=== PATIENT | female | born 1960 | race Caucasian/White ===

== ENCOUNTER 2019-10-10 13:13 | Observation (INO) | payer OTHER ==
[2019-10-10 15:05] LABS: #Eosinphils 0.2 thou/uL (0.0-0.7); #Lymphocytes 0.6 thou/uL (1.20-3.40); #Monocytes 0.7 thou/uL (0.11-0.59); #Neutrophils 5.6 thou/uL (1.40-6.50); %Basophils 0.3 % (0.0-1.0); %Eosinophils 2.2 % (0.0-10.0); %Lymphocytes 8.6 % (21.0-51.0); %Monocytes 9.4 % (0.0-10.0); %Neutrophils 79.6 % (42.0-75.0); Hemoglobin 15.3 g/dL (12.0-16.0); Mean Corpuscular HGB CONC 31.7 g/dL (32.0-36.0); Mean Corpuscular Hemoglobin 31.1 pg (27.0-31.0); Mean Corpuscular Volume 98.1 fL (78.0-98.0); Mean Platelet Volume 8.2 fL (7.4-10.4); Platelet Count 154 thou/uL (130-400); RBC Distribution Width 14.6 % (11.5-14.5); Red Blood Cell (RBC) Count 4.93 mill/uL (4.20-5.40); White Blood Cell (WBC) Count 7.1 thou/uL (4.8-10.8)
[2019-10-10 15:26] LABS: Anion Gap 10 mmol/L (10-20); BUN (Urea Nitrogen) 10 mg/dL (9.8-20.1); Calc. Creatinine Clearance 0 mL/min (70-130); Calcium 9.7 mg/dL (7.8-10.44); Carbon Dioxide 36 mmol/L (22-29); Chloride 98 mmol/L (98-107); Estimated GFR-MDRD 81; Glucose 96 mg/dL (70-105); Potassium 4.2 mmol/L (3.5-5.1); Sodium 140 mmol/L (136-145)
[2019-10-10] MEDS ORDERED: Senokot S 8.6-50 MG TAB PO PRN (18:26)
[2019-10-10] MEDS ORDERED: Ondansetron ODT 4 MG TAB PO PRN (18:26)
[2019-10-10] MEDS ORDERED: Acetaminophen 325 MG TAB PO PRN (18:26)
[2019-10-10] MEDS ORDERED: Bisacodyl 5 MG TAB PO PRN (18:26)
[2019-10-10] MEDS ORDERED: Nystatin Powder 15 GM BOT TOP PRN (18:28)
[2019-10-10] MEDS ORDERED: hydrALAZINE 20 MG/ML VIAL SLOW IVP PRN (19:02)
[2019-10-10] MEDS ORDERED: traMADol HCl 50 MG TAB PO PRN (19:11)
--- NOTE | 2019-10-10 19:43 | HP ---
CHIEF COMPLAINT: Deconditioning, inability to take care of herself. HISTORY OF PRESENT ILLNESS: A 59-year-old female, with recent admission at [facility] for sepsis secondary to pneumonia, admitted on September 27 and discharged a week later, presented back to their facility and stayed there for 2 days and discharged back home. The patient was not able to take care of herself at home. She usually walks with a walker at home. But this time, she is not able to do so. She lives with her son. She came here for rehab options, [facility] was attempted. Some insurance issues with [facility] that we need to keep her under observation until they get a preauthorization. This has been looked into it by the ER case picker. Due to the nature of being weekend, she will be admitted for observation and then possibly to the long term facility. Initial evaluation was quite unremarkable including her labs. The patient is brought in for observation. REVIEW OF SYSTEMS: She did not have any fever, night sweats, or chills. No productive cough. She is more complaining about her pannus being quite painful. Denies any dysuria or hematuria. No nausea, vomiting, abdominal pain, constipation, or diarrhea. PAST MEDICAL HISTORY: Hypertension. MEDICATIONS: 1. Cefdinir 300 mg twice a day. 2. Coreg 25 mg twice a day. 3. Norvasc 2.5 mg daily. 4. Aspirin 81 mg daily. 5. I believe, irbesartan 150 mg daily. 6. Lovastatin, unknown dose. 7. Potassium chloride 20 mEq daily. 8. Sertraline 150 mg at bedtime. SOCIAL HISTORY: She lives with her son. No smoking or alcohol use. FAMILY HISTORY: Noncontributory. PHYSICAL EXAMINATION: VITAL SIGNS: Her temperature is 97.9, pulse 74, blood pressure 128/53, saturating 98% on room air. GENERAL: The patient is alert and oriented x4. She is not in any acute distress, but she is morbidly obese. CARDIOVASCULAR: Regular rate and rhythm without murmurs. LUNGS: Clear with anterior auscultation. ABDOMEN: Quite protuberant with significant pannus, but it is soft. Her pannus on the right side looked okay, but on the left side she does have significant erythema around the pannus area. EXTREMITIES: Lower extremities, chronic changes with stasis dermatitis. But no weeping or skin blisters noted. LABORATORY DATA: Her BMP panel seems to be okay in the normal range. CBC without any elevated leukocytosis. Her platelet is 154,000, hemoglobin 15.3. IMPRESSION AND PLAN: 1. A 59-year-old female with recent admission at [facility] for sepsis secondary to pneumonia, and did not go for a rehab, went home. Due to debilitation and inability to walk at baseline, she returned back seeking assistance for rehab options. 2. Cellulitis around the pannus area. 3. Morbid obesity. 4. Hypertension. 5. Deconditioning due to her morbid obesity. The patient is admitted for observation. Continue with cefdinir 300 mg twice a day for her cellulitis around the pannus area. Does not look ominous to start her on IV antibiotics. Continue with Coreg, Norvasc, irbesartan for her hypertension. PT and OT consult as well as case picker consult for placement assistance. Lovenox b.i.d. for DVT prophylaxis, given her morbid obesity, and full code. Job ID: [id number] [facility]
[2019-10-10 21:05] VITALS: BMI 71.1
[2019-10-10] MEDS: Famotidine 20 MG TAB PO SCH (21:26)
[2019-10-10] MEDS: Cefdinir 300 MG CAP PO SCH (21:28)
[2019-10-10] MEDS: Enoxaparin Sodium 40 MG/0.4 ML SYRINGE SC SCH (21:28)
[2019-10-10] MEDS ORDERED: Carvedilol 25 MG TAB PO SCH (23:45)
[2019-10-11 06:36] LABS: #Eosinphils 0.2 thou/uL (0.0-0.7); #Lymphocytes 0.8 thou/uL (1.20-3.40); #Monocytes 0.7 thou/uL (0.11-0.59); #Neutrophils 4.1 thou/uL (1.40-6.50); %Lymphocytes 13.3 % (21.0-51.0); %Monocytes 11.9 % (0.0-10.0); %Neutrophils 71.9 % (42.0-75.0); Mean Corpuscular Hemoglobin 30.7 pg (27.0-31.0); Mean Corpuscular Volume 98.9 fL (78.0-98.0); Mean Platelet Volume 7.9 fL (7.4-10.4); Platelet Count 149 thou/uL (130-400); RBC Distribution Width 14.6 % (11.5-14.5); Red Blood Cell (RBC) Count 4.55 mill/uL (4.20-5.40); White Blood Cell (WBC) Count 5.7 thou/uL (4.8-10.8)
[2019-10-11 06:54] LABS: Anion Gap 12 mmol/L (10-20); BUN (Urea Nitrogen) 10 mg/dL (9.8-20.1); Calc. Creatinine Clearance 274 mL/min (70-130); Calcium 8.8 mg/dL (7.8-10.44); Carbon Dioxide 33 mmol/L (22-29); Chloride 98 mmol/L (98-107); Estimated GFR-MDRD Greater than 90; Glucose 70 mg/dL (70-105); Potassium 3.9 mmol/L (3.5-5.1); Sodium 139 mmol/L (136-145)
[2019-10-11] MEDS: Cefdinir 300 MG CAP PO SCH ×2 (08:37→22:10)
[2019-10-11] MEDS: Carvedilol 25 MG TAB PO SCH ×2 (08:40→17:41)
[2019-10-11] MEDS: Enoxaparin Sodium 40 MG/0.4 ML SYRINGE SC SCH ×3 (08:40→22:23)
[2019-10-11] MEDS: Famotidine 20 MG TAB PO SCH ×2 (08:40→22:11)
[2019-10-11] MEDS ORDERED: Amlodipine 5 MG TAB PO SCH ×2 (09:00)
--- NOTE | 2019-10-11 11:29 | PDOC.HOSPP ---
- Subjective Encounter Date: 10/11/19 Encounter Time: 10:20 Subjective: pt resing and no new co/o. left pannus area pain controlled. rehab plan discussed. - Objective Vital Signs & Weight: Vital Signs (12 hours) Temp Pulse Resp BP BP Pulse Ox 10/11/19 11:00 98.0 F 67 20 191/84 H 96 10/11/19 08:39 67 170/90 H 10/11/19 07:53 98.3 F 67 20 170/90 H 93 L 10/11/19 04:00 98.9 F 64 18 145/75 H 96 10/11/19 00:00 98.7 F 65 18 156/76 H 91 L Weight Weight 389 lb I&O: 10/10/19 10/11/19 10/12/19 06:59 06:59 06:59 Intake Total 500 Balance 500 Result Diagrams: 10/11/19 06:11 10/11/19 06:11 Hospitalist ROS - Medication Medications: Active Medications Generic Name Dose Route Start Last Admin Trade Name Bettie PRN Reason Stop Dose Admin Amlodipine Besylate 5 mg 10/11/19 09:00 10/11/19 08:39 Norvasc PO 5 mg DAILY NAE Administration Carvedilol 25 mg 10/11/19 08:00 10/11/19 08:40 Coreg PO 25 mg BID-WM NAE Administration Cefdinir 300 mg 10/10/19 21:00 10/11/19 08:37 Omnicef PO 300 mg BID NAE Administration Enoxaparin Sodium 40 mg 10/10/19 21:00 10/11/19 08:40 Lovenox SC 40 mg 0900,2100 NAE Administration Famotidine 20 mg 10/10/19 21:00 10/11/19 08:40 Pepcid PO 20 mg BID NAE Administration Sertraline HCl 150 mg 10/11/19 09:00 10/11/19 08:38 Zoloft PO 150 mg DAILY NAE Administration - Exam General Appearance: NAD, awake alert General - other findings: morbid obese ENT: normocephalic atraumatic Neck: supple Heart: RRR, normal peripheral pulses Respiratory: CTAB, normal chest expansion Gastrointestinal: soft, normal bowel sounds Gastrointestinal - other findings: significant pannus Neurological: cranial nerve grossly intact, normal sensation to touch Psychiatric: normal affect, normal behavior, A&O x 3 Hosp A/P - Plan cellulitis in left pannus area - cw cefdinir and nystatin HTN --not ocnt'd - inc'd the dose of norvasc and scheduled hydralazine decondition Morbid obesity --PT and CM for rehab consulted. Braulio Full code
[2019-10-11] MEDS: hydrALAZINE 25 MG TAB PO SCH ×2 (15:36→22:11)
--- NOTE | 2019-10-11 16:27 | PDOC.EVN ---
Event Note - Event Note Event Note: pt noted to have vaginal bleed, menopause over 10yrs. hgb stable around at 14. after reveiwing transvaginal US, will request water sponger consult, if needed.
[2019-10-11] MEDS ORDERED: Non-Formulary Item 1 EACH (Lovastatin [Lovastatin] 10 MG) PO SCH (21:00)
[2019-10-11] MEDS: Montelukast Sodium 10 mg Tablet PO SCH (22:10)
[2019-10-11] MEDS: Simvastatin 5 MG TAB PO SCH (22:10)
[2019-10-11] MEDS: Amlodipine 5 MG TAB PO SCH (22:10)
[2019-10-12] MEDS: Famotidine 20 MG TAB PO SCH ×2 (09:07→21:02)
[2019-10-12] MEDS: Carvedilol 25 MG TAB PO SCH ×2 (09:08→16:56)
[2019-10-12] MEDS: Cefdinir 300 MG CAP PO SCH ×2 (09:08→21:02)
[2019-10-12] MEDS: hydrALAZINE 25 MG TAB PO SCH ×3 (09:08→21:02)
[2019-10-12] MEDS: Amlodipine 5 MG TAB PO SCH ×2 (09:09→21:03)
[2019-10-12] MEDS: Enoxaparin Sodium 40 MG/0.4 ML SYRINGE SC SCH ×2 (09:11→21:02)
--- NOTE | 2019-10-12 12:28 | PDOC.HOSPP ---
- Subjective Encounter Date: 10/12/19 Encounter Time: 10:10 Subjective: Patient is doing well she still has some vaginal bleed. Ultrasound is pending. - Objective Vital Signs & Weight: Vital Signs (12 hours) Temp Pulse Resp BP BP Pulse Ox 10/12/19 09:09 67 10/12/19 09:08 67 145/74 H 10/12/19 07:51 98.2 F 56 L 20 145/74 H 96 10/12/19 04:46 98 F 55 L 19 148/83 H 91 L 10/12/19 00:31 98.1 F 57 L 19 143/82 H 92 L Weight Admit Weight 389 lb Weight 389 lb I&O: 10/11/19 10/12/19 10/13/19 06:59 06:59 06:59 Intake Total 500 400 Balance 500 400 Result Diagrams: 10/11/19 06:11 10/11/19 06:11 Hospitalist ROS - Medication Medications: Active Medications Generic Name Dose Route Start Last Admin Trade Name Freq PRN Reason Stop Dose Admin Amlodipine Besylate 5 mg 10/11/19 21:00 10/12/19 09:09 Norvasc PO 5 mg BID NAE Administration Carvedilol 25 mg 10/11/19 08:00 10/12/19 09:08 Coreg PO 25 mg BID-WM NAE Administration Cefdinir 300 mg 10/10/19 21:00 10/12/19 09:08 Omnicef PO 300 mg BID NAE Administration Enoxaparin Sodium 40 mg 10/10/19 21:00 10/12/19 09:11 Lovenox SC 40 mg 0900,2100 NAE Administration Famotidine 20 mg 10/10/19 21:00 10/12/19 09:07 Pepcid PO 20 mg BID NAE Administration Hydralazine HCl 25 mg 10/11/19 15:00 10/12/19 09:08 Apresoline PO 25 mg TID NAE Administration Montelukast Sodium 10 mg 10/11/19 21:00 10/11/19 22:10 Singulair PO 10 mg HS NAE Administration Sertraline HCl 150 mg 10/11/19 09:00 10/12/19 09:08 Zoloft PO 150 mg DAILY NAE Administration Simvastatin 5 mg 10/11/19 21:00 10/11/19 22:10 Zocor PO 5 mg HS NAE Administration - Exam General Appearance: NAD, awake alert General - other findings: Obese Eye: PERRL ENT: normocephalic atraumatic Neck: supple Heart: RRR Respiratory: CTAB, normal chest expansion Gastrointestinal: soft, normal bowel sounds Neurological: cranial nerve grossly intact, no new deficit Psychiatric: normal affect, normal behavior, A&O x 3 Hosp A/P - Plan cellulitis in left pannus area - cw cefdinir and nystatin HTN --not ocnt'd - inc'd the dose of norvasc and scheduled hydralazine decondition Morbid obesity --PT and CM for rehab consulted. Lovenox Full code vaginal bleed, -menopause over 10yrs. -hgb stable around at 14. -transvaginal US, w -Request topographical engineer consult. -May need to follow up in the clinic, will establish the contact, while waiting for rehab.
--- NOTE | 2019-10-12 12:41 | ULT ---
ULTRASOUND PELVIC ULTRASOUND TRANSVAGINAL DOPPLER DUPLEX: DATE: 10/12/2019 HISTORY: 59-year-old female with vaginal bleeding TECHNIQUE: Transabdominal transducer and endovaginal transducer used to visualize intrapelvic contents with zamora scale, color-flow, and spectral analysis. FINDINGS: Because of body habitus and empty urinary bladder, intrapelvic contents are completely obscured on th e transabdominal images. On the transvaginal images, portions of the cervix are visualized. Endocervical canal is unremarkable . The rest of the uterus and ovaries, are not visualized. IMPRESSION: Nondiagnostic ultrasound study because of body habitus
--- NOTE | 2019-10-12 14:38 | CON ---
DATE OF CONSULTATION: 10/12/2019 REQUESTING PHYSICIAN: Yuniel Mills MD REASON FOR CONSULTATION: Vaginal bleeding. HISTORY OF PRESENT ILLNESS: Ms. Calvo is a 59-year-old white G1, P1, reportedly postmenopausal x10 years, who has had vaginal spotting over the last 2 days. She is currently in the hospital with a history of pneumonia and is here seeking placement for rehab care. The patient is a poor historian. The history is obtained directly from the patient. Of note is the fact that she states she had a normal Pap smear and exam 2 years ago in [place]. PAST MEDICAL HISTORY: Hypertension and obesity. PAST SURGICAL HISTORY: Hernia repair and panniculectomy. MEDICATIONS: Current medications are multiple and include, 1. Norvasc. 2. Coreg. 3. Omnicef. 4. Lovenox. 5. Pepcid. 6. Singulair. 7. Zocor. 8. Zofran. ALLERGIES: PENICILLINS, CLINDAMYCIN, DOXYCYCLINE, AND OXYCODONE. OTHERS ARE ALSO LISTED IN THE CHART. SOCIAL HISTORY: Denies tobacco or alcohol use. FAMILY HISTORY: She denies breast or pelvic malignancy in the family. PHYSICAL EXAMINATION: VITAL SIGNS: Vital signs this morning show a blood pressure of 154/74 with a pulse of 56, respirations of 20, and 96% O2 saturation on nasal cannula. GENERAL: The patient is pleasant and in no acute distress. ABDOMEN: Her abdomen is morbidly obese. PELVIC: Pelvic examination at the bedside with a bimanual shows only a small amount of blood on the glove. I feel no masses in her vagina, but I do not completely palpate her cervix as it appears to be located high in the vault. DIAGNOSTIC DATA: Pelvic ultrasound, both transabdominal and transvaginal ultrasounds are obtained. Both appear to be nondiagnostic. The transvaginal ultrasound apparently was not done with a full bladder. ASSESSMENT: Vaginal bleeding. PLAN: The patient's imaging is extremely limited at this point. I would recommend that the transvaginal ultrasound be repeated with a full bladder so that we can learn something about the contents of her pelvis. As the patient is not ambulatory at this time, I am unable to complete an adequate exam at the bedside. In this patient's best interest, I would think that when she is ambulatory, she needs a complete pelvic examination and this can be done at [facility] here locally. The number there is [phone] and an appointment can be made for her. Job ID: [id number]
[2019-10-12] MEDS ORDERED: Nystatin Powder 15 GM BOT TOP PRN (16:11)
[2019-10-12] MEDS: Simvastatin 5 MG TAB PO SCH (21:03)
[2019-10-12] MEDS: Montelukast Sodium 10 mg Tablet PO SCH (21:03)
[2019-10-12] MEDS: Nystatin Powder 15 GM BOT TOP SCH (21:04)
[2019-10-13] MEDS: hydrALAZINE 25 MG TAB PO SCH ×3 (08:32→22:49)
[2019-10-13] MEDS: Famotidine 20 MG TAB PO SCH ×2 (08:32→21:14)
[2019-10-13] MEDS: Carvedilol 25 MG TAB PO SCH ×2 (08:33→15:22)
[2019-10-13] MEDS: Amlodipine 5 MG TAB PO SCH ×2 (08:33→21:55)
[2019-10-13] MEDS: Enoxaparin Sodium 40 MG/0.4 ML SYRINGE SC SCH ×2 (08:33→21:14)
[2019-10-13] MEDS: Cefdinir 300 MG CAP PO SCH ×2 (09:54→21:13)
[2019-10-13] MEDS: Nystatin Powder 15 GM BOT TOP SCH ×2 (09:57→21:15)
--- NOTE | 2019-10-13 12:07 | ULT ---
TRANSABDOMINAL TRANSVAGINAL PELVIC ULTRASOUND DATE:: 10/13/2019 11:02 AM CLINICAL HISTORY: Vaginal bleeding. COMPARISON: Prior pelvic ultrasound dated October 12, 2019 TECHNIQUE: Grayscale, color Doppler and spectral Doppler images were obtained of the pelvis see a tra nsabdominal and transvaginal approach FINDINGS: UTERUS: Size: There is better detail of the uterus on the current examination due to poor distention the blad tani. The uterus measures 8.4 x 5.8 x 5.6 cm. Mass: None Cervix: Within normal limits. There are small nabothian cysts seen within the cervix Endometrial Thickness: Not seen OVARIES: The ovaries were not seen. CUL-DE-SAC: No free fluid IMPRESSION: Limited examination due to patient's body habitus. The endometrial stripe cannot be resolved. There a re small nabothian cysts within cervix. No free fluid is identified. The ovaries were not well seen. Would recommend consideration for MRI of the pelvis with and without contrast for additional ev aluation.
--- NOTE | 2019-10-13 12:52 | PDOC.HOSPP ---
- Subjective Encounter Date: 10/13/19 Encounter Time: 10:30 Subjective: PT is doing well she had no further vaginal bleed. We did the full bladder transvaginal ultrasound this morning. There is no mass found in the uterus ovaries were not seen no free fluid in the cul-de-sac the endometrial stripe cannot be resolved [I am unclear about what the report means resolved] - Objective Vital Signs & Weight: Vital Signs (12 hours) Temp Pulse Resp BP BP Pulse Ox 10/13/19 11:20 98.2 F 55 L 16 146/83 H 97 10/13/19 08:33 60 158/87 H 10/13/19 08:32 60 158/87 H 10/13/19 07:34 98.0 F 60 16 158/87 H 94 L 10/13/19 04:44 98.4 F 54 L 20 161/83 H 92 L Weight Admit Weight 389 lb Weight 389 lb I&O: 10/12/19 10/13/19 10/14/19 06:59 06:59 06:59 Intake Total 500 400 Balance 500 400 Result Diagrams: 10/11/19 06:11 10/11/19 06:11 Hospitalist ROS - Medication Medications: Active Medications Generic Name Dose Route Start Last Admin Trade Name Freq PRN Reason Stop Dose Admin Amlodipine Besylate 5 mg 10/11/19 21:00 10/13/19 08:33 Norvasc PO 5 mg BID NAE Administration Carvedilol 25 mg 10/11/19 08:00 10/13/19 08:33 Coreg PO 25 mg BID-WM NAE Administration Cefdinir 300 mg 10/10/19 21:00 10/13/19 09:54 Omnicef PO Not Given BID NAE Enoxaparin Sodium 40 mg 10/10/19 21:00 10/13/19 08:33 Lovenox SC 40 mg 0900,2100 NAE Administration Famotidine 20 mg 10/10/19 21:00 10/13/19 08:32 Pepcid PO 20 mg BID NAE Administration Hydralazine HCl 25 mg 10/11/19 15:00 10/13/19 08:32 Apresoline PO 25 mg TID NAE Administration Montelukast Sodium 10 mg 10/11/19 21:00 10/12/19 21:03 Singulair PO 10 mg HS NAE Administration Nystatin 0 gm 10/12/19 21:00 10/13/19 09:57 Mycostatin Powder TOP 1 applic BID NAE Administration Sertraline HCl 150 mg 10/11/19 09:00 10/13/19 08:32 Zoloft PO 150 mg DAILY NAE Administration Simvastatin 5 mg 10/11/19 21:00 10/12/19 21:03 Zocor PO 5 mg HS NAE Administration - Exam General Appearance: NAD, awake alert Eye: PERRL ENT: normocephalic atraumatic Neck: supple Heart: RRR, normal peripheral pulses Respiratory: CTAB, normal chest expansion Gastrointestinal: soft, normal bowel sounds Gastrointestinal - other findings: Massive pannus and fungal infection due to wetness beneath the soft tissues Neurological: no new deficit Hosp A/P - Plan cellulitis in left pannus area - cw cefdinir and nystatin HTN --not ocnt'd - inc'd the dose of norvasc and scheduled hydralazine decondition Morbid obesity --PT and CM for rehab consulted. Lovenox Full code vaginal bleed, -menopause over 10yrs. -hgb stable around at 14. -transvaginal US, w -Request physical therapy director consult. -May need to follow up in the clinic, will establish the contact, while waiting for rehab. We did the full bladder transvaginal ultrasound this morning. There is no mass found in the uterus ovaries were not seen no free fluid in the cul-de-sac the endometrial stripe cannot be resolved [I am unclear about what the report means resolved] I talked to the water main installer helper Dr. Hieu Langley. when patient is ambulatory, she needs a complete pelvic exam which can be done at the [facility] women[facility] clinic. number to call for an appointment [phone]. Now we are waiting for the rehab placement.
[2019-10-13] MEDS: Montelukast Sodium 10 mg Tablet PO SCH (21:12)
[2019-10-13] MEDS: Simvastatin 5 MG TAB PO SCH (21:16)
[2019-10-14] MEDS: Famotidine 20 MG TAB PO SCH ×2 (09:29→21:07)
[2019-10-14] MEDS: Cefdinir 300 MG CAP PO SCH ×2 (09:30→21:06)
[2019-10-14] MEDS: Amlodipine 5 MG TAB PO SCH ×2 (09:30→21:03)
[2019-10-14] MEDS: Enoxaparin Sodium 40 MG/0.4 ML SYRINGE SC SCH ×2 (09:30→21:06)
[2019-10-14] MEDS: Carvedilol 25 MG TAB PO SCH ×2 (09:30→17:17)
[2019-10-14] MEDS: hydrALAZINE 25 MG TAB PO SCH ×3 (09:30→21:05)
[2019-10-14] MEDS: Nystatin Powder 15 GM BOT TOP SCH ×2 (09:31→21:08)
--- NOTE | 2019-10-14 12:57 | PDOC.HOSPP ---
- Subjective Encounter Date: 10/14/19 Encounter Time: 10:40 Subjective: Patient wants to know whether her toenails can be trimmed. She appears well and [facility] I talked to the case management coordinator. - Objective Vital Signs & Weight: Vital Signs (12 hours) Temp Pulse Resp BP Pulse Ox 10/14/19 09:30 64 10/14/19 07:42 98.1 F 64 16 159/83 H 94 L Weight Admit Weight 389 lb Weight 389 lb I&O: 10/13/19 10/14/19 10/15/19 06:59 06:59 06:59 Intake Total 400 Balance 400 Result Diagrams: 10/11/19 06:11 10/11/19 06:11 Hospitalist ROS - Medication Medications: Active Medications Generic Name Dose Route Start Last Admin Trade Name Freq PRN Reason Stop Dose Admin Amlodipine Besylate 5 mg 10/11/19 21:00 10/14/19 09:30 Norvasc PO 5 mg BID NAE Administration Carvedilol 25 mg 10/11/19 08:00 10/14/19 09:30 Coreg PO 25 mg BID-WM NAE Administration Cefdinir 300 mg 10/10/19 21:00 10/14/19 09:30 Omnicef PO Not Given BID NAE Enoxaparin Sodium 40 mg 10/10/19 21:00 10/14/19 09:30 Lovenox SC 40 mg 0900,2100 NAE Administration Famotidine 20 mg 10/10/19 21:00 10/14/19 09:29 Pepcid PO 20 mg BID NAE Administration Hydralazine HCl 25 mg 10/11/19 15:00 10/14/19 09:30 Apresoline PO 25 mg TID NAE Administration Montelukast Sodium 10 mg 10/11/19 21:00 10/13/19 21:12 Singulair PO 10 mg HS NAE Administration Nystatin 0 gm 10/12/19 21:00 10/14/19 09:31 Mycostatin Powder TOP 1 applic BID NAE Administration Sertraline HCl 150 mg 10/11/19 09:00 10/14/19 09:30 Zoloft PO 150 mg DAILY NAE Administration Simvastatin 5 mg 10/11/19 21:00 10/13/19 21:16 Zocor PO 5 mg HS NAE Administration - Exam General Appearance: NAD, awake alert General - other findings: Obese, mild short of breath at rest but lung exam no adventitious lung soun Eye: PERRL ENT: normocephalic atraumatic Neck: supple Heart: RRR Respiratory: CTAB, normal chest expansion Gastrointestinal: soft, normal bowel sounds Gastrointestinal - other findings: huge pannus Neurological: no focal deficits Psychiatric: normal affect, normal behavior, A&O x 3 Hosp A/P - Plan cellulitis in left pannus area - cw cefdinir and nystatin HTN --not ocnt'd - inc'd the dose of norvasc and scheduled hydralazine decondition Morbid obesity --PT and CM for rehab consulted. Lovenox Full code vaginal bleed, -menopause over 10yrs. -hgb stable around at 14. -transvaginal US, w -Request apple checker consult. -May need to follow up in the clinic, will establish the contact, while waiting for rehab. We did the full bladder transvaginal ultrasound this morning. There is no mass found in the uterus ovaries were not seen no free fluid in the cul-de-sac the endometrial stripe cannot be resolved [I am unclear about what the report means resolved] I talked to the senior asp net developer Dr. Hieu Langley. when patient is ambulatory, she needs a complete pelvic exam which can be done at the [facility]. number to call for an appointment [phone]. Now we are waiting for the rehab placement. Toe nail growth --- outpt podiatry follow up. pending rehab.
[2019-10-14] MEDS: Montelukast Sodium 10 mg Tablet PO SCH (21:02)
[2019-10-14] MEDS: Simvastatin 5 MG TAB PO SCH (21:03)
[2019-10-15 07:35] VITALS: TEMP 98
[2019-10-15] MEDS: Cefdinir 300 MG CAP PO SCH (08:07)
[2019-10-15] MEDS: Famotidine 20 MG TAB PO SCH (08:07)
[2019-10-15] MEDS: Carvedilol 25 MG TAB PO SCH ×2 (08:08→16:34)
[2019-10-15] MEDS: hydrALAZINE 25 MG TAB PO SCH ×2 (08:08→15:29)
[2019-10-15] MEDS: Amlodipine 5 MG TAB PO SCH (08:08)
[2019-10-15] MEDS: Nystatin Powder 15 GM BOT TOP SCH (08:09)
[2019-10-15] MEDS: Enoxaparin Sodium 40 MG/0.4 ML SYRINGE SC SCH (08:09)
[2019-10-15 15:30] VITALS: BP 145/72
--- NOTE | 2019-10-16 08:58 | DIS ---
DATE OF ADMISSION: 10/10/2019 DATE OF DISCHARGE: 10/15/2019 DISCHARGE MEDICATIONS: 1. Nystatin twice a day as needed. 2. Singulair 10 mg at bedtime. 3. Clotrimazole. 4. Lovastatin 10 mg at bedtime. 5. Aspirin 81 mg daily. 6. Vitamin D3, 2000 units daily. 7. Ferrous sulfate 325 daily. 8. Coreg 25 mg twice a day. 9. Norvasc 5 mg daily. 10. Sertraline 150 mg daily. 11. Triamterene/hydrochlorothiazide 37.5/25 mg daily. DISCHARGE DIAGNOSES: 1. Vaginal bleed that stopped. 2. Debilitation due to body habitus. 3. Morbid obesity. [employer] consult with Dr. Henri Langley. The patient appears well. She has no complaints. She feels much better with pannus cellulitis that seems to be improved. She did not like cefdinir antibiotics. I have counseled her that she needs to follow up with [facility] when she is able. She needs to call for an appointment. She agreed. PHYSICAL EXAMINATION: VITAL SIGNS: On the day of discharge; temperature 98, pulse 66, blood pressure 156/79, saturating 94% with 2 L oxygen by nasal cannula. CARDIOVASCULAR: Regular rate and rhythm. LUNGS: Clear with anterior auscultation. ABDOMEN: Quite benign. HOSPITAL COURSE: This is a 59-year-old female with a BMI of 71 kg with 389 pounds, morbid obesity, presented with debilitation and not able to take care of herself at home. She also had cellulitis in her left pannus area. We treated with nystatin powder and cefdinir. She finished her course of antibiotics and she does not require any further plus she also felt quite nauseated with cefdinir. Her blood pressure also optimized with increasing her Norvasc to twice a day. The patient had vaginal bleed couple of times, and transvaginal ultrasound done twice, which did not reveal any abnormality. [employer] consulted. They recommended that she follows with the [facility]. The patient is clinically stable to transfer to [facility]. DISCHARGE INSTRUCTIONS: Activity as tolerated. Regular diet. Follow up with the PCP in 1 week after the rehab. Follow up with the [facility] when you can. Call the clinic for an appointment, . TIME SPENT: Discharge time took over 35 minutes. Job ID: [id number] [facility]
== END 2019-10-15 17:40 ==
LOC: ERS 13:13 → T4-A 17:59
PROVIDERS: ADMIT Internal Medicine; ATTEND Internal Medicine
DX: N93.9 Abnormal uterine and vaginal bleeding, unspecified (principal); R53.81 Other malaise; I10 Essential (primary) hypertension; L03.311 Cellulitis of abdominal wall; E66.01 Morbid (severe) obesity due to excess calories; Z68.45 Body mass index [BMI] 70 or greater, adult; Z79.82 Long term (current) use of aspirin; Z79.899 Other long term (current) drug therapy; Z88.0 Allergy status to penicillin; Z88.1 Allergy status to other antibiotic agents; Z88.2 Allergy status to sulfonamides; Z88.5 Allergy status to narcotic agent; Z88.8 Allergy status to other drugs, medicaments and biological substances
CPT/HCPCS: 36600; 76856; 80048; 85025; 96372; 99285; G0378; J1650

== ENCOUNTER 2019-12-06 15:09 | Emergency (ER) | payer OTHER ==
[2019-12-06] MEDS ORDERED: Ondansetron PF 4 MG/2 ML Vial ONE ×2 (15:41→20:02)
[2019-12-06 15:46] LABS: #Eosinphils 0.1 thou/uL (0.0-0.7); #Lymphocytes 1.3 thou/uL (1.20-3.40); #Monocytes 0.8 thou/uL (0.11-0.59); #Neutrophils 5.1 thou/uL (1.40-6.50); %Basophils 0.1 % (0.0-1.0); %Eosinophils 1.3 % (0.0-10.0); %Lymphocytes 17.1 % (21.0-51.0); %Monocytes 11.5 % (0.0-10.0); %Neutrophils 70.1 % (42.0-75.0); Hemoglobin 18.7 g/dL (12.0-16.0); Mean Corpuscular HGB CONC 31.3 g/dL (32.0-36.0); Mean Corpuscular Hemoglobin 29.3 pg (27.0-31.0); Mean Corpuscular Volume 93.8 fL (78.0-98.0); Mean Platelet Volume 9.2 fL (7.4-10.4); Platelet Count 132 thou/uL (130-400); RBC Distribution Width 13.1 % (11.5-14.5); Red Blood Cell (RBC) Count 6.38 mill/uL (4.20-5.40); White Blood Cell (WBC) Count 7.3 thou/uL (4.8-10.8)
[2019-12-06 16:07] LABS: ALT (SGPT) 22 U/L (8-55); AST (SGOT) 27 U/L (5-34); Albumin 4.2 g/dL (3.5-5.0); Alkaline Phosphatase 48 U/L (40-110); Anion Gap 19 mmol/L (10-20); BUN (Urea Nitrogen) 17 mg/dL (9.8-20.1); Bilirubin, Total 2.1 mg/dL (0.2-1.2); Calc. Creatinine Clearance 0 mL/min (70-130); Calcium 10.3 mg/dL (7.8-10.44); Carbon Dioxide 25 mmol/L (22-29); Chloride 96 mmol/L (98-107); Estimated GFR-MDRD 58; Globulin 3.7 g/dL (2.4-3.5); Glucose 85 mg/dL (70-105); Lipase 10 U/L (8-78); Potassium 3.4 mmol/L (3.5-5.1); Protein, Total 7.9 g/dL (6.0-8.3); Sodium 137 mmol/L (136-145)
--- NOTE | 2019-12-06 16:59 | CT ---
CT ABDOMEN AND PELVIS WITH IV CONTRAST 12/06/2019 CLINICAL INFORMATION: Abdominal pain and vomiting. COMPARISON: None. Technique: Multiple contiguous axial CT images are obtained through the abdomen and pelvis with IV contrast. Cor onal reformatted images are provided. FINDINGS: Lower Chest: Partially 7 mm pulmonary nodule left lateral costophrenic angle with calcified granuloma also seen at the left lung base. Vessels: Abdominal aorta is normal in caliber without evidence of an aortic dissection. Incidental no te is made of a circumaortic left renal vein. Abdomen: Portal vein:Patent Gallbladder: Filled with multiple gas densities related to multiple gallbladder calculi. Liver: Low-density lesion in the central liver measuring 5 cm. The patient's body wall is adjacent to the gantry of the CT scanner resulting in artifact through the upper abdomen which limits adequate evaluation. This could potential represent a large cyst, this cannot be further evaluated. Follow-up right upper quadrant ultrasound is recommended for further evaluation of this finding. Spleen: Enlarged in AP dimensions measuring 15 cm. Pancreas: within normal limits. Adrenals: Symmetric bilateral adrenal thickening which can be seen with adrenal hyperplasia. Kidneys: Artifact extending through the kidneys bilaterally much greater on the left. No obvious yemi l abnormality is appreciated. Bowel: Colonic diverticulosis is present. A 2.1 cm fat density area seen in the wall of the most prox imal transverse colon suggestive of a lipoma. Loops of small bowel are normal in caliber. Small hiatal hernia is present. Appendix: The appendix is visualized and normal in caliber. Peritoneum: No ascites or free air; no fluid collection. Mesentery and Retroperitoneum: No enlarged mesenteric or retroperitoneal lymph nodes. Abdominal Wall: within normal limits. Pelvis: Reproductive Organs: No pelvic masses. Bladder: within normal limits. Bones: No suspicious lytic or sclerotic osseous lesions. IMPRESSION: 1. Pulmonary nodule left lung base. CT thorax in 6 months is recommended for follow-up evaluation. 2. Hypodense lesion peripheral and central aspect of the liver measuring 5 cm. This lesion is difficu lt to actually characterize due to artifact through this region. A right upper quadrant ultrasound is recommended in attempt to further characterize this lesion. 3. Probable lipoma involving the wall of the proximal transverse colon. 4. Cholelithiasis. 5. No acute findings
[2019-12-06 19:15] LABS: Bilirubin Negative (Negative); Blood, Urine Negative (Negative); Clarity Clear (Clear); Glucose, Urine (Dipstick) Normal (Negative); Ketone, Urine Negative (Negative); Leukocyte Negative Leu/uL (Negative); Nitrite Negative (Negative); Protein, Urine (Dipstick) Negative (Neg-Trace); Urobilinogen Normal mg/dL (Less than 2)
[2019-12-06 19:16] LABS: Specific Gravity, Urine 1.051 (1.002-1.036)
== END 2019-12-06 21:18 | disposition home or self-care (01) ==
LOC: ERS 15:09
DX: R11.2 Nausea with vomiting, unspecified (principal); R19.7 Diarrhea, unspecified; K76.9 Liver disease, unspecified; R91.1 Solitary pulmonary nodule; E78.5 Hyperlipidemia, unspecified; E78.00 Pure hypercholesterolemia, unspecified; I10 Essential (primary) hypertension; K21.9 Gastro-esophageal reflux disease without esophagitis; F32.9 Major depressive disorder, single episode, unspecified; Z79.899 Other long term (current) drug therapy
CPT/HCPCS: 74177; 80053; 81003; 83690; 85025; 87077; 87086; 87186; 96361; 96374; 96376; J2405

== ENCOUNTER 2019-12-13 11:43 | Emergency (ER) | payer OTHER ==
[2019-12-13] MEDS ORDERED: Promethazine HCl 25 MG/ML VIAL ONE (12:14)
[2019-12-13 13:24] LABS: #Eosinphils 0.1 thou/uL (0.0-0.7); #Neutrophils 5.4 thou/uL (1.40-6.50); %Basophils 0.6 % (0.0-1.0); %Eosinophils 0.9 % (0.0-10.0); %Lymphocytes 13.6 % (21.0-51.0); %Monocytes 12.9 % (0.0-10.0); %Neutrophils 72.1 % (42.0-75.0); Hemoglobin 18.2 g/dL (12.0-16.0); Mean Corpuscular HGB CONC 32.7 g/dL (32.0-36.0); Mean Corpuscular Hemoglobin 30.4 pg (27.0-31.0); Mean Corpuscular Volume 92.9 fL (78.0-98.0); Mean Platelet Volume 9.9 fL (7.4-10.4); Platelet Count 137 thou/uL (130-400); RBC Distribution Width 12.9 % (11.5-14.5); Red Blood Cell (RBC) Count 5.99 mill/uL (4.20-5.40); White Blood Cell (WBC) Count 7.5 thou/uL (4.8-10.8)
[2019-12-13 13:46] LABS: ALT (SGPT) 19 U/L (8-55); AST (SGOT) 22 U/L (5-34); Albumin 3.8 g/dL (3.5-5.0); Alkaline Phosphatase 42 U/L (40-110); Anion Gap 22 mmol/L (10-20); BUN (Urea Nitrogen) 17 mg/dL (9.8-20.1); Bilirubin, Total 1.5 mg/dL (0.2-1.2); Calc. Creatinine Clearance 0 mL/min (70-130); Carbon Dioxide 18 mmol/L (22-29); Chloride 97 mmol/L (98-107); Estimated GFR-MDRD 61; Globulin 3.4 g/dL (2.4-3.5); Glucose 77 mg/dL (70-105); Potassium 3.7 mmol/L (3.5-5.1); Protein, Total 7.2 g/dL (6.0-8.3); Sodium 133 mmol/L (136-145)
[2019-12-13 16:26] LABS: Bacteria/HPF 4+ HPF (None Seen); Bilirubin Negative (Negative); Blood, Urine Trace (Negative); Clarity Turbid (Clear); Glucose, Urine (Dipstick) Normal (Negative); Ketone, Urine Trace mg/dL (Negative); Leukocyte 500 Leu/uL (Negative); Nitrite 2+ (Negative); Protein, Urine (Dipstick) 20 mg/dL (Neg-Trace); Urobilinogen Normal mg/dL (Less than 2); WBC/HPF Greater than 50 HPF (0-3); pH, Urine 5.5 (5.0-9.0)
== END 2019-12-13 21:38 | disposition home or self-care (01) ==
LOC: ERS 11:43
DX: N39.0 Urinary tract infection, site not specified (principal); R11.2 Nausea with vomiting, unspecified; E78.00 Pure hypercholesterolemia, unspecified; I10 Essential (primary) hypertension; K21.9 Gastro-esophageal reflux disease without esophagitis; F32.9 Major depressive disorder, single episode, unspecified; Z79.82 Long term (current) use of aspirin; Z79.899 Other long term (current) drug therapy
CPT/HCPCS: 36415; 80053; 81003; 81015; 85025; 87077; 87086; 87186; 96361; 96374; J2550

== ENCOUNTER 2020-01-11 14:32 | Inpatient (IN) | payer OTHER ==
--- NOTE | 2020-01-11 15:20 | CT ---
CT BRAIN WITHOUT CONTRAST: HISTORY: Dizziness, nystagmus and vomiting FINDINGS: No evidence of acute infarct, hemorrhage, midline shift or abnormal extra-axial fluid collections is seen. The ventricular size is appropriate and the basilar cisterns are patent. The bony calvarium is intact. The visualized paranasal sinuses and left mastoid air cells are well aerated. There is opa cification of the right mastoid air cells. There is artifact in the posterior fossa which reduces the sensitivity of the exam. IMPRESSION: No CT evidence of acute intracranial process. Further evaluation with MRI is recommended. Discussed over the telephone with ER physician Dr. Simmons at 3:16 PM
[2020-01-11 16:48] LABS: PTT 25.3 sec (22.9-36.1); Prothrombin Time 13.4 sec (12.0-14.7)
[2020-01-11 17:13] LABS: Mean Corpuscular HGB CONC 32.8 g/dL (32.0-36.0); Mean Corpuscular Volume 88.3 fL (78.0-98.0); Mean Platelet Volume 12.3 fL (7.4-10.4); Platelet Count 74 thou/uL (130-400); RBC Distribution Width 12.4 % (11.5-14.5); Red Blood Cell (RBC) Count 5.87 mill/uL (4.20-5.40); White Blood Cell (WBC) Count 10.2 thou/uL (4.8-10.8)
[2020-01-11 17:27] LABS: Bacteria/HPF 4+ HPF (None Seen); Bilirubin 2+ (Negative); Blood, Urine 2+ (Negative); Clarity Extra Turbid (Clear); Glucose, Urine (Dipstick) Normal (Negative); Ketone, Urine Trace mg/dL (Negative); Leukocyte 500 Leu/uL (Negative); Nitrite Negative (Negative); Protein, Urine (Dipstick) 50 mg/dL (Neg-Trace); Specific Gravity, Urine 1.025 (1.002-1.036); Squamous Epithelial 0-3 HPF (0-3); Transitional Epithelial 0-3 HPF (None Seen); Urobilinogen 6 mg/dL (Less than 2); WBC/HPF Greater than 50 HPF (0-3); pH, Urine 5.5 (5.0-9.0)
[2020-01-11 17:33] LABS: Band 2 % (5-11); Large Platelets SLIGHT; Lymphocytes 15 % (21-51); MDiff Complete? YES; Monocytes 6 % (0-10); Neutrophil 75 % (42-75); Platelet Morphology Comment Appears Decreased; RBC Morphology Normal; Reactive Lymphocytes 2 % (0-10)
[2020-01-11 17:34] LABS: AST (SGOT) 36 U/L (5-34); Anion Gap 27 mmol/L (10-20); Bilirubin, Total 1.6 mg/dL (0.2-1.2); Calcium 9.9 mg/dL (7.8-10.44); Carbon Dioxide 14 mmol/L (22-29); Chloride 95 mmol/L (98-107); Potassium 4.7 mmol/L (3.5-5.1); Sodium 131 mmol/L (136-145)
[2020-01-11 17:42] LABS: Albumin 3.9 g/dL (3.5-5.0); Globulin -0.9 g/dL (2.4-3.5)
[2020-01-11 17:45] LABS: Glucose 108 mg/dL (70-105)
[2020-01-11 17:48] LABS: Alkaline Phosphatase 53 U/L (40-110); Calc. Creatinine Clearance 0 mL/min (70-130); Estimated GFR-MDRD 39
[2020-01-11 17:49] LABS: BUN (Urea Nitrogen) 58 mg/dL (9.8-20.1)
[2020-01-11 17:51] LABS: ALT (SGPT) 30 U/L (8-55); Lipase 42 U/L (8-78)
[2020-01-11 18:19] LABS: CKMB 1.2 ng/mL (0-6.6)
[2020-01-11] MEDS ORDERED: Aspirin 300 MG Suppository ONE (19:08)
[2020-01-11] MEDS ORDERED: Aspirin 325 MG TAB ONE (19:08)
[2020-01-11] MEDS ORDERED: Vancomycin 1 GM/200 ML BAG ONE (19:24)
[2020-01-11 20:02] LABS: Lactic Acid 2.4 mmol/L (0.5-2.2)
--- NOTE | 2020-01-11 20:09 | PDOC.HHP ---
Hospitalist HPI - History of Present Illness Nausea and vomiting History of Present Illness: This is a 59-year-old female patient With a history of hypertension, GERD and varicose veins who was referred here by her GI doctor on account of sudden onset dizziness and vomiting. She is a resident of [facility]. At the time of my evaluation she was intermittently confused not knowing where she was history taking for her was somewhat difficult. Most of the history was taken from the charts and report from admitting physician. However informed she was alert and oriented x4 on arrival On arrival blood pressure was 101/76, pulse 84, respiratory rate 15, oxygen saturation 97 on 2 L. However blood pressure further decline to 87/68 with pulse going up to 102 while in the ED. Initial evaluation noted that she had nystagmus which was concerning for stroke. She had a CT scan of her head which was negative for any acute intracranial event. She refused to have a CTA and was initially unwilling to have an MRI. Her labs showed a lactic acid of 2.4, troponin of 0.051, EKG showed atrial fi brillation with right axis deviation with no significant ST or T wave changes concerning for ischemia. Sodium 131, creatinine 1.38 from a baseline of 0.94 on 12/13/2019, anion gap was elevated at 22. Urinalysis showed turbid urine with leukocytes of 500, protein 50, WBCs greater than 50 and bacteria 4+. She had a elevated hemoglobin at 17.0 however WBC was 10.2. Her bands were 2. Due to concerns of ongoing sepsis she was started on IV fluids 30 mils per KG3 L in all. She started on vancomycin and Levaquin. She also received 3 2 5 mg aspirin. Her blood pressures remained soft and peripheral IV line tissued she was given a central line. Hospitalist ROS - Review of Systems ROS unobtainable: due to mental status - Exam General Appearance: ill appearing General - other findings: Awake, Intermittently confused Eye - other findings: Right gaze complete. No nystagmus noted. Heart: no murmur, no gallops, no rubs, irregular Respiratory: no wheezes, no rales, no ronchi, no tachypnea Gastrointestinal: soft, non-tender, non-distended, normal bowel sounds Extremities: no cyanosis, no clubbing, no edema Neurological - other findings: Pressure edges positive. Otherwise no focal deficits Hospitalist Results - Labs Result Diagrams: 01/11/20 16:56 01/11/20 17:23 Lab results: WBC 10.2 thou/uL (4.8-10.8) 01/11/20 16:56 Hgb 17.0 g/dL (12.0-16.0) H 01/11/20 16:56 Hct 51.8 % (36.0-47.0) H 01/11/20 16:56 MCV 88.3 fL (78.0-98.0) 01/11/20 16:56 Plt Count 74 thou/uL (130-400) L 01/11/20 16:56 Band Neuts % (Manual) 2 % (5-11) L 01/11/20 16:56 Sodium 131 mmol/L (136-145) L 01/11/20 17:23 Potassium 4.7 mmol/L (3.5-5.1) 01/11/20 17:23 Chloride 95 mmol/L (98-107) L 01/11/20 17:23 Carbon Dioxide 14 mmol/L (22-29) L 01/11/20 17:23 BUN 58 mg/dL (9.8-20.1) H 01/11/20 17:23 Creatinine 1.38 mg/dL (0.6-1.1) H 01/11/20 17:23 Glucose 108 mg/dL (70-105) H 01/11/20 17:23 Lactic Acid 2.4 mmol/L (0.5-2.2) H 01/11/20 19:34 Calcium 9.9 mg/dL (7.8-10.44) 01/11/20 17:23 Total Bilirubin 1.6 mg/dL (0.2-1.2) H 01/11/20 17:23 AST 36 U/L (5-34) H 01/11/20 17:23 ALT 30 U/L (8-55) 01/11/20 17:23 Alkaline Phosphatase 53 U/L (40-110) 01/11/20 17:23 CK-MB (CK-2) 1.2 ng/mL (0-6.6) 01/11/20 16:35 Troponin I 0.051 ng/mL (< 0.028) H 01/11/20 16:35 Serum Total Protein 3.0 g/dL (6.0-8.3) L 01/11/20 17:23 Albumin 3.9 g/dL (3.5-5.0) 01/11/20 17:23 Lipase 42 U/L (8-78) 01/11/20 17:23 Urine Ketones Trace mg/dL (Negative) A 01/11/20 16:49 Urine Blood 2+ (Negative) A 01/11/20 16:49 Urine Nitrite Negative (Negative) 01/11/20 16:49 Ur Leukocyte Esterase 500 Spencer/uL (Negative) A 01/11/20 16:49 Urine RBC 4-6 HPF (0-3) A 01/11/20 16:49 Urine WBC Greater than 50 HPF (0-3) A 01/11/20 16:49 Ur Squamous Epith Cells 0-3 HPF (0-3) 01/11/20 16:49 Urine Bacteria 4+ HPF (None Seen) A 01/11/20 16:49 Hospitalist H&P A/P - Plan Plan: 59-year-old female resident of assisted for history of atrial fibrillation, hypertension and GERD being admitted on account of sepsis secondary to UTI with concerns for stroke and ACS. Severe sepsis Source UTI, hypotension, tachycardia, elevated lactic acid, elevated with mild altered mental state Received 30 mils per KG IV fluids We will continue on 100 mils per hour normal saline We will continue antibiotics on vancomycin and Levaquin as she is allergic to many other alternatives. May have to change Levaquin if mental state becomes worse. QT interval was 444 at presentation Blood cultures pending We will trend lactate Urinary tract infection Continue treat with vancomycin and Levaquin Follow-up on urine cultures Possible stroke CT scan was negative She refused a CTA MRI pending Patient however has A. fib Continue aspirin Hold anticoagulation until MRI review Lipid profile and A1c in a.m. Neuro consult in a.m. NSTEMItype II Elevated troponin likely demand This may be response to sepsis She denies any chest pain unlikely ACS We will however trend troponinconsider starting anticoagulation if further elevate. Continue aspirin for now Hyponatremia Mild Monitor BMP KIRILL Likely prerenal Hydrate BMP a.m. Atrial [id number] of 4 Likely driven by sepsis It is unclear whether this is new however not seen in any of her records Coagulationcontinue statin await MRI Check TSH Cardiology consult in a.m. DVT prophylaxisLovenox CODE STATUS full code
[2020-01-11] MEDS ORDERED: Norepinephrine 8 MG/0.9% NS 250 ML ONE (20:12)
[2020-01-11] MEDS ORDERED: Ondansetron PF 4 MG/2 ML Vial IVP PRN (20:33)
[2020-01-11] MEDS ORDERED: Ondansetron ODT 4 MG TAB PO PRN (20:33)
[2020-01-11] MEDS ORDERED: Labetalol HCl 100 MG/20 ML VIAL SLOW IVP PRN (20:36)
[2020-01-11] MEDS ORDERED: hydrALAZINE 20 MG/ML VIAL SLOW IVP PRN (20:36)
[2020-01-11] MEDS ORDERED: [UNRECOGNIZED DRUG - REMARK] FS SCH (20:36)
[2020-01-11] MEDS ORDERED: niCARdipine 25 MG in Sodium Chloride 0.9% 250 ML 250 ML IVPB PRN (20:36)
[2020-01-11 21:10] LABS: Cardiac Risk 9.9 (Less than 4.5)
[2020-01-11] MEDS ORDERED: Atorvastatin Calcium 40 MG TAB PO SCH (22:00)
[2020-01-11] MEDS ORDERED: Enoxaparin Sodium 120 MG/0.8 ML SYRINGE SC SCH (22:30)
[2020-01-11] MEDS ORDERED: Vancomycin 1 GM in Premix Bag 1 BAG IVPB SCH (22:30)
[2020-01-11 22:58] LABS: Troponin I 0.075 ng/mL (< 0.028)
[2020-01-11] MEDS: Sodium Chloride 0.9% 1,000 ML IV SCH (23:14)
[2020-01-11] MEDS ORDERED: Enoxaparin Sodium 100 MG/ML SYRINGE SC SCH (23:45)
[2020-01-11] MEDS ORDERED: Enoxaparin Sodium 30 MG/0.3 ML SYRINGE SC SCH (23:45)
[2020-01-11] MEDS ORDERED: Norepinephrine 8 MG/0.9% NS 250 ML IVPB SCH (23:45)
[2020-01-12 01:38] LABS: Troponin I 0.073 ng/mL (< 0.028)
[2020-01-12] MEDS: Sodium Chloride 0.9% 1,000 ML IV SCH ×2 (03:55→18:21)
[2020-01-12 05:07] LABS: Hemoglobin A1c 5.6 % (4.0-6.0)
[2020-01-12 05:27] LABS: Anion Gap 19 mmol/L (10-20); BUN (Urea Nitrogen) 57 mg/dL (9.8-20.1); Calc. Creatinine Clearance 114 mL/min (70-130); Calcium 8.7 mg/dL (7.8-10.44); Carbon Dioxide 19 mmol/L (22-29); Cardiac Risk 8.7 (Less than 4.5); Chloride 98 mmol/L (98-107); Cholesterol 192 mg/dl (< 200 Desired); Estimated GFR-MDRD 50; Glucose 125 mg/dL (70-105); HDL Cholesterol 22 mg/dL (>60 Neg Risk); LDL Cholesterol, Calculated 126 mg/dL; Potassium 3.3 mmol/L (3.5-5.1); Sodium 133 mmol/L (136-145); Triglycerides 218 mg/dL (Less than 150)
[2020-01-12] MEDS ORDERED: Sodium Chloride 0.9% 500 ML IVPB SCH (05:30)
[2020-01-12 05:52] LABS: Thyroid Stimulating Hormone 1.9859 uIU/mL (0.35-4.94)
[2020-01-12 05:58] LABS: Band 15 % (5-11); Hemoglobin 15.7 g/dL (12.0-16.0); Lymphocytes 9 % (21-51); MDiff Complete? YES; Mean Corpuscular HGB CONC 34.5 g/dL (32.0-36.0); Mean Corpuscular Hemoglobin 30.4 pg (27.0-31.0); Mean Corpuscular Volume 88.1 fL (78.0-98.0); Mean Platelet Volume 9.7 fL (7.4-10.4); Monocytes 11 % (0-10); Neutrophil 65 % (42-75); Platelet Count 74 thou/uL (130-400); Platelet Morphology Comment Appears Decreased; RBC Distribution Width 12.3 % (11.5-14.5); Red Blood Cell (RBC) Count 5.17 mill/uL (4.20-5.40); White Blood Cell (WBC) Count 14.3 thou/uL (4.8-10.8)
[2020-01-12] MEDS ORDERED: Vancomycin 1 GM in Premix Bag 1 BAG IVPB SCH (07:00)
--- NOTE | 2020-01-12 07:25 | CT ---
PRELIMINARY REPORT/[facility]/EMERGENCY AFTER HOURS PROCEDURE: EXAM: CT Head Without Intravenous Contrast. CLINICAL HISTORY: Follow up CVA., post t-PA TECHNIQUE: Axial computed tomography images of the head/brain without intravenous contrast. COMPARISON: CT\SR - CT BRAIN WO CON - 01/11/2020 03:12 PM CDT FINDINGS: BRAIN: No acute intraparenchymal hemorrhage. No mass lesion. No CT evidence for acute territorial infarct. N o midline shift or extra-axial collection. VENTRICLES: No hydrocephalus. ORBITS: The orbits are unremarkable. SINUSES AND MASTOIDS: The paranasal sinuses and mastoid air cells are clear. SOFT TISSUES: No significant facial or scalp soft tissue swelling evident. No radiopaque foreign body is seen. BONES: No acute skull fracture. IMPRESSION: No acute intracranial hemorrhage. ELECTRONICALLY SIGNED BY: Willem Brown M.D. Jan 12, 2020 3:26:32 AM CDT This report is intended for review by the ordering physician only, in accordance of law. If you recei ve this report in error, please call [facility] at [phone]. FINAL REPORT EMERGENCY AFTER HOURS CT OF THE BRAIN WITHOUT CONTRAST: COMPARISON: 01/11/2020. HISTORY: Follow-up stroke status post TPA. FINDINGS/IMPRESSION: I agree with the findings and impression given in the preliminary report per [facility] physici an. No evidence of acute intracranial abnormality. POS: RAUL
[2020-01-12] MEDS ORDERED: Clotrimazole 1 % Cream 30 GM TUBE TOP PRN (07:44)
[2020-01-12] MEDS ORDERED: Bisacodyl 10 MG SUPP PR PRN (07:46)
[2020-01-12] MEDS ORDERED: Zolpidem Tartrate 5 MG TAB PO PRN (07:46)
[2020-01-12] MEDS ORDERED: Senokot S 8.6-50 MG TAB PO PRN (07:46)
[2020-01-12] MEDS ORDERED: Cepastat Lozenges 1 LOZ PO PRN (07:46)
[2020-01-12] MEDS ORDERED: Benzonatate 100 MG CAP PO PRN (07:46)
[2020-01-12] MEDS ORDERED: Sodium Chloride 0.65% Nasal 44 ML BOT EA NARE PRN (07:46)
[2020-01-12] MEDS ORDERED: Loperamide HCl 2 MG CAP PO PRN (07:46)
[2020-01-12] MEDS ORDERED: Diabetic Tussin 200 MG/10 ML UDCUP PO PRN (07:46)
[2020-01-12] MEDS ORDERED: Calcium Carbonate 500 MG ChewTAB PO PRN (07:46)
[2020-01-12] MEDS ORDERED: Loratadine 10 MG TAB PO PRN (07:46)
[2020-01-12] MEDS ORDERED: FLU VACC QS2020-21(6MOS UP)/PF 60 MCG/0.5 ML SYRINGE IM ONE (09:00)
[2020-01-12] MEDS ORDERED: Aspirin 81 mg Enteric Coated Tablet PO SCH (09:00)
[2020-01-12] MEDS ORDERED: Enoxaparin Sodium 100 MG/ML SYRINGE SC SCH ×2 (09:00)
[2020-01-12] MEDS ORDERED: Enoxaparin Sodium 40 MG/0.4 ML SYRINGE SC SCH (09:00)
[2020-01-12] MEDS ORDERED: Enoxaparin Sodium 30 MG/0.3 ML SYRINGE SC SCH (09:00)
[2020-01-12] MEDS ORDERED: Albumin 25% 25 GM/100 ML BOT IVPB ONE (10:19)
[2020-01-12] MEDS: Cholecalciferol 1,000 UNITS (25 MCG) TAB PO SCH (10:22)
[2020-01-12] MEDS: Lactinex Tablet PO SCH (10:22)
[2020-01-12] MEDS: Ferrous Sulfate 325 MG TAB PO SCH (10:22)
[2020-01-12] MEDS: Nystatin Powder 15 GM BOT TOP SCH ×2 (10:23→21:20)
[2020-01-12] MEDS ORDERED: Sodium Chloride 0.9% 1,000 ML IV SCH (10:30)
--- NOTE | 2020-01-12 10:49 | CON ---
DATE OF CONSULTATION: REASON FOR CONSULTATION: New onset atrial fibrillation. PRIMARY THREADING MACHINE OPERATOR: None. HISTORY OF PRESENT ILLNESS: Ms. Calvo is a 59-year-old woman with no previous history of underlying coronary artery disease, who recently presented with dizziness, vomiting, and lightheadedness. She did have underlying confusion. No chest pain, pressure, shortness of breath, or associated symptoms. She also was found to be in atrial fibrillation, new onset. There was concern for cerebellar infarct. CT scan of the brain was negative. MRI initially was refused by the patient, but now will be scheduled for today. The patient denies fevers, chills, or other associated symptoms. She also was fairly profoundly hypotensive and Levophed was started. PAST MEDICAL HISTORY: Hypertension, acid reflux, and venous insufficiency. ALLERGIES: CEPHALEXIN, CLINDAMYCIN, DOXYCYCLINE, OXYCODONE, PANTOPRAZOLE, PENICILLIN, PREDNISONE, AND SULFA. HOME MEDICATIONS: Include, 1. Iron sulfate. 2. Aspirin. 3. Sertraline. 4. P.r.n. acetaminophen. 5. Floranex. 6. Carvedilol. 7. Famotidine. 8. Ondansetron. 9. Norvasc. 10. Omeprazole. REVIEW OF SYSTEMS: A 10-point review of systems is reviewed as above, otherwise negative. PHYSICAL EXAMINATION: VITAL SIGNS: Blood pressure 99/71 on Levophed, pulse 86, respirations 20. General: The patient is a pleasant female, in no acute distress, appears stated age. Head, Eyes, Ears, Nose and Throat: Sclerae without icterus. Mouth: Moist mucous membranes, normal palate. Neck: No jugular venous distention. Carotid upstroke is brisk. No bruits bilaterally. Lungs: Clear to auscultation. Heart: Irregularly . Abdomen: Soft, nontender, nondistended. Extremities: No edema. Neurologic: Slightly slurred speech. PERTINENT LABORATORY DATA: Hemoglobin 15.7, white blood cell count 14.3. Creatinine 1.13, sodium 133. Peak troponin 0.075. TSH 1.98. UA, extra turbid with 2+ blood, greater than 50 white blood cell count, positive leukocyte esterase, and positive for bacteria. IMPRESSION: 1. Hypotension, unknown etiology. 2. Dizziness and lightheadedness. 3. New onset atrial fibrillation. RECOMMENDATIONS: Certainly, I would still consider cerebellar infarct based on her slightly slurred speech on presentation. She also has new onset atrial fibrillation. MRI is pending. Other differential includes urosepsis with hypotension. She is currently requiring Levophed and is on antibiotic therapy. I would recommend echo to assess LVEF. Otherwise, I have no recommendations. Job ID: [id number]
--- NOTE | 2020-01-12 11:00 | PDOC.HOSPP ---
- Subjective Encounter Date: 01/12/20 Encounter Time: : Subjective: Seen and examined bedside today in ICU, patient is on Levophed, patient is getting EEG this morning, - Objective Vital Signs & Weight: Vital Signs (12 hours) Temp Pulse Ox 01/12/20 08:00 97.5 F L 01/12/20 06:19 100 01/12/20 04:00 98.2 F 01/12/20 01:56 100 01/12/20 00:00 97.6 F Weight Weight 290 lb 6.4 oz Most Recent Monitor Data Heart Rate from ECG 87 NIBP 95/69 NIBP BP-Mean 77 Respiration from ECG 16 SpO2 100 I&O: 01/11/20 01/12/20 01/13/20 06:59 06:59 06:59 Intake Total 665.1 500 Output Total 0 100 Balance 665.1 400 Result Diagrams: 01/12/20 04:00 01/12/20 04:00 Additional Labs: Accuchecks 01/11/20 15:14 POC Glucose 125 H Radiology Reviewed by me: Yes EKG Reviewed by me: Yes (Dede mensah) Hospitalist ROS - Review of Systems Constitutional: reports: weakness, malaise. denies: fever, chills, sweats, other Respiratory: denies: cough, dry, shortness of breath, hemoptysis, SOB with excertion, pleuritic pain, sputum, wheezing, other Cardiovascular: denies: chest pain, palpitations, orthopnea, paroxysmal noc. dyspnea, edema, light headedness, other Gastrointestinal: denies: nausea, vomiting, abdominal pain, diarrhea, constipation, melena, hematochezia, other Genitourinary: denies: dysuria, frequency, incontinence, hematuria, retention, other Musculoskeletal: denies: neck pain, shoulder pain, arm pain, back pain, hand pain, leg pain, foot pain, other Neurological: reports: weakness, change in speech. denies: numbness, incoordination, confusion, seizures, other - Medication Medications: Active Medications Generic Name Dose Route Start Last Admin Trade Name Freq PRN Reason Stop Dose Admin Acidophilus 1 tab 01/12/20 09:00 01/12/20 10:22 Lactinex Tablet PO 1 tab DAILY NAE Administration Cholecalciferol 2,000 units 01/12/20 09:00 01/12/20 10:22 Cholecalciferol 1,000 Units (25 Mcg) Tab PO 2,000 units DAILY NAE Administration Enoxaparin Sodium 100 mg 01/12/20 09:00 01/12/20 10:20 Enoxaparin Sodium 100 Mg/Ml Syringe SC 100 mg 09,2099 NAE Administration Enoxaparin Sodium 30 mg 01/12/20 09:00 01/12/20 10:20 Enoxaparin Sodium 30 Mg/0.3 Ml Syringe SC 30 mg 899,2099 NAE Administration Ferrous Sulfate 325 mg 01/12/20 09:00 01/12/20 10:22 Ferrous Sulfate 325 Mg Tab PO 325 mg DAILY NAE Administration Sodium Chloride 1,000 mls @ 100 mls/hr 01/11/20 21:00 01/12/20 03:55 Normal Saline 0.9% IV 1,000 mls .Q10H NAE Administration Sodium Chloride 1,000 mls @ 999 mls/hr 01/12/20 10:30 01/12/20 10:36 Normal Saline 0.9% IV 01/12/20 11:30 1,000 mls .Q1H1M NAE Administration Nystatin 0 gm 01/12/20 09:00 01/12/20 10:23 Nystatin Powder 15 Gm Bot TOP 1 applic BID NAE Administration Sertraline HCl 150 mg 01/12/20 09:00 01/12/20 10:22 Sertraline Hcl 100 Mg Tab PO 150 mg DAILY NAE Administration - Exam General Appearance: NAD, awake alert Eye: PERRL, anicteric sclera ENT: normocephalic atraumatic, no oropharyngeal lesions Neck: symmetric, no JVD Heart: no murmur, no gallops, no rubs, irregular Respiratory: no wheezes, no rales, no ronchi Gastrointestinal: soft, non-tender, non-distended, normal bowel sounds Gastrointestinal - other findings: Morbid obesity limiting exam Extremities: no clubbing, no edema Skin: normal turgor, no lesions Neurological: no new deficit Musculoskeletal: normal tone, normal strength Psychiatric: normal affect, normal behavior Hosp A/P (1) Septic shock Code(s): A41.9 - SEPSIS, UNSPECIFIED ORGANISM; R65.21 - SEVERE SEPSIS WITH SEPTIC SHOCK Status: Acute (2) Type 2 myocardial infarction Code(s): I21.A1 - MYOCARDIAL INFARCTION TYPE 2 Status: Acute (3) Encephalopathy acute Code(s): G93.40 - ENCEPHALOPATHY, UNSPECIFIED Status: Acute (4) Acute kidney injury Code(s): N17.9 - ACUTE KIDNEY FAILURE, UNSPECIFIED Status: Acute (5) Lactic acidosis Code(s): E87.2 - ACIDOSIS Status: Acute (6) UTI (urinary tract infection) Status: Acute Qualifiers: Urinary tract infection type: acute cystitis Hematuria presence: without hematuria Qualified Code(s): N30.00 - Acute cystitis without hematuria (7) Hyponatremia Code(s): E87.1 - HYPO-OSMOLALITY AND HYPONATREMIA Status: Acute (8) Hypokalemia Code(s): E87.6 - HYPOKALEMIA Status: Acute (9) Thrombocytopenia Code(s): D69.6 - THROMBOCYTOPENIA, UNSPECIFIED Status: Acute (10) New onset atrial fibrillation Code(s): I48.91 - UNSPECIFIED ATRIAL FIBRILLATION Status: Acute (11) Morbid obesity with BMI of 50.0-59.9, adult Code(s): E66.01 - MORBID (SEVERE) OBESITY DUE TO EXCESS CALORIES; Z68.43 - BODY MASS INDEX [BMI] 50.0-59.9, ADULT Status: Chronic (12) Physical deconditioning Code(s): R53.81 - OTHER MALAISE Status: Chronic (13) Anxiety and depression Code(s): F41.9 - ANXIETY DISORDER, UNSPECIFIED; F32.9 - MAJOR DEPRESSIVE DISORDER, SINGLE EPISODE, UNSPECIFIED Status: Chronic (14) Dyslipidemia Code(s): E78.5 - HYPERLIPIDEMIA, UNSPECIFIED Status: Chronic (15) GERD (gastroesophageal reflux disease) Code(s): K21.9 - GASTRO-ESOPHAGEAL REFLUX DISEASE WITHOUT ESOPHAGITIS Status: Chronic Qualifiers: Esophagitis presence: without esophagitis Qualified Code(s): K21.9 - Gastro-esophageal reflux disease without esophagitis - Plan old records reviewed/req, continue antibiotics, DVT proph w/SCDs Plan Continue Levophed and IV fluid to keep blood pressure up Continue levofloxacin and vancomycin and follow-up on culture result and change antibiotic accordingly EEG and MRI brain later on today Cardiology consulted and recommendation appreciated Echocardiography We will repeat labs tomorrow Monitor in CCU, We will hold on Lovenox because of low platelet count, once platelet count improve then will resume anticoagulation
[2020-01-12 11:08] LABS: SARS-CoV-2 MS2 Positive; SARS-CoV-2 N Gene Negative; SARS-CoV-2 S Gene Negative; SARS-CoV-2 by NAA Not Detected (NotDetected); SARS-CoV-2 orf1ab Negative
--- NOTE | 2020-01-12 12:59 | CON ---
NEUROLOGY CONSULTATION DATE OF CONSULTATION: 01/12/2020 REASON FOR CONSULTATION: Altered mental status, rule out CVA. HISTORY OF PRESENT ILLNESS: Ms. Calvo is a 59-year-old female with history significant for hypertension, gastroesophageal reflux disease, atrial fibrillation, who was referred to the hospital by the GI doctor because of sudden-onset dizziness, vomiting, and confusion. She is a resident of [facility], presented to the emergency room on 01/11/2020 with nausea, vomiting, and intermittent episodes of confusion. Her blood pressure on arrival was 101/76, pulse 84, respiratory rate 15. The patient is still confused, and the history is obtained from review of the medical records. In the emergency room, head CT was done, which was negative for acute intracranial pathology. The patient refused CTA and was unwilling to get an MRI. Labs were reviewed, which were significant for hyponatremia, sodium 131 and renal insufficiency with a creatinine of 1.38. EKG showed atrial fibrillation with no significant ST- or T-wave changes concerning for ischemia. The urinalysis was also abnormal and concern about UTI. There was a concern about ongoing sepsis, so she was given fluids, vancomycin, Levaquin, and also aspirin, and admitted to the CCU for further evaluation. REVIEW OF SYSTEMS: Unobtainable due to the patient's mental status. PAST MEDICAL HISTORY: Hypertension, GERD. PAST SURGICAL HISTORY: Not significant. FAMILY HISTORY: Not significant. SOCIAL HISTORY: The patient is a resident of [facility]. ALLERGIES: CEPHALEXIN, CLINDAMYCIN, DOXYCYCLINE, OXYCODONE, PANTOPRAZOLE. PHYSICAL EXAMINATION: General Appearance: NAD, awake alert Eye: PERRL, anicteric sclera ENT: normocephalic atraumatic, no oropharyngeal lesions Neck: symmetric, no JVD Heart: no murmur, no gallops, no rubs, irregular Respiratory: no wheezes, no rales, no ronchi Gastrointestinal: soft, non-tender, non-distended, normal bowel sounds Gastrointestinal - other findings: Morbid obesity limiting exam Extremities: no clubbing, no edema Skin: normal turgor, no lesions Neurological: Mental status; the patient is alert and oriented to person only. She does not follow commands. She does not maintain eye contact. She keeps repeating her name. Cranial nerves; pupils 4 mm, round and reactive to light. Face symmetric. Tongue midline. Moves neck in both directions. Hearing seems to be intact. Motor; muscle tone and bulk are normal. Moving all 4 extremities equally and symmetrically. Sensory; withdraws to nailbed pressure bilaterally. Cerebellar; did not cooperate with the testing. Gait deferred due to the patient's safety reason. Vital Signs & Weight: Vital Signs (12 hours) Temp Pulse Ox 01/12/20 08:00 97.5 F L 01/12/20 06:19 100 01/12/20 04:00 98.2 F 01/12/20 01:56 100 01/12/20 00:00 97.6 F Weight Weight 290 lb 6.4 oz Most Recent Monitor Data Heart Rate from ECG 87 NIBP 95/69 NIBP BP-Mean 77 Respiration from ECG 16 SpO2 100 I&O: 01/11/20 01/12/20 01/13/20 06:59 06:59 06:59 Intake Total 665.1 500 Output Total 0 100 Balance 665.1 400 Additional Labs: Accuchecks 01/11/20 15:14 POC Glucose 125 H Radiology Reviewed by me: Yes EKG Reviewed by me: Yes (Dede mensah) Active Medications Generic Name Dose Route Start Last Admin Trade Name Freq PRN Reason Stop Dose Admin Acidophilus 1 tab 01/12/20 09:00 01/12/20 10:22 Lactinex Tablet PO 1 tab DAILY NAE Administration Cholecalciferol 2,000 units 01/12/20 09:00 01/12/20 10:22 Cholecalciferol 1,000 Units (25 Mcg) Tab PO 2,000 units DAILY NAE Administration Enoxaparin Sodium 100 mg 01/12/20 09:00 01/12/20 10:20 Enoxaparin Sodium 100 Mg/Ml Syringe SC 100 mg NAE Administration Enoxaparin Sodium 30 mg 01/12/20 09:00 01/12/20 10:20 Enoxaparin Sodium 30 Mg/0.3 Ml Syringe SC 30 mg NAE Administration Ferrous Sulfate 325 mg 01/12/20 09:00 01/12/20 10:22 Ferrous Sulfate 325 Mg Tab PO 325 mg DAILY NAE Administration Sodium Chloride 1,000 mls @ 100 mls/hr 01/11/20 21:00 01/12/20 03:55 Normal Saline 0.9% IV 1,000 mls .Q10H NAE Administration Sodium Chloride 1,000 mls @ 999 mls/hr 01/12/20 10:30 01/12/20 10:36 Normal Saline 0.9% IV 01/12/20 11:30 1,000 mls .Q1H1M NAE Administration Nystatin 0 gm 01/12/20 09:00 01/12/20 10:23 Nystatin Powder 15 Gm Bot TOP 1 applic BID NAE Administration Sertraline HCl 150 mg 01/12/20 09:00 01/12/20 10:22 Sertraline Hcl 100 Mg Tab PO 150 mg DAILY NAE Administration DIAGNOSTIC STUDIES: Data reviewed. I reviewed the labs, which were significant for elevated hemoglobin and low platelets 74, and also for hyponatremia, chronic kidney disease, and hyperglycemia. CT scan reviewed, which was negative for acute intracranial pathology. Lab results: WBC 10.2 thou/uL (4.8-10.8) 01/11/20 16:56 Hgb 17.0 g/dL (12.0-16.0) H 01/11/20 16:56 Hct 51.8 % (36.0-47.0) H 01/11/20 16:56 MCV 88.3 fL (78.0-98.0) 01/11/20 16:56 Plt Count 74 thou/uL (130-400) L 01/11/20 16:56 Band Neuts % (Manual) 2 % (5-11) L 01/11/20 16:56 Sodium 131 mmol/L (136-145) L 01/11/20 17:23 Potassium 4.7 mmol/L (3.5-5.1) 01/11/20 17:23 Chloride 95 mmol/L (98-107) L 01/11/20 17:23 Carbon Dioxide 14 mmol/L (22-29) L 01/11/20 17:23 BUN 58 mg/dL (9.8-20.1) H 01/11/20 17:23 Creatinine 1.38 mg/dL (0.6-1.1) H 01/11/20 17:23 Glucose 108 mg/dL (70-105) H 01/11/20 17:23 Lactic Acid 2.4 mmol/L (0.5-2.2) H 01/11/20 19:34 Calcium 9.9 mg/dL (7.8-10.44) 01/11/20 17:23 Total Bilirubin 1.6 mg/dL (0.2-1.2) H 01/11/20 17:23 AST 36 U/L (5-34) H 01/11/20 17:23 ALT 30 U/L (8-55) 01/11/20 17:23 Alkaline Phosphatase 53 U/L (40-110) 01/11/20 17:23 CK-MB (CK-2) 1.2 ng/mL (0-6.6) 01/11/20 16:35 Troponin I 0.051 ng/mL (< 0.028) H 01/11/20 16:35 Serum Total Protein 3.0 g/dL (6.0-8.3) L 01/11/20 17:23 Albumin 3.9 g/dL (3.5-5.0) 01/11/20 17:23 Lipase 42 U/L (8-78) 01/11/20 17:23 Urine Ketones Trace mg/dL (Negative) A 01/11/20 16:49 Urine Blood 2+ (Negative) A 01/11/20 16:49 Urine Nitrite Negative (Negative) 01/11/20 16:49 Ur Leukocyte Esterase 500 Spencer/uL (Negative) A 01/11/20 16:49 Urine RBC 4-6 HPF (0-3) A 01/11/20 16:49 Urine WBC Greater than 50 HPF (0-3) A 01/11/20 16:49 Ur Squamous Epith Cells 0-3 HPF (0-3) 01/11/20 16:49 Urine Bacteria 4+ HPF (None Seen) A 01/11/20 16:49 ASSESSMENT AND PLAN: (1) Septic shock Code(s): A41.9 - SEPSIS, UNSPECIFIED ORGANISM; R65.21 - SEVERE SEPSIS WITH SEPTIC SHOCK Status: Acute (2) Type 2 myocardial infarction Code(s): I21.A1 - MYOCARDIAL INFARCTION TYPE 2 Status: Acute (3) Encephalopathy acute Code(s): G93.40 - ENCEPHALOPATHY, UNSPECIFIED Status: Acute (4) Acute kidney injury Code(s): N17.9 - ACUTE KIDNEY FAILURE, UNSPECIFIED Status: Acute (5) Lactic acidosis Code(s): E87.2 - ACIDOSIS Status: Acute (6) UTI (urinary tract infection) Status: Acute Qualifiers: Urinary tract infection type: acute cystitis Hematuria presence: without hematuria Qualified Code(s): N30.00 - Acute cystitis without hematuria (7) Hyponatremia Code(s): E87.1 - HYPO-OSMOLALITY AND HYPONATREMIA Status: Acute (8) Hypokalemia Code(s): E87.6 - HYPOKALEMIA Status: Acute (9) Thrombocytopenia Code(s): D69.6 - THROMBOCYTOPENIA, UNSPECIFIED Status: Acute (10) New onset atrial fibrillation Code(s): I48.91 - UNSPECIFIED ATRIAL FIBRILLATION Status: Acute (11) Morbid obesity with BMI of 50.0-59.9, adult Code(s): E66.01 - MORBID (SEVERE) OBESITY DUE TO EXCESS CALORIES; Z68.43 - BODY MASS INDEX [BMI] 50.0-59.9, ADULT Status: Chronic (12) Physical deconditioning Code(s): R53.81 - OTHER MALAISE Status: Chronic (13) Anxiety and depression Code(s): F41.9 - ANXIETY DISORDER, UNSPECIFIED; F32.9 - MAJOR DEPRESSIVE DISORDER, SINGLE EPISODE, UNSPECIFIED Status: Chronic (14) Dyslipidemia Code(s): E78.5 - HYPERLIPIDEMIA, UNSPECIFIED Status: Chronic (15) GERD (gastroesophageal reflux disease) Code(s): K21.9 - GASTRO-ESOPHAGEAL REFLUX DISEASE WITHOUT ESOPHAGITIS Status: Chronic Qualifiers: Esophagitis presence: without esophagitis Qualified Code(s): K21.9 - Gastro-esophageal reflux disease without esophagitis Ms. Calvo is a 59-year-old female with history significant for atrial fibrillation, hypertension, gastroesophageal reflux disease, admitted because of sepsis secondary to urinary tract infection and there is also a concern about stroke and acute coronary syndrome. Altered mental status seems to be multifactorial secondary to infectious and metabolic etiology; however, intracranial process could not be completely ruled out but no new neurological deficits. Head CT reviewed, which was negative for acute intracranial pathology. Consider carotid Dopplers and 2D echocardiogram. Continue telemetry. Consider Cardiology input considering atrial fibrillation. Continue aspirin and high-intensity statin for secondary stroke prevention. MRI of the brain to assess for acute intracranial pathology. Check hemoglobin A1c, lipid panel, and TSH. Neuro checks every 4 hours. EEG to evaluate for episodes of intermittent confusion is negative for seizure activity. Continue home medications. NPO until cleared by Speech, PT/OT. DVT prophylaxis. Continue medical management per primary team. We will continue to follow. Thank you for the consult. Job ID: [id number] HOLDEN
--- NOTE | 2020-01-12 15:03 | PDOC.EEG ---
Neurology EEG Report - Report Report: This EEG was performed using 24 channel [employer] video digital EEG machine with 24 disc electrodes. This was an extended 2 hours 4 minutes of inpatient video EEG recording. Digital analysis of the EEG was done for Arnie and seizure detection which revealed no abnormalities. Background: The posterior pattern rhythm is not observed. . Photic stimulation: No significant response seen with photic stimulation. Hyperventilation: Not performed. Sleep: Drowsiness and sleep are observed during the recording EEG diagnosis: Intermittent irregular theta activity seen throughout the recording. Absence of posterior background rhythm. Clinical interpretation: This EEG is consistent with moderate generalized nonspecific cerebral dysfunction.
[2020-01-12] MEDS: Atorvastatin Calcium 40 MG TAB PO SCH (19:44)
[2020-01-12] MEDS: Vancomycin 1.5 GRAM/300 ML BAG 1.5 GM in Premix Bag 1 BAG IVPB SCH (21:20)
--- NOTE | 2020-01-13 00:59 | CON ---
DATE OF CONSULTATION: 01/12/2020 HISTORY OF PRESENT ILLNESS: Ms. Calvo is a 59-year-old female. Apparently, she is a resident of full-time care environment. She presented with an altered mental status. She still apparently is not back to normal. No other history is obtainable. She was recently hospitalized at the beginning of the month at [facility]. PAST MEDICAL HISTORY: Remarkable for, 1. Obesity, deconditioning, and bedridden state. 2. Hypertension. 3. Depression. 4. History of cholelithiasis. 5. History of admission at the beginning of the month with nausea and vomiting. She underwent endoscopy on that admission and was found to have gastritis and started on a proton pump inhibitor. FAMILY HISTORY: Negative for lung disease in early age, reviewing all records. SOCIAL HISTORY: She is a nonsmoker and nondrinker. ALLERGIES: REPORTS ALLERGIES TO CEPHALOSPORINS, CLINDAMYCIN, DOXYCYCLINE, AND OXYCODONE. CLAIMS TO BE ALLERGIC TO PROTONIX, PENICILLIN, PREDNISONE, AND SULFA. REVIEW OF SYSTEMS: Otherwise, noncontributory and not really obtainable. PHYSICAL EXAMINATION: VITAL SIGNS: Blood pressure 113/75, heart rate 92, respiratory rates in the teens, and oximetry is 100% on 2 L. HEENT: Pupils are reactive. Sclerae are anicteric. NECK: Supple. LUNGS: Remarkable for coarse equal breath sounds. HEART: Regular rhythm. No S3. ABDOMEN: Soft and nontender. EXTREMITIES: Without clubbing, cyanosis, or edema. She moves all extremities equally. LABORATORY DATA: Hemoglobin is 17.0 yesterday. At the end of November, hemoglobin is 18.7, arguing that she is intermittently severely volume contracted. Sodium 133, potassium 3.3, chloride 98, bicarb 19, BUN 57, creatinine 1.13. IMPRESSION: 1. Encephalopathy. 2. Chronic bedridden state. 3. Prerenal azotemia. 4. Hypotension. One blood culture is negative. One blood culture is positive. Urine culture is positive for E coli. 12/12 urine culture is positive for E coli as well. She will be treated for urinary tract infection. Blood cultures do not suggest that she is bacteremic. I suspect Staph is a contaminant. She will be hydrated, weaned off pressors, and transferred out of the Critical Care Unit once she is off pressors. I suspect the biggest part of her relatively low blood pressure is severe intravascular volume depletion since she is chronically bedridden and it is unlikely to have adequate p.o. liquid intake. This is a 70 min consult with greater than 50% of time spent on the unit with coordination of care. Job ID: [id number] [email or web address]
[2020-01-13] MEDS: Sodium Chloride 0.9% 1,000 ML IV SCH ×3 (02:30→21:57)
--- NOTE | 2020-01-13 09:48 | CT ---
CT HEAD WITHOUT IV CONTRAST COMPARISON: 01/12/2020 HISTORY: Follow-up CVA. Post TPA administration. TECHNIQUE: Axial CT imaging at 5 mm intervals from vertex through skull base without contrast FINDINGS: Low-density area seen within the lingula which is thought to most likely be artifactual and is only s een on a single slice selection. There is artifact extending through the skull base on this exam. There is no evidence of an acute cortical infarction, hemorrhage, mass effect, or midline shift. Mild cerebral volume loss is again present. Ventricular system is normal in size, shape, and position Again noted is opacification of the right mastoid air cells. Left mastoid air cells are clear. Visualized paranasal sinuses are clear. Osseous structures appear intact.No significant interval change from prior exam. IMPRESSION: 1. No acute intracranial abnormality demonstrated. 2. Persistent opacification right mastoid air cells.
[2020-01-13] MEDS: Lactinex Tablet PO SCH (10:26)
[2020-01-13] MEDS: Ferrous Sulfate 325 MG TAB PO SCH (10:26)
[2020-01-13] MEDS: Aspirin 81 mg Enteric Coated Tablet PO SCH (10:26)
[2020-01-13] MEDS: Cholecalciferol 1,000 UNITS (25 MCG) TAB PO SCH (10:27)
[2020-01-13] MEDS: Acetaminophen 500 MG TAB PO PRN (10:37)
[2020-01-13] MEDS: Nystatin Powder 15 GM BOT TOP SCH ×2 (12:49→22:00)
--- NOTE | 2020-01-13 15:27 | PDOC.HOSPP ---
- Subjective Encounter Date: 01/13/20 non-verbal (Patient is altered.) - Objective Vital Signs & Weight: Vital Signs (12 hours) Temp Pulse Resp BP Pulse Ox 01/13/20 13:10 98 F 91 18 102/71 97 01/13/20 08:00 100 01/13/20 07:00 97.6 F 01/13/20 06:30 99 01/13/20 05:00 98.4 F Weight Admit Weight 290 lb Weight 290 lb 6.4 oz Most Recent Monitor Data Heart Rate from ECG 99 NIBP 99/71 NIBP BP-Mean 80 Respiration from ECG 21 SpO2 97 I&O: 01/12/20 01/13/20 01/14/20 06:59 06:59 06:59 Intake Total 665.1 3879.2 671 Output Total 0 516 600 Balance 665.1 3363.2 71 Result Diagrams: 01/12/20 04:00 01/12/20 04:00 Hospitalist ROS - Medication Medications: Active Medications Generic Name Dose Route Start Last Admin Trade Name Freq PRN Reason Stop Dose Admin Acetaminophen 500 mg 01/12/20 07:44 01/13/20 10:37 Acetaminophen 500 Mg Tab PO 500 mg Q6HR PRN Administration Pain Acidophilus 1 tab 01/12/20 09:00 01/13/20 10:26 Lactinex Tablet PO 1 tab DAILY NAE Administration Aspirin 81 mg 01/13/20 09:00 01/13/20 10:26 Aspirin 81 Mg Enteric Coated Tablet PO 81 mg DAILY NAE Administration Atorvastatin Calcium 40 mg 01/12/20 21:00 01/12/20 19:44 Atorvastatin Calcium 40 Mg Tab PO 40 mg HS NAE Administration Cholecalciferol 2,000 units 01/12/20 09:00 01/13/20 10:27 Cholecalciferol 1,000 Units (25 Mcg) Tab PO 2,000 units DAILY NAE Administration Ferrous Sulfate 325 mg 01/12/20 09:00 01/13/20 10:26 Ferrous Sulfate 325 Mg Tab PO 325 mg DAILY NAE Administration Sodium Chloride 1,000 mls @ 100 mls/hr 01/11/20 21:00 01/13/20 10:27 Normal Saline 0.9% IV 1,000 mls .Q10H NAE Administration Vancomycin HCl 1.5 gm/ Device 300 mls @ 200 mls/hr 01/12/20 21:00 01/12/20 21:20 IVPB 300 mls 2100 NAE Administration Nystatin 0 gm 01/12/20 09:00 01/13/20 12:49 Nystatin Powder 15 Gm Bot TOP Not Given BID NAE Sertraline HCl 150 mg 01/12/20 09:00 01/13/20 10:26 Sertraline Hcl 100 Mg Tab PO 150 mg DAILY NAE Administration - Exam ENT: normocephalic atraumatic Neck: supple, no JVD Respiratory: normal chest expansion, no tachypnea Gastrointestinal: soft, non-tender, non-distended Extremities: no cyanosis, no clubbing Hosp A/P - Plan Hosp A/P (1) Septic shock Code(s): A41.9 - SEPSIS, UNSPECIFIED ORGANISM; R65.21 - SEVERE SEPSIS WITH SEPTIC SHOCK Status: Acute (2) Type 2 myocardial infarction Code(s): I21.A1 - MYOCARDIAL INFARCTION TYPE 2 Status: Acute (3) Encephalopathy acute Code(s): G93.40 - ENCEPHALOPATHY, UNSPECIFIED Status: Acute (4) Acute kidney injury Code(s): N17.9 - ACUTE KIDNEY FAILURE, UNSPECIFIED Status: Acute (5) Lactic acidosis Code(s): E87.2 - ACIDOSIS Status: Acute (6) UTI (urinary tract infection) Status: Acute Qualifiers: Urinary tract infection type: acute cystitis Hematuria presence: without hematuria Qualified Code(s): N30.00 - Acute cystitis without hematuria (7) Hyponatremia Code(s): E87.1 - HYPO-OSMOLALITY AND HYPONATREMIA Status: Acute (8) Hypokalemia Code(s): E87.6 - HYPOKALEMIA Status: Acute (9) Thrombocytopenia Code(s): D69.6 - THROMBOCYTOPENIA, UNSPECIFIED Status: Acute (10) New onset atrial fibrillation Code(s): I48.91 - UNSPECIFIED ATRIAL FIBRILLATION Status: Acute (11) Morbid obesity with BMI of 50.0-59.9, adult Code(s): E66.01 - MORBID (SEVERE) OBESITY DUE TO EXCESS CALORIES; Z68.43 - BODY MASS INDEX [BMI] 50.0-59.9, ADULT Status: Chronic (12) Physical deconditioning Code(s): R53.81 - OTHER MALAISE Status: Chronic (13) Anxiety and depression Code(s): F41.9 - ANXIETY DISORDER, UNSPECIFIED; F32.9 - MAJOR DEPRESSIVE DISORDER, SINGLE EPISODE, UNSPECIFIED Status: Chronic (14) Dyslipidemia Code(s): E78.5 - HYPERLIPIDEMIA, UNSPECIFIED Status: Chronic (15) GERD (gastroesophageal reflux disease) Code(s): K21.9 - GASTRO-ESOPHAGEAL REFLUX DISEASE WITHOUT ESOPHAGITIS Status: Chronic Qualifiers: Esophagitis presence: without esophagitis Qualified Code(s): K21.9 - Gastro-esophageal reflux disease without esophagitis - Plan The patient's hypertension improved since yesterday. She is off vasopressors. No source of infection has been identified. She was placed on empiric antibiotics. Pulmonology seems to think that the patient's low blood pressure is likely related to poor oral intake which is certainly plausible given her altered mental status. EEG showed diffuse slowing with no specific findings related to seizures. The patient is clinically stable and can be transferred to medical floor today.
--- NOTE | 2020-01-13 19:03 | PRG ---
DATE OF SERVICE: 01/13/2020 SUBJECTIVE: Ms. Calvo continues to have some mild confusion, although seems to be a little better today. No current complaints. OBJECTIVE: VITAL SIGNS: Blood pressure , pulse 91, temperature 98. LUNGS: Mild rhonchi and rales. HEART: ABDOMEN: Soft, nontender, nondistended. EXTREMITIES: 2+ pitting edema. PERTINENT LABORATORY DATA: Hemoglobin 15.5, hematocrit 45.5. Creatinine 1.13. IMPRESSION: 1. New-onset atrial fibrillation. 2. Sepsis. 3. Obesity. 4. Likely sleep apnea. RECOMMENDATIONS: The patient's heart rate appears to be controlled. She is off pressor agents. Continue antibiotic therapy in addition to anticoagulation. We would likely switch to oral anticoagulant once she is close to discharge. I would also recommend echo Doppler. Job ID: [id number]
[2020-01-13 20:13] LABS: Vancomycin, Trough 24.6 ug/mL
[2020-01-13] MEDS: Vancomycin 1.5 GRAM/300 ML BAG 1.5 GM in Premix Bag 1 BAG IVPB SCH (21:41)
[2020-01-13] MEDS: Vancomycin HCl 1.25 GM in Sodium Chloride 0.9% 250 ML 250 ML IVPB SCH (21:58)
[2020-01-13] MEDS: Atorvastatin Calcium 40 MG TAB PO SCH (21:58)
[2020-01-14] MEDS: Ferrous Sulfate 325 MG TAB PO SCH (08:49)
[2020-01-14] MEDS: Aspirin 81 mg Enteric Coated Tablet PO SCH (08:49)
[2020-01-14] MEDS: Cholecalciferol 1,000 UNITS (25 MCG) TAB PO SCH (08:49)
[2020-01-14] MEDS: Lactinex Tablet PO SCH (08:49)
[2020-01-14] MEDS: Nystatin Powder 15 GM BOT TOP SCH ×2 (08:50→21:32)
[2020-01-14] MEDS: Sodium Chloride 0.9% 1,000 ML IV SCH ×2 (08:54→17:37)
--- NOTE | 2020-01-14 12:49 | PDOC.HOSPP ---
- Subjective Encounter Date: 01/14/20 Subjective: The patient'S septic shock resolved. She denies any new complaints today. - Objective Vital Signs & Weight: Vital Signs (12 hours) Temp Pulse Resp BP Pulse Ox 01/14/20 11:15 98.4 F 98 16 102/71 97 01/14/20 08:49 98 01/14/20 07:22 98.8 F 89 16 92/63 98 01/14/20 03:57 98.5 F 91 20 88 L Weight Admit Weight 290 lb Weight 305 lb 6 oz Most Recent Monitor Data Heart Rate from ECG 99 NIBP 99/71 NIBP BP-Mean 80 Respiration from ECG 21 SpO2 97 I&O: 01/13/20 01/14/20 01/15/20 06:59 06:59 06:59 Intake Total 3879.2 2811 Output Total 516 1000 Balance 3363.2 1811 Result Diagrams: 01/12/20 04:00 01/12/20 04:00 Hospitalist ROS - Medication Medications: Active Medications Generic Name Dose Route Start Last Admin Trade Name Freq PRN Reason Stop Dose Admin Acetaminophen 500 mg 01/12/20 07:44 01/13/20 10:37 Acetaminophen 500 Mg Tab PO 500 mg Q6HR PRN Administration Pain Acidophilus 1 tab 01/12/20 09:00 01/14/20 08:49 Lactinex Tablet PO 1 tab DAILY NAE Administration Aspirin 81 mg 01/13/20 09:00 01/14/20 08:49 Aspirin 81 Mg Enteric Coated Tablet PO 81 mg DAILY NAE Administration Atorvastatin Calcium 40 mg 01/12/20 21:00 01/13/20 21:58 Atorvastatin Calcium 40 Mg Tab PO 40 mg HS NAE Administration Cholecalciferol 2,000 units 01/12/20 09:00 01/14/20 08:49 Cholecalciferol 1,000 Units (25 Mcg) Tab PO 2,000 units DAILY NAE Administration Ferrous Sulfate 325 mg 01/12/20 09:00 01/14/20 08:49 Ferrous Sulfate 325 Mg Tab PO 325 mg DAILY NAE Administration Sodium Chloride 1,000 mls @ 100 mls/hr 01/11/20 21:00 01/14/20 08:54 Normal Saline 0.9% IV 1,000 mls .Q10H NAE Administration Levofloxacin 750 mg/ Device 150 mls @ 100 mls/hr 01/13/20 18:00 01/13/20 17:24 IVPB 150 mls Q2D NAE Administration Vancomycin HCl 1.25 gm/ Sodium 250 mls @ 166.667 mls/hr 01/13/20 22:00 01/13/20 21:58 Chloride IVPB 250 mls Q24HR NAE Administration Nystatin 0 gm 01/12/20 09:00 01/14/20 08:50 Nystatin Powder 15 Gm Bot TOP 1 applic BID NAE Administration Sertraline HCl 150 mg 01/12/20 09:00 01/14/20 08:48 Sertraline Hcl 100 Mg Tab PO 150 mg DAILY NAE Administration - Exam General Appearance: awake alert ENT: normocephalic atraumatic Neck: supple, no JVD Respiratory: normal chest expansion, no tachypnea Extremities: no cyanosis, no clubbing Neurological: cranial nerve grossly intact, no weakness Hosp A/P - Plan Hosp A/P (1) Septic shock Code(s): A41.9 - SEPSIS, UNSPECIFIED ORGANISM; R65.21 - SEVERE SEPSIS WITH SEPTIC SHOCK Status: Acute (2) Type 2 myocardial infarction Code(s): I21.A1 - MYOCARDIAL INFARCTION TYPE 2 Status: Acute (3) Encephalopathy acute Code(s): G93.40 - ENCEPHALOPATHY, UNSPECIFIED Status: Acute (4) Acute kidney injury Code(s): N17.9 - ACUTE KIDNEY FAILURE, UNSPECIFIED Status: Acute (5) Lactic acidosis Code(s): E87.2 - ACIDOSIS Status: Acute (6) UTI (urinary tract infection) Status: Acute Qualifiers: Urinary tract infection type: acute cystitis Hematuria presence: without hematuria Qualified Code(s): N30.00 - Acute cystitis without hematuria (7) Hyponatremia Code(s): E87.1 - HYPO-OSMOLALITY AND HYPONATREMIA Status: Acute (8) Hypokalemia Code(s): E87.6 - HYPOKALEMIA Status: Acute (9) Thrombocytopenia Code(s): D69.6 - THROMBOCYTOPENIA, UNSPECIFIED Status: Acute (10) New onset atrial fibrillation Code(s): I48.91 - UNSPECIFIED ATRIAL FIBRILLATION Status: Acute (11) Morbid obesity with BMI of 50.0-59.9, adult Code(s): E66.01 - MORBID (SEVERE) OBESITY DUE TO EXCESS CALORIES; Z68.43 - BODY MASS INDEX [BMI] 50.0-59.9, ADULT Status: Chronic (12) Physical deconditioning Code(s): R53.81 - OTHER MALAISE Status: Chronic (13) Anxiety and depression Code(s): F41.9 - ANXIETY DISORDER, UNSPECIFIED; F32.9 - MAJOR DEPRESSIVE DISORDER, SINGLE EPISODE, UNSPECIFIED Status: Chronic (14) Dyslipidemia Code(s): E78.5 - HYPERLIPIDEMIA, UNSPECIFIED Status: Chronic (15) GERD (gastroesophageal reflux disease) Code(s): K21.9 - GASTRO-ESOPHAGEAL REFLUX DISEASE WITHOUT ESOPHAGITIS Status: Chronic Qualifiers: Esophagitis presence: without esophagitis Qualified Code(s): K21.9 - Gastro -esophageal reflux disease without esophagitis - Plan Septic shock resolved. Patient is off vasopressors. No source of infection has been identified. Remains on empiric antibiotics. Echocardiogram pending. The patient's rate is controlled. Start oral Eliquis for anticoagulation. EEG showed diffuse slowing with no specific findings related to seizures.
--- NOTE | 2020-01-14 15:57 | PRG ---
DATE OF SERVICE: 01/14/2020 SUBJECTIVE: Ms. Calvo is stable. No current complaints. Heart rate is stable. OBJECTIVE: VITAL SIGNS: Blood pressure 102/71, pulse 98, temperature 98.4. LUNGS: Clear to auscultation. HEART: Irregularly irregular. ABDOMEN: Soft, nontender, nondistended. EXTREMITIES: No edema. PERTINENT LABORATORY DATA: Hemoglobin 15.7. Creatinine 1.13. Echo Doppler shows normal LVEF with mildly enlarged right ventricle, [id number] aortic stenosis. IMPRESSION: 1. Atrial fibrillation. 2. Sepsis. 3. Hxqs-qj-jmqvgira aortic stenosis. 4. Right ventricular enlargement. RECOMMENDATIONS: Ms. Calvo likely has underlying undiagnosed sleep apnea. I would recommend an outpatient study. LVEF appears normal. She does have sbdg-sk-rhhgyfbs aortic stenosis and we will follow clinically. Continue current treatment. Recommend switching to novel oral anticoagulant agent (Xarelto) once she is close to discharge. Otherwise, continue Lovenox. We would continue atorvastatin in addition to aspirin. Avoid current rate control given marginal blood pressure. Job ID: [id number]
[2020-01-14] MEDS: Atorvastatin Calcium 40 MG TAB PO SCH (21:32)
[2020-01-14] MEDS: Apixaban 5 MG TAB PO SCH (21:32)
[2020-01-14] MEDS: Vancomycin HCl 1.25 GM in Sodium Chloride 0.9% 250 ML 250 ML IVPB SCH (21:35)
[2020-01-15] MEDS: Sodium Chloride 0.9% 1,000 ML IV SCH ×2 (05:10→17:14)
[2020-01-15] MEDS: Lactinex Tablet PO SCH (09:17)
[2020-01-15] MEDS: Aspirin 81 mg Enteric Coated Tablet PO SCH (09:17)
[2020-01-15] MEDS: Cholecalciferol 1,000 UNITS (25 MCG) TAB PO SCH (09:18)
[2020-01-15] MEDS: Ferrous Sulfate 325 MG TAB PO SCH (09:19)
[2020-01-15] MEDS: Apixaban 5 MG TAB PO SCH ×2 (09:20→20:45)
[2020-01-15] MEDS: Nystatin Powder 15 GM BOT TOP SCH ×2 (09:20→20:45)
--- NOTE | 2020-01-15 14:18 | PDOC.HOSPP ---
- Subjective Encounter Date: 01/15/20 Encounter Time: 10:40 Subjective: Patient appears quite ill. But she is hemodynamically stable. Lungs coarse crackles. She is alert oriented x2. Poor p.o. intake. Brother at bedside. Discussed with brother as well as RN. - Objective Vital Signs & Weight: Vital Signs (12 hours) Temp Pulse Resp BP Pulse Ox 01/15/20 08:00 97 01/15/20 07:39 99.0 F 87 18 110/78 97 Weight Admit Weight 290 lb Weight 305 lb 6 oz Most Recent Monitor Data Heart Rate from ECG 99 NIBP 99/71 NIBP BP-Mean 80 Respiration from ECG 21 SpO2 97 I&O: 01/14/20 01/15/20 01/16/20 06:59 06:59 06:59 Intake Total 2811 2740 Output Total 1000 640 Balance 1811 2100 Result Diagrams: 01/12/20 04:00 01/12/20 04:00 Hospitalist ROS - Medication Medications: Active Medications Generic Name Dose Route Start Last Admin Trade Name Freq PRN Reason Stop Dose Admin Acetaminophen 500 mg 01/12/20 07:44 01/13/20 10:37 Acetaminophen 500 Mg Tab PO 500 mg Q6HR PRN Administration Pain Acidophilus 1 tab 01/12/20 09:00 01/15/20 09:17 Lactinex Tablet PO 1 tab DAILY NAE Administration Apixaban 5 mg 01/14/20 21:00 01/15/20 09:20 Apixaban 5 Mg Tab PO 5 mg BID NAE Administration Aspirin 81 mg 01/13/20 09:00 01/15/20 09:17 Aspirin 81 Mg Enteric Coated Tablet PO 81 mg DAILY NAE Administration Atorvastatin Calcium 40 mg 01/12/20 21:00 01/14/20 21:32 Atorvastatin Calcium 40 Mg Tab PO 40 mg HS NAE Administration Cholecalciferol 2,000 units 01/12/20 09:00 01/15/20 09:18 Cholecalciferol 1,000 Units (25 Mcg) Tab PO 2,000 units DAILY NAE Administration Ferrous Sulfate 325 mg 01/12/20 09:00 01/15/20 09:19 Ferrous Sulfate 325 Mg Tab PO 325 mg DAILY NAE Administration Sodium Chloride 1,000 mls @ 100 mls/hr 01/11/20 21:00 01/15/20 05:10 Normal Saline 0.9% IV Not Given .Q10H NAE Levofloxacin 750 mg/ Device 150 mls @ 100 mls/hr 01/13/20 18:00 01/13/20 17:2 4 IVPB 150 mls Q2D NAE Administration Vancomycin HCl 1.25 gm/ Sodium 250 mls @ 166.667 mls/hr 01/13/20 22:00 01/14/20 21:35 Chloride IVPB 250 mls Q24HR NAE Administration Nystatin 0 gm 01/12/20 09:00 01/15/20 09:20 Nystatin Powder 15 Gm Bot TOP 1 applic BID NAE Administration Ondansetron HCl 4 mg 01/11/20 20:33 01/15/20 09:31 Ondansetron Pf 4 Mg/2 Ml Vial IVP 4 mg Q6H PRN Administration Nausea/Vomiting Sertraline HCl 150 mg 01/12/20 09:00 01/15/20 09:18 Sertraline Hcl 100 Mg Tab PO 150 mg DAILY NAE Administration - Exam General Appearance: NAD, awake alert, ill appearing Eye: PERRL ENT: normocephalic atraumatic Neck: supple Heart: RRR Respiratory: normal chest expansion, rales, rhonchi, tachypneic Gastrointestinal: soft, normal bowel sounds Neurological: no focal deficits Psychiatric: A&O x 3 Hosp A/P - Plan (1) Septic shock Code(s): A41.9 - SEPSIS, UNSPECIFIED ORGANISM; R65.21 - SEVERE SEPSIS WITH SEPTIC SHOCK Status: Acute (2) Type 2 myocardial infarction Code(s): I21.A1 - MYOCARDIAL INFARCTION TYPE 2 Status: Acute (3) Encephalopathy acute Code(s): G93.40 - ENCEPHALOPATHY, UNSPECIFIED Status: Acute (4) Acute kidney injury Code(s): N17.9 - ACUTE KIDNEY FAILURE, UNSPECIFIED Status: Acute (5) Lactic acidosis Code(s): E87.2 - ACIDOSIS Status: Acute (6) UTI (urinary tract infection) Status: Acute Qualifiers: Urinary tract infection type: acute cystitis Hematuria presence: without hematuria Qualified Code(s): N30.00 - Acute cystitis without hematuria (7) Hyponatremia Code(s): E87.1 - HYPO-OSMOLALITY AND HYPONATREMIA Status: Acute (8) Hypokalemia Code(s): E87.6 - HYPOKALEMIA Status: Acute (9) Thrombocytopenia Code(s): D69.6 - THROMBOCYTOPENIA, UNSPECIFIED Status: Acute (10) New onset atrial fibrillation Code(s): I48.91 - UNSPECIFIED ATRIAL FIBRILLATION Status: Acute (11) Morbid obesity with BMI of 50.0-59.9, adult Code(s): E66.01 - MORBID (SEVERE) OBESITY DUE TO EXCESS CALORIES; Z68.43 - BODY MASS INDEX [BMI] 50.0-59.9, ADULT Status: Chronic (12) Physical deconditioning Code(s): R53.81 - OTHER MALAISE Status: Chronic (13) Anxiety and depression Code(s): F41.9 - ANXIETY DISORDER, UNSPECIFIED; F32.9 - MAJOR DEPRESSIVE DISORDER, SINGLE EPISODE, UNSPECIFIED Status: Chronic (14) Dyslipidemia Code(s): E78.5 - HYPERLIPIDEMIA, UNSPECIFIED Status: Chronic (15) GERD (gastroesophageal reflux disease) Code(s): K21.9 - GASTRO-ESOPHAGEAL REFLUX DISEASE WITHOUT ESOPHAGITIS Status: Chronic Qualifiers: Esophagitis presence: without esophagitis Qualified Code(s): K21.9 - Gastro-esophageal reflux disease without esophagitis - Plan Septic shock resolved. Patient is off vasopressors. No source of infection has been identified. Remains on empiric antibiotics. A. fib--probably related to acute stress of septic shock Echocardiogram--- shows normal EF. No valvular vegetations or other abnormalities noted. -Given her history of coronary artery disease obesity as well as diabetic and limited ambulation she is at high risk for DVT and it is appropriate to start her on anticoagulant even though she is only 59-year-old. -Eliquis 5 mg twice a day.The patient's rate is controlled. EEG showed diffuse slowing with no specific findings related to seizures. Will consult physical therapy as she needs to be mobilized. Poor p.o. intake -Ensure with each meals.
[2020-01-15] MEDS: Atorvastatin Calcium 40 MG TAB PO SCH (20:45)
[2020-01-15] MEDS: Vancomycin HCl 1.25 GM in Sodium Chloride 0.9% 250 ML 250 ML IVPB SCH (22:00)
[2020-01-15 22:43] LABS: Vancomycin, Trough 20.9 ug/mL
[2020-01-15] MEDS ORDERED: Vancomycin 1 GM in Premix Bag 1 BAG IVPB SCH (23:00)
[2020-01-16] MEDS: Sodium Chloride 0.9% 1,000 ML IV SCH (01:15)
[2020-01-16 04:46] LABS: #Eosinphils 0.1 thou/uL (0.0-0.7); #Lymphocytes 1.2 thou/uL (1.20-3.40); #Monocytes 0.6 thou/uL (0.11-0.59); #Neutrophils 5.5 thou/uL (1.40-6.50); %Basophils 0.1 % (0.0-1.0); %Neutrophils 74.9 % (42.0-75.0); Hemoglobin 10.9 g/dL (12.0-16.0); Mean Corpuscular HGB CONC 34.4 g/dL (32.0-36.0); Mean Corpuscular Hemoglobin 30.1 pg (27.0-31.0); Mean Corpuscular Volume 87.5 fL (78.0-98.0); Platelet Count 25 thou/uL (130-400); RBC Distribution Width 12.3 % (11.5-14.5); Red Blood Cell (RBC) Count 3.64 mill/uL (4.20-5.40); White Blood Cell (WBC) Count 7.3 thou/uL (4.8-10.8)
[2020-01-16 04:58] LABS: Anion Gap 14 mmol/L (10-20); BUN (Urea Nitrogen) 17 mg/dL (9.8-20.1); Calc. Creatinine Clearance 189 mL/min (70-130); Carbon Dioxide 19 mmol/L (22-29); Chloride 116 mmol/L (98-107); Estimated GFR-MDRD 83; Sodium 146 mmol/L (136-145)
[2020-01-16 04:59] LABS: Glucose 85 mg/dL (70-105)
[2020-01-16 05:19] LABS: Potassium 2.7 mmol/L (3.5-5.1)
[2020-01-16 05:23] LABS: INR-International Normal Ratio 1.4; PTT 35.8 sec (22.9-36.1); Prothrombin Time 17.9 sec (12.0-14.7)
[2020-01-16] MEDS ORDERED: Sodium Chloride 0.45% 1,000 ML IV SCH (05:30)
[2020-01-16] MEDS ORDERED: Electrolyte Replacement Protoc 1 EACH EACH FS SCH (05:30)
[2020-01-16] MEDS: Potassium Chloride 40 MEQ in Premix Bag 1 BAG IVPB SCH ×2 (06:13→10:21)
[2020-01-16 06:57] LABS: Band 9 % (5-11); Eosinophils 1 % (0-10); Hemoglobin 11.5 g/dL (12.0-16.0); Lymphocytes 17 % (21-51); MDiff Complete? YES; Mean Corpuscular HGB CONC 34.2 g/dL (32.0-36.0); Mean Corpuscular Hemoglobin 29.9 pg (27.0-31.0); Mean Corpuscular Volume 87.5 fL (78.0-98.0); Mean Platelet Volume 9.2 fL (7.4-10.4); Metamyelocyte 2 % (0-0); Monocytes 6 % (0-10); Neutrophil 63 % (42-75); Platelet Count 31 thou/uL (130-400); Platelet Morphology Comment Appears Decreased; RBC Distribution Width 12.4 % (11.5-14.5); RBC Morphology Normal; Reactive Lymphocytes 2 % (0-10); Red Blood Cell (RBC) Count 3.85 mill/uL (4.20-5.40); White Blood Cell (WBC) Count 8.2 thou/uL (4.8-10.8)
[2020-01-16] MEDS ORDERED: Magnesium 2 GM/50 ML 2 GM in Premix Bag 1 BAG IVPB SCH (07:45)
[2020-01-16] MEDS: Ferrous Sulfate 325 MG TAB PO SCH (10:23)
[2020-01-16] MEDS: Lactinex Tablet PO SCH (10:23)
[2020-01-16] MEDS: Cholecalciferol 1,000 UNITS (25 MCG) TAB PO SCH (10:23)
[2020-01-16] MEDS: Nystatin Powder 15 GM BOT TOP SCH ×2 (10:25→20:39)
--- NOTE | 2020-01-16 11:51 | PDOC.HOSPP ---
- Subjective Encounter Date: 01/16/20 Encounter Time: 09:50 Subjective: Pt. was in bed. Appears in no acute distress. Speech intermittently improving. She has generalized weakness. She is hemodynamically stable. Discussed need to increase fluids and protein intake. Also discussed physical therapy would be in to help her regain strength. - Objective Vital Signs & Weight: Vital Signs (12 hours) Temp Pulse Resp BP Pulse Ox 01/16/20 08:00 96 01/16/20 07:45 97.8 F 94 18 122/69 96 01/16/20 04:00 98.9 F 91 20 91/62 95 01/16/20 00:01 98.9 F 94 20 150/84 H 98 Weight Admit Weight 290 lb Weight 305 lb 6 oz Most Recent Monitor Data Heart Rate from ECG 99 NIBP 99/71 NIBP BP-Mean 80 Respiration from ECG 21 SpO2 97 I&O: 01/15/20 01/16/20 01/17/20 06:59 06:59 05:59 Intake Total 2740 1446 Output Total 640 150 Balance 2100 1296 Result Diagrams: 01/16/20 06:27 01/16/20 04:13 Hospitalist ROS - Medication Medications: Active Medications Generic Name Dose Route Start Last Admin Trade Name Freq PRN Reason Stop Dose Admin Acetaminophen 500 mg 01/12/20 07:44 01/13/20 10:37 Acetaminophen 500 Mg Tab PO 500 mg Q6HR PRN Administration Pain Acidophilus 1 tab 01/12/20 09:00 01/16/20 10:23 Lactinex Tablet PO 1 tab DAILY NAE Administration Atorvastatin Calcium 40 mg 01/12/20 21:00 01/15/20 20:45 Atorvastatin Calcium 40 Mg Tab PO 40 mg HS NAE Administration Cholecalciferol 2,000 units 01/12/20 09:00 01/16/20 10:23 Cholecalciferol 1,000 Units (25 Mcg) Tab PO 2,000 units DAILY NAE Administration Ferrous Sulfate 325 mg 01/12/20 09:00 01/16/20 10:23 Ferrous Sulfate 325 Mg Tab PO 325 mg DAILY NAE Administration Levofloxacin 750 mg/ Device 150 mls @ 100 mls/hr 01/13/20 18:00 01/15/20 17: 18 IVPB 150 mls Q2D NAE Administration Vancomycin HCl 1 gm/ Device 200 mls @ 200 mls/hr 01/15/20 23:00 01/15/20 23:01 IVPB 200 mls Q24HR NAE Administration Sodium Chloride 1,000 mls @ 75 mls/hr 01/16/20 05:30 01/16/20 05:30 1/2 Normal Saline IV 1,000 mls .[id number] NAE Administration Potassium Chloride 40 meq/ 100 mls @ 25 mls/hr 01/16/20 06:00 01/16/20 10:21 Device IVPB 01/16/20 13:59 100 mls Q4H NAE Administration Nystatin 0 gm 01/12/20 09:00 01/16/20 10:25 Nystatin Powder 15 Gm Bot TOP 1 applic BID NAE Administration Ondansetron HCl 4 mg 01/11/20 20:33 01/15/20 09:31 Ondansetron Pf 4 Mg/2 Ml Vial IVP 4 mg Q6H PRN Administration Nausea/Vomiting Sertraline HCl 150 mg 01/12/20 09:00 01/16/20 10:24 Sertraline Hcl 100 Mg Tab PO 150 mg DAILY NAE Administration - Exam General Appearance: NAD, awake alert, ill appearing General - other findings: She is able to talk but her speech is quite slurred Heart: RRR, no murmur, no gallops, no rubs, normal peripheral pulses Respiratory: CTAB Respiratory - other findings: Crackles Gastrointestinal: soft, non-tender, non-distended Extremities - other findings: Strength 2 out of 5 in both upper and lower extremities Skin - other findings: No pressure ulcers or erythema noted. Neurological: normal sensation to touch, no new deficit, speech deficit Musculoskeletal: generalized weakness Psychiatric: normal affect, normal behavior, A&O x 3 Hosp A/P (1) Septic shock Code(s): A41.9 - SEPSIS, UNSPECIFIED ORGANISM; R65.21 - SEVERE SEPSIS WITH SEPTIC SHOCK Status: Acute (2) Type 2 myocardial infarction Code(s): I21.A1 - MYOCARDIAL INFARCTION TYPE 2 Status: Acute (3) Encephalopathy acute Code(s): G93.40 - ENCEPHALOPATHY, UNSPECIFIED Status: Acute (4) Acute kidney injury Code(s): N17.9 - ACUTE KIDNEY FAILURE, UNSPECIFIED Status: Acute (5) Hyponatremia Code(s): E87.1 - HYPO-OSMOLALITY AND HYPONATREMIA Status: Acute (6) Hypokalemia Code(s): E87.6 - HYPOKALEMIA Status: Acute (7) Thrombocytopenia Code(s): D69.6 - THROMBOCYTOPENIA, UNSPECIFIED Status: Acute (8) New onset atrial fibrillation Code(s): I48.91 - UNSPECIFIED ATRIAL FIBRILLATION Status: Acute (9) Morbid obesity with BMI of 50.0-59.9, adult Code(s): E66.01 - MORBID (SEVERE) OBESITY DUE TO EXCESS CALORIES; Z68.43 - BODY MASS INDEX [BMI] 50.0-59.9, ADULT Status: Chronic (10) Physical deconditioning Code(s): R53.81 - OTHER MALAISE Status: Chronic (11) Anxiety and depression Code(s): F41.9 - ANXIETY DISORDER, UNSPECIFIED; F32.9 - MAJOR DEPRESSIVE DISORDER, SINGLE EPISODE, UNSPECIFIED Status: Chronic (12) UTI (urinary tract infection) Status: Acute Qualifiers: Urinary tract infection type: acute cystitis Hematuria presence: without hematuria Qualified Code(s): N30.00 - Acute cystitis without hematuria (13) Lactic acidosis Code(s): E87.2 - ACIDOSIS Status: Acute (14) Dyslipidemia Code(s): E78.5 - HYPERLIPIDEMIA, UNSPECIFIED Status: Chronic (15) GERD (gastroesophageal reflux disease) Code(s): K21.9 - GASTRO-ESOPHAGEAL REFLUX DISEASE WITHOUT ESOPHAGITIS Status: Chronic Qualifiers: Esophagitis presence: without esophagitis Qualified Code(s): K21.9 - Gastro-esophageal reflux disease without esophagitis - Plan Septic shock resolved. Patient is off vasopressors. Blood culture positive for staphylococcus epidermidis, gram positive sonny, staphylococcus capitis and presumptive corynebacterium sp. Currently on vancomycin. -----> will discontinue that A. fib--probably related to acute stress of septic shock Echocardiogram--- shows normal EF. No valvular vegetations or other abnor malities noted. -Given her history of coronary artery disease obesity as well as diabetic and limited ambulation she is at high risk for DVT and it is appropriate to start her on anticoagulant even though she is only 59-year-old. -Eliquis 5 mg twice a day.The patient's heart rate is controlled. Hypokalemia-potassium chloride 40 mEq IV ordered Poor p.o. intake -Will order appetite stimulant Megace -Ensure with each meals. CVA with significant dysarthria -EEG showed diffuse slowing with no specific findings related to seizures. - Echocardiogram--- shows normal EF. No valvular vegetations or other abnormalities noted. -Repeat CT done on did not show any significant abnormalities. And no mass or bleed. Mastoid sinusitis. -No MRI tried twice due to her obesity they are not able to do it. Even though initial CT did not show any abnormality given the clinical impression of significant dysarthria she will likely have cerebellar stroke. -She has no significant sensory impairment facial droopiness. Her strength is quite impaired however that probably due to her overall debilitation rather than focus weakness due to stroke. -Since this is a cerebellar stroke she does not require anticoagulation technically, however as explained before, she would benefit with daily baby as pirin and/or AC for secondary stroke prevnetion -A1c 5.6 TSH in the normal range. B12 also in the normal range. Hyperlipidemia - her Ldl is 126 -She is on Lipitor - Morbid obese Debilitation due to obesity Physical Deconditioning-generalized weakness. ----Physical therapy consulted as she needs to be mobilized. Students note has been reviewed with the student and necessary changes has been made at today's progress note.
--- NOTE | 2020-01-16 13:56 | CON ---
DATE OF CONSULTATION: 01/16/2020 REQUESTING PROVIDER: TENZIN Toledo REASON FOR CONSULTATION: Melena and thrombocytopenia. HISTORY OF PRESENT ILLNESS: Mamie Calvo is a 59-year-old woman with morbid obesity. She was admitted to the hospital five days ago on 01/11/2020 with septic shock and altered mental status, also found to be in atrial fibrillation. There was initial concern for stroke, but multiple CT head have been negative. She has been unable to get an MRI due to her body habitus. Her hemodynamic parameters have significantly improved with treatment. She is off pressors. She has been on empiric antibiotics with vancomycin and Levaquin. I note the urine cultures are growing E. coli. For the atrial fibrillation a couple of days ago, she was started on Eliquis 5 mg twice daily. This morning, the patient started having significant vaginal bleeding as well as bleeding and oozing from several sites in the anterior abdomen and inguinal areas and noted to have a lot of bruising in the extremities. Labs were rechecked and demonstrated significant hemoglobin decline from 15.7 down to 10.9 over the past four days. Also new thrombocytopenia with platelets only 25. On recheck, hemoglobin was stable at 11.5 and platelets 31. It is unclear to me, but evidently there was concern for melenic stool as well. None of the nurses here on the floor have seen her have any bowel movement since she was transferred here several hours ago. She has remained hemodynamically stable and somewhat confused. Notably just within the past month, she was hospitalized here with nausea, vomiting, and abdominal pain. She was seen by Dr. Michele of Gastroenterology and underwent EGD on 12/25/2019. EGD showed an antral ulcer as well as erosive gastritis. He took biopsies, which showed chronic gastritis, negative for H. pylori. He had recommended that she be on PPI therapy. I see that she has not been on any PPI since her arrival here five days ago. Pantoprazole is on her allergy list, but it is unclear to me why that is and what reaction that might have been. Her Eliquis was held this morning. REVIEW OF SYSTEMS: Unable to obtain due to the patient's altered mental status. She is able to deny any abdominal pain or nausea currently. PAST MEDICAL HISTORY: Obesity, hypertension, GERD, depression, urinary tract infection, gallstones, anemia, coronary artery disease, diabetes, gastric ulcer seen on recent EGD 12/25/2019. Atrial fibrillation, new diagnosis this presentation with sepsis. Thrombocytopenia, new this admission in the context of sepsis. ALLERGIES: CEPHALEXIN, CLINDAMYCIN, DOXYCYCLINE, OXYCODONE, PANTOPRAZOLE, PENICILLIN, PREDNISONE, AND SULFA. INPATIENT MEDICATIONS: 1. Tylenol. 2. Acidophilus. 3. Lipitor. 4. Vitamin D3. 5. Ferrous sulfate 325 mg daily. 6. Levofloxacin 750 mg IV every other day. 7. Nystatin powder topically. 8. Zofran p.r.n. 9. Potassium chloride 40 mEq IV. 10. Sertraline. 11. Vancomycin 1 g IV q.24 hours. 12. Eliquis 5 mg b.i.d., held this morning. 13. Aspirin 81 mg daily, held since yesterday. FAMILY HISTORY: Unable to obtain. SOCIAL HISTORY: Unable to obtain. PHYSICAL EXAMINATION: VITAL SIGNS: Temperature 98.5, pulse 96, blood pressure 102/74, and 98% oxygen saturation on room air. GENERAL: Chronically ill-appearing 59-year-old woman, lying in bed comfortably, in no distress. She is morbidly obese. MENTAL: She is able to answer some simple yes or no questions about symptoms, but unable to give me any other history. SKIN: A lot of ecchymoses all over the anterior abdominal wall and upper and lower extremities. EYES: No scleral icterus. Extraocular movements intact. ENT: Mucous membranes moist. No oral lesions. LYMPH: No submandibular or supraclavicular lymphadenopathy. THYROID: Nontender to palpation. HEART: Irregular rhythm. LUNGS: Bibasilar crackles. No respiratory distress. ABDOMEN: Morbidly obese. Bowel sounds are present. Soft and nontender to palpation. EXTREMITIES: No peripheral edema. RECTAL: Few external hemorrhoidal skin tags on digital exam. There were no palpable abnormalities. No blood on withdrawal of the glove. LABORATORY STUDIES: WBC 8.2, hemoglobin 11.5, and platelets 31. INR 1.4. Sodium 146, potassium 2.7, BUN 17, creatinine 0.72, and magnesium 1.6. Hemoglobin A1c only 5.6. Lipase only 42. Total bilirubin 1.6, alkaline phosphatase 53, AST 36, and ALT 30. COVID PCR negative. Urinalysis shows greater than 50 wbc's. Urine cultures growing E. coli. Blood culture shows Staph epidermidis and corynebacterium. FOBT is pending. IMAGING STUDIES: Echocardiogram showed ejection fraction 55% to 60% with [id number] aortic stenosis and atrial fibrillation. Brain CT on three consecutive days ending 01/13/2020 showed no acute processes. ASSESSMENT AND PLAN: 1. Acute anemia, stable this morning. 2. Report of melena, seems this was a single episode last night, with normal rectal exam at the moment. 3. Vaginal bleeding, new since last night. 4. Thrombocytopenia, acute, consider secondary to sepsis ? 5. Gastric ulcer, seen on recent esophagogastroduodenoscopy 12/25/2019. There was evidently this single report of melena from earlier, but her current nurses did not witness this and I am not seeing any this afternoon. Rectal exam is normal. She has a known gastric ulcer visualized earlier this month and has not been on acid suppression, so would not surprise me if given the context of new anticoagulation with Eliquis and new thrombocytopenia, if she were having some bleeding from this. Eliquis is being appropriately held. I am going to start the patient back on IV PPI therapy. I am not sure what this Protonix allergy signified, but we will give Nexium IV and monitor closely. Monitor H and H, transfuse if needed. We are not going to plan on any upper endoscopy as this would likely be low yield. The FOBT will be meaningless in this context, regardless of the result. GI can continue to follow along. Please call anytime with questions or concerns. Job ID: [id number]
[2020-01-16 14:39] LABS: Potassium 3.8 mmol/L (3.5-5.1)
[2020-01-16] MEDS ORDERED: Iopamidol-370 76% 500 ML 1 ML ONE (15:25)
--- NOTE | 2020-01-16 15:39 | PDOC.NEUPN ---
- Subjective Encounter Date: 01/16/20 Subjective: Patient is awake and alert and no focal deficits. She does have slurred speech. - Objective Vital Signs & Weight: Vital Signs (12 hours) Temp Pulse Resp BP BP Pulse Ox 01/16/20 12:00 98.5 F 96 20 102/74 98 01/16/20 08:00 96 01/16/20 07:45 97.8 F 94 18 122/69 96 01/16/20 04:00 98.9 F 91 20 91/62 95 Weight Admit Weight 290 lb Weight 305 lb 6 oz Most Recent Monitor Data Heart Rate from ECG 99 NIBP 99/71 NIBP BP-Mean 80 Respiration from ECG 21 SpO2 97 I&O: 01/15/20 01/16/20 01/17/20 06:59 06:59 05:59 Intake Total 2740 1446 12 Output Total 640 150 Balance 2100 1296 12 Result Diagrams: 01/16/20 06:27 01/16/20 14:09 Radiology Reviewed by me: Yes EKG Reviewed by me: Yes ROS - Review of Systems Constitutional: denies: fever, chills, sweats, weakness, malaise, other Eyes: denies: pain, vision change, conjunctivae inflammation, eyelid inflammation, redness, other ENT: denies: ear pain, ear discharge, nose pain, nose discharge, nose congestion, mouth pain, mouth swelling, throat pain, throat swelling, other Respiratory: denies: cough, dry, shortness of breath, hemoptysis, SOB with excertion, pleuritic pain, sputum, wheezing, other Gastrointestinal: denies: nausea, vomiting, abdominal pain, diarrhea, constipation, melena, hematochezia, other Neurological: reports: weakness. denies: numbness, incoordination, change in speech, confusion, seizures, other - Medication Medications: Active Medications Generic Name Dose Route Start Last Admin Trade Name Freq PRN Reason Stop Dose Admin Acetaminophen 500 mg 01/12/20 07:44 01/13/20 10:37 Acetaminophen 500 Mg Tab PO 500 mg Q6HR PRN Administration Pain Acidophilus 1 tab 01/12/20 09:00 01/16/20 10:23 Lactinex Tablet PO 1 tab DAILY NAE Administration Atorvastatin Calcium 40 mg 01/12/20 21:00 01/15/20 20:45 Atorvastatin Calcium 40 Mg Tab PO 40 mg HS NAE Administration Cholecalciferol 2,000 units 01/12/20 09:00 01/16/20 10:23 Cholecalciferol 1,000 Units (25 Mcg) Tab PO 2,000 units DAILY NAE Administration Ferrous Sulfate 325 mg 01/12/20 09:00 01/16/20 10:23 Ferrous Sulfate 325 Mg Tab PO 325 mg DAILY NAE Administration Levofloxacin 750 mg/ Device 150 mls @ 100 mls/hr 01/13/20 18:00 01/15/20 17:18 IVPB 150 mls Q2D NAE Administration Nystatin 0 gm 01/12/20 09:00 01/16/20 10:25 Nystatin Powder 15 Gm Bot TOP 1 applic BID NAE Administration Ondansetron HCl 4 mg 01/11/20 20:33 01/15/20 09:31 Ondansetron Pf 4 Mg/2 Ml Vial IVP 4 mg Q6H PRN Administration Nausea/Vomiting Sertraline HCl 150 mg 01/12/20 09:00 01/16/20 10:24 Sertraline Hcl 100 Mg Tab PO 150 mg DAILY NAE Administration - Exam General Appearance: ill appearing Eye: PERRL ENT: normocephalic atraumatic Neck: supple Respiratory: rales Cardiovascular: RRR Gastrointestinal: soft Extremities: no cyanosis Skin: normal turgor Neurological: no focal deficits, no new deficit, speech deficit Musculoskeletal: normal tone PSYCH: normal affect, normal behavior Results - Labs Result Diagrams: 01/16/20 06:27 01/16/20 14:09 Lab results: WBC 8.2 thou/uL (4.8-10.8) 01/16/20 06:27 Hgb 11.5 g/dL (12.0-16.0) L 01/16/20 06:27 Hct 33.7 % (36.0-47.0) L 01/16/20 06:27 MCV 87.5 fL (78.0-98.0) 01/16/20 06:27 Plt Count 31 thou/uL (130-400) L 01/16/20 06:27 Neutrophils % 74.9 % (42.0-75.0) 01/16/20 04:13 Band Neuts % (Manual) 9 % (5-11) 01/16/20 06:27 Sodium 146 mmol/L (136-145) H 01/16/20 04:13 Potassium 3.8 mmol/L (3.5-5.1) 01/16/20 14:09 Chloride 116 mmol/L (98-107) H 01/16/20 04:13 Carbon Dioxide 19 mmol/L (22-29) L 01/16/20 04:13 BUN 17 mg/dL (9.8-20.1) 01/16/20 04:13 Creatinine 0.72 mg/dL (0.6-1.1) 01/16/20 04:13 Glucose 85 mg/dL (70-105) 01/16/20 04:13 Lactic Acid 2.4 mmol/L (0.5-2.2) H 01/11/20 19:34 Calcium 8.0 mg/dL (7.8-10.44) 01/16/20 04:13 Total Bilirubin 1.6 mg/dL (0.2-1.2) H 01/11/20 17:23 AST 36 U/L (5-34) H 01/11/20 17:23 ALT 30 U/L (8-55) 01/11/20 17:23 Alkaline Phosphatase 53 U/L (40-110) 01/11/20 17:23 CK-MB (CK-2) 1.2 ng/mL (0-6.6) 01/11/20 16:35 Troponin I 0.073 ng/mL (< 0.028) H 01/12/20 00:44 Serum Total Protein 3.0 g/dL (6.0-8.3) L 01/11/20 17:23 Albumin 3.9 g/dL (3.5-5.0) 01/11/20 17:23 Lipase 42 U/L (8-78) 01/11/20 17:23 Urine Ketones Trace mg/dL (Negative) A 01/11/20 16:49 Urine Blood 2+ (Negative) A 01/11/20 16:49 Urine Nitrite Negative (Negative) 01/11/20 16:49 Ur Leukocyte Esterase 500 Spencer/uL (Negative) A 01/11/20 16:49 Urine RBC 4-6 HPF (0-3) A 01/11/20 16:49 Urine WBC Greater than 50 HPF (0-3) A 01/11/20 16:49 Ur Squamous Epith Cells 0-3 HPF (0-3) 01/11/20 16:49 Urine Bacteria 4+ HPF (None Seen) A 01/11/20 16:49 - Radiology Interpretation CT scan - head Status: image reviewed by me, report reviewed by me Additional Comment: Negative for acute pathology PN A/P (1) Encephalopathy acute Code(s): G93.40 - ENCEPHALOPATHY, UNSPECIFIED Status: Acute (2) Acute kidney injury Code(s): N17.9 - ACUTE KIDNEY FAILURE, UNSPECIFIED Status: Acute (3) Hypokalemia Code(s): E87.6 - HYPOKALEMIA Status: Acute (4) Hyponatremia Code(s): E87.1 - HYPO-OSMOLALITY AND HYPONATREMIA Status: Acute (5) Lactic acidosis Code(s): E87.2 - ACIDOSIS Status: Acute (6) Septic shock Code(s): A41.9 - SEPSIS, UNSPECIFIED ORGANISM; R65.21 - SEVERE SEPSIS WITH SEPTIC SHOCK Status: Acute (7) Thrombocytopenia Code(s): D69.6 - THROMBOCYTOPENIA, UNSPECIFIED Status: Acute - Plan Daily Plan: PT/OT, speech therapy, DVT proph w/SCDs 59 year old consulted on 01/11 because of altered mental status. Altered mental status seems to be multifactorial due to infectious and metabolic etiologies. Mental status improved since admission. No focal deficits on exam Initial HCT and repeat HCT reviewed which did not show any evidence of acute stroke or bleed. Consider repeat HCT today. HCT becomes positive 48 hours after symptom onset. Unable to perform MRI Brain due to weight limit. Carotid dopplers completed. Results pending. 2 D Echo completed. Normal LVEF with no thrombus or PFO. Telemetry Thrombocytopenia- Consider oncology input. Continue home medications. Continue medical management per primary team. Plan discussed with the patient and the nursing staff
[2020-01-16] MEDS: Sodium Chloride 0.45% 1,000 ML IV SCH (15:52)
--- NOTE | 2020-01-16 17:17 | ULT ---
CAROTID DOPPLER: 01/16/20 PROVIDED CLINICAL HISTORY: CVA. FINDINGS: Glaser scale and color Doppler sonography with spectral analysis was performed of the extracranial kelley tid system. There is no evidence for a hemodynamically significant internal carotid artery stenosis b y peak systolic velocity radio criteria. Antegrade flow is seen in the vertebral arteries. IMPRESSION: No sonographic evidence for a hemodynamically significant internal carotid artery stenosis. POS: IQRA
[2020-01-16] MEDS: Megestrol Acetate 800 MG/20 ML UDCUP PO SCH (17:46)
--- NOTE | 2020-01-16 17:52 | CT ---
CTA OF THE HEAD WITH AND WITHOUT IV CONTRAST AND 3-D REFORMATTED IMAGING. CTA OF THE NECK WITH IV CONTRAST AND 3-D REFORMATTED IMAGING. INDICATION: 59-year-old female with history of slurred speech status post TPA COMPARISON: CT of the brain without contrast dated January 13, 2020 FINDINGS: CTA OF THE HEAD WITH AND WITHOUT CONTRAST: NONCONTRAST CT OF BRAIN: Hemorrhage: None Ischemia/Infarction: None. Midline Shift: None. Hydrocephalus: None. Skull and Extracranial Soft tissues: There is mastoid effusion involving the right mastoid air cells which is stable. CTA OF THE BRAIN: Right ICA: Patent. Right MCA: Patent. Right ANDRIY: Patent. ACOM: Patent. Left ICA: Patent. Left MCA: Patent. Left ANDRIY: Patent. PCOMs: Patent. Vertebral arteries: Patent. Basilar Artery: Patent. tree farmer: Patent. Incidentals: No abnormal enhancement CTA OF THE NECK WITH CONTRAST: Right CCA: Patent. Right ICA: Patent. Right Subclavian: Patent. Right Vertebral Artery: Patent. Left CCA: Patent. Left ICA: Patent. Left Subclavian: Patent. Left Vertebral Artery: Patent. Aerodigestive tract: Clear. Parotids/Submandibular/Thyroid glands: Normal. Lymph nodes: No pathologically enlarged lymph nodes. Lung Apices: There is airspace consolidation in the right upper lobe and right lower lobe suspicious for pneumonia. There is a [id number] right-sided pleural effusion Bones: No acute osseous abnormality. Incidentals: None. IMPRESSION: 1. No hemodynamically significant stenosis, occlusion or aneurysmal formation. 2. No acute intracranial abnormality. 3. Persistent complete right mastoid effusion. 4. Right upper lobe and right lower lobe pneumonia with parapneumonic effusion
[2020-01-16 18:17] LABS: Fibrinogen 345 mg/dL (253-463)
[2020-01-16 18:18] LABS: D-Dimer Test 0.33 *mcg/mL (0.27-0.43)
[2020-01-16 18:22] LABS: FSP-Qualitative Normal (Normal)
[2020-01-16 18:26] LABS: Potassium 3.6 mmol/L (3.5-5.1)
[2020-01-16] MEDS: Pantoprazole 40 MG VIAL IVP SCH (20:32)
[2020-01-16] MEDS: Atorvastatin Calcium 40 MG TAB PO SCH ×2 (20:38)
[2020-01-17 07:46] LABS: Hemoglobin 11.6 g/dL (12.0-16.0); Mean Corpuscular HGB CONC 34.3 g/dL (32.0-36.0); Mean Corpuscular Hemoglobin 30.1 pg (27.0-31.0); Mean Platelet Volume 9.7 fL (7.4-10.4); Platelet Count 23 thou/uL (130-400); RBC Distribution Width 12.5 % (11.5-14.5); Red Blood Cell (RBC) Count 3.86 mill/uL (4.20-5.40); White Blood Cell (WBC) Count 10.7 thou/uL (4.8-10.8)
[2020-01-17] MEDS: Sodium Chloride 0.45% 1,000 ML IV SCH (08:00)
[2020-01-17 08:25] LABS: #Eosinphils 0.1 thou/uL (0.0-0.7); #Lymphocytes 1.6 thou/uL (1.20-3.40); #Monocytes 0.9 thou/uL (0.11-0.59); #Neutrophils 8.1 thou/uL (1.40-6.50); %Basophils 0.2 % (0.0-1.0); %Eosinophils 0.7 % (0.0-10.0); %Lymphocytes 14.9 % (21.0-51.0); %Monocytes 8.7 % (0.0-10.0); %Neutrophils 75.5 % (42.0-75.0)
--- NOTE | 2020-01-17 10:33 | PRG ---
DATE OF SERVICE: 01/17/2020 SUBJECTIVE: Ms. Calvo is not having any abdominal pain. She has not been having diarrhea. She has remained hemodynamically stable with stable hemoglobin. Platelets remain low at 23. Speech remains a bit slurred, but CT head yesterday was again negative for evidence of stroke. OBJECTIVE: VITAL SIGNS: Temperature 99.3, pulse 98, blood pressure 92/57, and 97% oxygen saturation on 3 L nasal cannula. GENERAL: No acute distress, lying in bed comfortably. HEART: Regular rate and rhythm. LUNGS: Clear to auscultation bilaterally. ABDOMEN: Nontender to palpation. EXTREMITIES: No peripheral edema. LABORATORY STUDIES: Hemoglobin stable at 11.6, platelets low at 23, and WBC 10.7. INR 1.4. Potassium 3.6. ASSESSMENT AND PLAN: 1. Acute anemia, stable for the past 2 days. 2. Report of melena, this was a single episode, with no blood on rectal exam. 3. Vaginal bleeding, new a couple days ago. 4. Thrombocytopenia, acute, unknown etiology. 5. Gastric ulcer, seen on recent esophagogastroduodenoscopy on 12/25/2019. I am not seeing any evidence of significant gastrointestinal bleeding. With such significant thrombocytopenia, is of course possible that she is having some mild oozing from her gastric ulcer, but no indication to repeat esophagogastroduodenoscopy at this time. She had not been on any proton pump inhibitor since diagnosis of the ulcer, probably because pantoprazole was on her allergy list for some reason. But, there is no knowledge on the part of the patient or caregiver as to why that was on the allergy list. She has tolerated a couple of doses of pantoprazole since I ordered it yesterday. I would advise continuing pantoprazole 40 mg IV twice daily while hospitalized, transitioning to p.o. upon hospital discharge, and continuing it for 2 months. It should be taken off her allergy list. GI will sign off, but please call back anytime with questions or concerns. Job ID: [id number] MTDD
[2020-01-17] MEDS: Megestrol Acetate 800 MG/20 ML UDCUP PO SCH ×3 (10:38→17:38)
[2020-01-17] MEDS: Ferrous Sulfate 325 MG TAB PO SCH (10:43)
[2020-01-17] MEDS: Lactinex Tablet PO SCH ×2 (10:43→11:40)
[2020-01-17] MEDS: Cholecalciferol 1,000 UNITS (25 MCG) TAB PO SCH ×2 (10:43→11:40)
[2020-01-17] MEDS: Pantoprazole 40 MG VIAL IVP SCH ×2 (10:44→20:58)
[2020-01-17 11:20] LABS: Hemoglobin 10.8 g/dL (12.0-16.0); Mean Corpuscular HGB CONC 35.3 g/dL (32.0-36.0); Mean Corpuscular Hemoglobin 30.8 pg (27.0-31.0); Mean Corpuscular Volume 87.3 fL (78.0-98.0); Red Blood Cell (RBC) Count 3.51 mill/uL (4.20-5.40)
[2020-01-17 11:46] LABS: #Lymphocytes 1.4 thou/uL (1.20-3.40); #Monocytes 0.9 thou/uL (0.11-0.59); #Neutrophils 8.1 thou/uL (1.40-6.50); %Basophils 0.3 % (0.0-1.0); %Eosinophils 0.4 % (0.0-10.0); %Lymphocytes 13.2 % (21.0-51.0); %Monocytes 8.4 % (0.0-10.0); %Neutrophils 77.7 % (42.0-75.0); Mean Platelet Volume 9.4 fL (7.4-10.4); Platelet Count 25 thou/uL (130-400); Platelet Morphology Comment Appears Decreased; RBC Distribution Width 12.5 % (11.5-14.5)
[2020-01-17 11:48] LABS: White Blood Cell (WBC) Count 10.5 thou/uL (4.8-10.8)
--- NOTE | 2020-01-17 12:20 | PDOC.NEUPN ---
- Subjective Encounter Date: 01/17/20 Subjective: Patient continues to have slurred speech but no other focal deficit. She is alert and oriented to person and place. Brother at bedside. - Objective Vital Signs & Weight: Vital Signs (12 hours) Temp Pulse Resp BP BP Pulse Ox 01/17/20 11:00 99.0 F 94 18 96/65 96 01/17/20 07:21 99.3 F 98 18 92/57 L 97 01/17/20 04:00 99.0 F 91 22 H 103/71 97 Weight Admit Weight 290 lb Weight 315 lb Most Recent Monitor Data Heart Rate from ECG 99 NIBP 99/71 NIBP BP-Mean 80 Respiration from ECG 21 SpO2 97 I&O: 01/16/20 01/17/20 01/18/20 07:59 06:59 06:59 Intake Total Output Total Balance Result Diagrams: 01/17/20 10:50 01/16/20 17:59 Radiology Reviewed by me: Yes EKG Reviewed by me: Yes ROS - Review of Systems Genitourinary: denies: dysuria, frequency, incontinence, hematuria, retention, other Musculoskeletal: denies: neck pain, shoulder pain, arm pain, back pain, hand pain, leg pain, foot pain, other Neurological: reports: weakness All Systems: All other systems reviewed; all pertinent +/- noted in HPI/Subj - Medication Medications: Active Medications Generic Name Dose Route Start Last Admin Trade Name Freq PRN Reason Stop Dose Admin Acetaminophen 500 mg 01/12/20 07:44 01/13/20 10:37 Acetaminophen 500 Mg Tab PO 500 mg Q6HR PRN Administration Pain Acidophilus 1 tab 01/12/20 09:00 01/17/20 11:40 Lactinex Tablet PO Not Given DAILY NAE Atorvastatin Calcium 40 mg 01/12/20 21:00 01/16/20 20:38 Atorvastatin Calcium 40 Mg Tab PO Not Given HS NAE Cholecalciferol 2,000 units 01/12/20 09:00 01/17/20 11:40 Cholecalciferol 1,000 Units (25 Mcg) Tab PO Not Given DAILY NAE Ferrous Sulfate 325 mg 01/12/20 09:00 01/17/20 10:43 Ferrous Sulfate 325 Mg Tab PO 325 mg DAILY NAE Administration Levofloxacin 750 mg/ Device 150 mls @ 100 mls/hr 01/13/20 18:00 01/15/20 17:18 IVPB 150 mls Q2D NAE Administration Sodium Chloride 1,000 mls @ 50 mls/hr 01/16/20 13:54 01/16/20 15:52 1/2 Normal Saline IV 1,000 mls .Q20H NAE Administration Megestrol Acetate 400 mg 01/16/20 17:00 01/17/20 10:38 Megestrol Acetate 800 Mg/20 Ml Udcup PO Not Given AC NAE Nystatin 0 gm 01/12/20 09:00 01/16/20 20:39 Nystatin Powder 15 Gm Bot TOP 1 applic BID NAE Administration Ondansetron HCl 4 mg 01/11/20 20:33 01/15/20 09:31 Ondansetron Pf 4 Mg/2 Ml Vial IVP 4 mg Q6H PRN Administration Nausea/Vomiting Pantoprazole Sodium 40 mg 01/16/20 21:00 01/17/20 10:44 Pantoprazole 40 Mg Vial IVP 40 mg BID ANE Administration Sertraline HCl 150 mg 01/12/20 09:00 01/17/20 10:43 Sertraline Hcl 100 Mg Tab PO 150 mg DAILY NAE Administration - Exam General Appearance: awake alert Eye: PERRL ENT: normocephalic atraumatic Neck: supple Respiratory: CTAB Cardiovascular: RRR Gastrointestinal: soft Extremities: no cyanosis Skin: normal turgor Neurological: no new deficit Musculoskeletal: generalized weakness PSYCH: normal affect, normal behavior, oriented to person, oriented to place Results - Labs Result Diagrams: 01/17/20 10:50 01/16/20 17:59 Lab results: WBC 10.5 thou/uL (4.8-10.8) 01/17/20 10:50 Hgb 10.8 g/dL (12.0-16.0) L 01/17/20 10:50 Hct 30.6 % (36.0-47.0) L 01/17/20 10:50 MCV 87.3 fL (78.0-98.0) 01/17/20 10:50 Plt Count 25 thou/uL (130-400) L* 01/17/20 10:50 Neutrophils % 77.7 % (42.0-75.0) H 01/17/20 10:50 Band Neuts % (Manual) 9 % (5-11) 01/16/20 06:27 Sodium 146 mmol/L (136-145) H 01/16/20 04:13 Potassium 3.6 mmol/L (3.5-5.1) 01/16/20 17:59 Chloride 116 mmol/L (98-107) H 01/16/20 04:13 Carbon Dioxide 19 mmol/L (22-29) L 01/16/20 04:13 BUN 17 mg/dL (9.8-20.1) 01/16/20 04:13 Creatinine 0.72 mg/dL (0.6-1.1) 01/16/20 04:13 Glucose 85 mg/dL (70-105) 01/16/20 04:13 Lactic Acid 2.4 mmol/L (0.5-2.2) H 01/11/20 19:34 Calcium 8.0 mg/dL (7.8-10.44) 01/16/20 04:13 Total Bilirubin 1.6 mg/dL (0.2-1.2) H 01/11/20 17:23 AST 36 U/L (5-34) H 01/11/20 17:23 ALT 30 U/L (8-55) 01/11/20 17:23 Alkaline Phosphatase 53 U/L (40-110) 01/11/20 17:23 CK-MB (CK-2) 1.2 ng/mL (0-6.6) 01/11/20 16:35 Troponin I 0.073 ng/mL (< 0.028) H 01/12/20 00:44 Serum Total Protein 3.0 g/dL (6.0-8.3) L 01/11/20 17:23 Albumin 3.9 g/dL (3.5-5.0) 01/11/20 17:23 Lipase 42 U/L (8-78) 01/11/20 17:23 Urine Ketones Trace mg/dL (Negative) A 01/11/20 16:49 Urine Blood 2+ (Negative) A 01/11/20 16:49 Urine Nitrite Negative (Negative) 01/11/20 16:49 Ur Leukocyte Esterase 500 Spencer/uL (Negative) A 01/11/20 16:49 Urine RBC 4-6 HPF (0-3) A 01/11/20 16:49 Urine WBC Greater than 50 HPF (0-3) A 01/11/20 16:49 Ur Squamous Epith Cells 0-3 HPF (0-3) 01/11/20 16:49 Urine Bacteria 4+ HPF (None Seen) A 01/11/20 16:49 - Radiology Interpretation CT scan - head Status: image reviewed by me, report reviewed by me Additional Comment: Head CT reviewed which was negative for acute intracranial pathology PN A/P (1) Encephalopathy acute Code(s): G93.40 - ENCEPHALOPATHY, UNSPECIFIED Status: Acute (2) Acute kidney injury Code(s): N17.9 - ACUTE KIDNEY FAILURE, UNSPECIFIED Status: Acute (3) Hypokalemia Code(s): E87.6 - HYPOKALEMIA Status: Acute (4) Hyponatremia Code(s): E87.1 - HYPO-OSMOLALITY AND HYPONATREMIA Status: Acute (5) Lactic acidosis Code(s): E87.2 - ACIDOSIS Status: Acute (6) Septic shock Code(s): A41.9 - SEPSIS, UNSPECIFIED ORGANISM; R65.21 - SEVERE SEPSIS WITH SEPTIC SHOCK Status: Acute (7) Thrombocytopenia Code(s): D69.6 - THROMBOCYTOPENIA, UNSPECIFIED Status: Acute - Plan Daily Plan: plan discussed w/ family, PT/OT, speech therapy, DVT proph w/SCDs 59 year old consulted on 01/11 because of altered mental status. Altered mental status seems to be multifactorial due to infectious and metabolic etiologies. Mental status improved since admission. No focal deficits on exam. She continues to have slurred speech. Brother concerned about stroke Initial HCT and repeat HCT reviewed which did not show any evidence of acute stroke or bleed. Unable to perform MRI Brain due to weight limit. Had a long discussion with the brother regarding the option of doing an MRI brain at the [facility] which is 500 pounds weight limit. He was made aware that she may have a small tiny lacunar brainstem infarct which was difficult to capture on head CT. However, it will not change the management. Patient was supposed to be on aspirin for secondary stroke prevention which is on hold secondary to severe thrombocytopenia at this time. Carotid dopplers did not reveal hemodynamically significant stenosis. CTA of the head and neck did not reveal hemodynamically significant stenosis 2 D Echo completed. Normal LVEF with no thrombus or PFO. Telemetry Thrombocytopenia- Consider oncology input. Strict control of blood pressure and blood glucose. Continue home medications. Continue medical management per primary team. Plan discussed with the patient , brother at bedside and the nursing staff
[2020-01-17] MEDS: Nystatin Powder 15 GM BOT TOP SCH ×2 (12:33→21:10)
--- NOTE | 2020-01-17 13:57 | PDOC.HOSPP ---
- Subjective Encounter Date: 01/17/20 Encounter Time: 08:30 Subjective: Patient seen this morning she does not have any skin changes suggestive of petechial rash for ongoing platelet drop. GI note reviewed. Her hemoglobin 10.8. Platelets consistently around 25,000. Fibrin and fibrin split products are in the normal range D-dimer 0.33. Consulted hematology yesterday and it appears they want to do some platelet transfusion today. GI signed off. I talked to the pharmacist -will discontinue the pantoprazole from her allergy list. - Objective Vital Signs & Weight: Vital Signs (12 hours) Temp Pulse Resp BP BP Pulse Ox 01/17/20 11:00 99.0 F 94 18 96/65 96 01/17/20 07:21 99.3 F 98 18 92/57 L 97 01/17/20 04:00 99.0 F 91 22 H 103/71 97 Weight Admit Weight 290 lb Weight 315 lb Most Recent Monitor Data Heart Rate from ECG 99 NIBP 99/71 NIBP BP-Mean 80 Respiration from ECG 21 SpO2 97 I&O: 01/16/20 01/17/20 01/18/20 07:59 06:59 06:59 Intake Total Output Total Balance Result Diagrams: 01/17/20 10:50 01/16/20 17:59 Hospitalist ROS - Medication Medications: Active Medications Generic Name Dose Route Start Last Admin Trade Name Freq PRN Reason Stop Dose Admin Acetaminophen 500 mg 01/12/20 07:44 01/13/20 10:37 Acetaminophen 500 Mg Tab PO 500 mg Q6HR PRN Administration Pain Acidophilus 1 tab 01/12/20 09:00 01/17/20 11:40 Lactinex Tablet PO Not Given DAILY NAE Atorvastatin Calcium 40 mg 01/12/20 21:00 01/16/20 20:38 Atorvastatin Calcium 40 Mg Tab PO Not Given HS NAE Cholecalciferol 2,000 units 01/12/20 09:00 01/17/20 11:40 Cholecalciferol 1,000 Units (25 Mcg) Tab PO Not Given DAILY NAE Ferrous Sulfate 325 mg 01/12/20 09:00 01/17/20 10:43 Ferrous Sulfate 325 Mg Tab PO 325 mg DAILY NAE Administration Levofloxacin 750 mg/ Device 150 mls @ 100 mls/hr 01/13/20 18:00 01/15/20 17:18 IVPB 150 mls Q2D NAE Administration Sodium Chloride 1,000 mls @ 50 mls/hr 01/16/20 13:54 01/17/20 08:00 1/2 Normal Saline IV 1,000 mls .Q20H NAE Administration Megestrol Acetate 400 mg 01/16/20 17:00 01/17/20 12:31 Megestrol Acetate 800 Mg/20 Ml Udcup PO 400 mg AC NAE Administration Nystatin 0 gm 01/12/20 09:00 01/17/20 12:33 Nystatin Powder 15 Gm Bot TOP 1 applic BID NAE Administration Ondansetron HCl 4 mg 01/11/20 20:33 01/15/20 09:31 Ondansetron Pf 4 Mg/2 Ml Vial IVP 4 mg Q6H PRN Administration Nausea/Vomiting Pantoprazole Sodium 40 mg 01/16/20 21:00 01/17/20 10:44 Pantoprazole 40 Mg Vial IVP 40 mg BID NAE Administration Sertraline HCl 150 mg 01/12/20 09:00 01/17/20 10:43 Sertraline Hcl 100 Mg Tab PO 150 mg DAILY NAE Administration - Exam General Appearance: NAD, awake alert Eye: PERRL ENT: normocephalic atraumatic Neck: supple Heart: RRR Respiratory: CTAB, normal chest expansion Gastrointestinal: soft, normal bowel sounds Neurological: no focal deficits Psychiatric: A&O x 3 Hosp A/P (1) Septic shock Code(s): A41.9 - SEPSIS, UNSPECIFIED ORGANISM; R65.21 - SEVERE SEPSIS WITH SEPTIC SHOCK Status: Acute (2) Type 2 myocardial infarction Code(s): I21.A1 - MYOCARDIAL INFARCTION TYPE 2 Status: Acute (3) Encephalopathy acute Code(s): G93.40 - ENCEPHALOPATHY, UNSPECIFIED Status: Acute (4) Acute kidney injury Code(s): N17.9 - ACUTE KIDNEY FAILURE, UNSPECIFIED Status: Acute (5) Hyponatremia Code(s): E87.1 - HYPO-OSMOLALITY AND HYPONATREMIA Status: Acute (6) Hypokalemia Code(s): E87.6 - HYPOKALEMIA Status: Acute (7) Thrombocytopenia Code(s): D69.6 - THROMBOCYTOPENIA, UNSPECIFIED Status: Acute (8) New onset atrial fibrillation Code(s): I48.91 - UNSPECIFIED ATRIAL FIBRILLATION Status: Acute (9) Morbid obesity with BMI of 50.0-59.9, adult Code(s): E66.01 - MORBID (SEVERE) OBESITY DUE TO EXCESS CALORIES; Z68.43 - BODY MASS INDEX [BMI] 50.0-59.9, ADULT Status: Chronic (10) Physical deconditioning Code(s): R53.81 - OTHER MALAISE Status: Chronic (11) Anxiety and depression Code(s): F41.9 - ANXIETY DISORDER, UNSPECIFIED; F32.9 - MAJOR DEPRESSIVE DISORDER, SINGLE EPISODE, UNSPECIFIED Status: Chronic (12) UTI (urinary tract infection) Status: Acute Qualifiers: Urinary tract infection type: acute cystitis Hematuria presence: without hematuria Qualified Code(s): N30.00 - Acute cystitis without hematuria (13) Lactic acidosis Code(s): E87.2 - ACIDOSIS Status: Acute (14) Dyslipidemia Code(s): E78.5 - HYPERLIPIDEMIA, UNSPECIFIED Status: Chronic (15) GERD (gastroesophageal reflux disease) Code(s): K21.9 - GASTRO-ESOPHAGEAL REFLUX DISEASE WITHOUT ESOPHAGITIS Status: Chronic Qualifiers: Esophagitis presence: without esophagitis Qualified Code(s): K21.9 - Gastro-esophageal reflux disease without esophagitis - Plan Septic shock resolved. Patient is off vasopressors. Blood culture positive for staphylococcus epidermidis, gram positive sonny, staphylococcus capitis and presumptive corynebacterium sp. Currently on vancomycin. -----> will discontinue that A. fib--probably related to acute stress of septic shock Echocardiogram--- shows normal EF. No valvular vegetations or other abnormalities noted. -Given her history of coronary artery disease obesity as well as diabetic and limited ambulation she is at high risk for DVT and it is appropriate to start her on anticoagulant even though she is only 59-year-old. -Eliquis 5 mg twice a day.The patient's heart rate is controlled. Hypokalemia-potassium chloride 40 mEq IV ordered Poor p.o. intake -Will order appetite stimulant Megace -Ensure with each meals. CVA with significant dysarthria -EEG showed diffuse slowing with no specific findings related to seizures. - Echocardiogram--- shows normal EF. No valvular vegetations or other abnormalities noted. -Repeat CT done on did not show any significant abnormalities. And no mass or bleed. Mastoid sinusitis. -No MRI tried twice due to her obesity they are not able to do it. Even though initial CT did not show any abnormality given the clinical impression of significant dysarthria she will likely have cerebellar stroke. -She has no significant sensory impairment facial droopiness. Her strength is quite impaired however that probably due to her overall debilitation rather than focus weakness due to stroke. -Since this is a cerebellar stroke she does not require anticoagulation technically, however as explained before, she would benefit with daily baby aspirin and/or AC for secondary stroke prevnetion -A1c 5.6 TSH in the normal range. B12 also in the normal range. Hyperlipidemia - her Ldl is 126 -She is on Lipitor - Morbid obese Debilitation due to obesity Physical Deconditioning-generalized weakness. ----Physical therapy consulted as she needs to be mobilized. Students note has been reviewed with the student and necessary changes has been made at today's progress note. 1st Severe thrombocytopenia - does not have any skin changes suggestive of petechial rash for ongoing platelet drop. GI note reviewed. Her hemoglobin 10.8. Platelets consistently around 25,000. Fibrin and fibrin split products are in the normal range D-dimer 0.33. Consulted hematology yesterday and it appears they want to do platelet transfusion today. She is not getting any antiplatelet and anticoagulant even though her speech strongly suggestive of cerebellar stroke. -Difficult scenario we cannot start her on either 1 of that given her significant thrombocytopenia requiring platelet transfusion. CT angiogram no significant stenosis service carotid Doppler. Gain we cannot get the MRI due to her obesity. -Also MRI may not have much impact on the current management. Neurology note reviewed. Patient's mentation at baseline. No PPI allergy -will remove that from the allergy list and continue with the PPI IV twice a day and transition to p.o. twice a day at least for a month and then once daily. Neurology on board GI signed off
--- NOTE | 2020-01-17 15:36 | CON ---
DATE OF CONSULTATION: REASON FOR CONSULTATION: Thrombocytopenia. HISTORY OF PRESENT ILLNESS: Ms. Calvo is a 59-year-old morbidly obese female, who presented to the emergency room for altered mental status. She is a resident of [facility], where she is undergoing rehab after she was discharged here for gastritis. The patient is morbidly obese and nonambulatory. She was undergoing workup for CVA. Her brain CT was negative. Unfortunately, due to body habitus does not fit into our MRI here. Over the course of her hospitalization, her platelet count has dropped on admission on January 10, it was 74,000, today it is 23,000. She had an acute drop on the 3rd day of admit on the day 5 of admission. The patient's urine culture showed E coli bacteremia. She has been on antibiotics since admission. She has also been given therapeutic Lovenox and a dose of Eliquis for her CVA. She had a stool guaiac, which was positive for blood. She apparently has been having vaginal bleeding as well. Overnight, the patient has had a change in her mental status with slight decline in her vision and speech. She was seen at bedside with her brother present. PAST MEDICAL HISTORY: 1. Atrial fibrillation. 2. Morbid obesity. 3. Hypertension. 4. GERD. 5. Urinary tract infection. 6. Coronary artery disease. 7. Diabetes. 8. History of gastric ulcer. PAST SURGICAL HISTORY: None. ALLERGIES: TO CEPHALEXIN, CLINDAMYCIN, DOXYCYCLINE, OXYCODONE, AND PANTOPRAZOLE. CURRENT MEDICATIONS: 1. Lipitor. 2. D3. 3. Iron. 4. Levaquin. 5. Protonix. FAMILY HISTORY: Noncontributory. SOCIAL HISTORY: Currently is living at [facility]. REVIEW OF SYSTEMS: The patient denies any complaints at this time. PHYSICAL EXAMINATION: VITAL SIGNS: Temperature is 99.3, pulse is 98, respiratory rate 18, blood pressure is 92/57, and she is 97% on 3 L. GENERAL: This is a morbidly obese female, in no acute distress. HEENT: Normocephalic, atraumatic. Pupils are reactive. NECK: Supple. CV: Regular rate and rhythm. LUNGS: Coarse anterior. ABDOMEN: Obese. Bowel sounds are positive. EXTREMITIES: No clubbing or cyanosis. SKIN: No rash. HEMATOLOGICAL: She has no petechiae, but scattered bruising. NEUROLOGICAL: She has slurred speech. PERTINENT LABORATORY DATA AND X-RAYS: Current WBCs 10.7, hemoglobin 11.6, hematocrit 34.0, platelet count 23,000, she has 75% neutrophils, 15% lymphocytes. She had slight large platelets on admission. PT 17.9, INR is 1.4, and PTT is 35.8. DIC panel is normal. Sodium 146, potassium 3.6, chloride 116, CO2 is 19, BUN is 17, creatinine 0.72, and calcium 8, bilirubin is 1.6, AST is 36, ALT is 30, alkaline phosphatase is 53, serum total protein is 3, albumin 2.9, and lipase 42. B12 is 531. ASSESSMENT: 1. Acute thrombocytopenia in the setting of sepsis. 2. Probable cerebrovascular accident. 3. Urinary tract infection with Escherichia coli. 4. Melena. DISCUSSION: The patient's thrombocytopenia is likely due to sepsis. The patient did receive Lovenox with a subsequent drop in her platelets, however, time frame appears to be less than 5 days. She did not receive heparin at last admission in November. This does not appear to be HIT. She has large platelets in her differential on admission. We will rule out platelet clumping by checking on a non-EDTA tube. Peripheral smear is pending. She does have evidence of bleeding in her mouth, and reported vaginal bleeding. We will transfuse platelets, assuming she is not clumping. Further workup for her possible CVA. We will monitor her CBC closely. Brother of patient was updated. Case will be discussed with Dr. Aggarwal. Thank you for the consult. Job ID: [id number] [facility]
[2020-01-17] MEDS: Atorvastatin Calcium 40 MG TAB PO SCH (20:58)
[2020-01-18 06:09] LABS: Hemoglobin 10.2 g/dL (12.0-16.0); Mean Corpuscular HGB CONC 34.8 g/dL (32.0-36.0); Mean Corpuscular Hemoglobin 29.9 pg (27.0-31.0); Mean Corpuscular Volume 86.1 fL (78.0-98.0); Platelet Count 50 thou/uL (130-400); RBC Distribution Width 12.4 % (11.5-14.5); Red Blood Cell (RBC) Count 3.42 mill/uL (4.20-5.40)
[2020-01-18 06:25] LABS: Anion Gap 14 mmol/L (10-20); BUN (Urea Nitrogen) 15 mg/dL (9.8-20.1); Calc. Creatinine Clearance 197 mL/min (70-130); Calcium 8.5 mg/dL (7.8-10.44); Carbon Dioxide 16 mmol/L (22-29); Chloride 117 mmol/L (98-107); Estimated GFR-MDRD 85; Glucose 87 mg/dL (70-105); Potassium 3.2 mmol/L (3.5-5.1); Sodium 144 mmol/L (136-145)
[2020-01-18 06:34] LABS: Band 3 % (5-11); Lymphocytes 16 % (21-51); MDiff Complete? YES; Metamyelocyte 3 % (0-0); Monocytes 9 % (0-10); Neutrophil 69 % (42-75)
[2020-01-18] MEDS: Sodium Chloride 0.45% 1,000 ML IV SCH (06:52)
[2020-01-18] MEDS ORDERED: Potassium Chloride 20 MEQ TAB PO SCH (07:30)
[2020-01-18] MEDS: Megestrol Acetate 800 MG/20 ML UDCUP PO SCH ×3 (08:25→17:46)
[2020-01-18] MEDS: Lactinex Tablet PO SCH (08:25)
[2020-01-18] MEDS: Cholecalciferol 1,000 UNITS (25 MCG) TAB PO SCH (08:27)
[2020-01-18] MEDS: Nystatin Powder 15 GM BOT TOP SCH ×2 (08:27→20:38)
[2020-01-18] MEDS: Ferrous Sulfate 325 MG TAB PO SCH (08:27)
[2020-01-18] MEDS: Pantoprazole 40 MG VIAL IVP SCH ×2 (08:30→20:38)
--- NOTE | 2020-01-18 09:42 | PDOC.HOSPP ---
- Subjective Encounter Date: 01/18/20 Encounter Time: 08:50 Subjective: Pt. is in bed. She says she is feeling better today. Speech is improved, but is still slightly slurred. Thrombocytopenia has improved after platelet transfusion. Nurse states patient was a little combative this morning and didn't want to take her medications. She took half of her potassium tablet. She was still having some vaginal bleeding today. She had some extremities shakiness and it is probably related to her anxiety. Her caregiver is at bedside. - Objective Vital Signs & Weight: Vital Signs (12 hours) Temp Pulse Resp BP Pulse Ox 01/18/20 07:12 98.5 F 102 H 22 H 93/66 95 Weight Admit Weight 290 lb Weight 315 lb Most Recent Monitor Data Heart Rate from ECG 99 NIBP 99/71 NIBP BP-Mean 80 Respiration from ECG 21 SpO2 97 I&O: 01/17/20 01/18/20 01/19/20 06:59 06:59 06:59 Intake Total 250 Output Total Balance 250 Result Diagrams: 01/18/20 05:40 01/18/20 05:40 Hospitalist ROS - Medication Medications: Active Medications Generic Name Dose Route Start Last Admin Trade Name Freq PRN Reason Stop Dose Admin Acetaminophen 500 mg 01/12/20 07:44 01/13/20 10:37 Acetaminophen 500 Mg Tab PO 500 mg Q6HR PRN Administration Pain Acidophilus 1 tab 01/12/20 09:00 01/18/20 08:25 Lactinex Tablet PO Not Given DAILY NAE Atorvastatin Calcium 40 mg 01/12/20 21:00 01/17/20 20:58 Atorvastatin Calcium 40 Mg Tab PO 40 mg HS NAE Administration Cholecalciferol 2,000 units 01/12/20 09:00 01/18/20 08:27 Cholecalciferol 1,000 Units (25 Mcg) Tab PO Not Given DAILY NAE Ferrous Sulfate 325 mg 01/12/20 09:00 01/18/20 08:27 Ferrous Sulfate 325 Mg Tab PO Not Given DAILY NAE Levofloxacin 750 mg/ Device 150 mls @ 100 mls/hr 01/13/20 18:00 01/17/20 17:38 IVPB 150 mls Q2D NAE Administration Sodium Chloride 1,000 mls @ 50 mls/hr 01/16/20 13:54 01/18/20 06:52 1/2 Normal Saline IV 1,000 mls .Q20H NAE Administration Megestrol Acetate 400 mg 01/16/20 17:00 01/18/20 08:25 Megestrol Acetate 800 Mg/20 Ml Udcup PO Not Given AC NAE Nystatin 0 gm 01/12/20 09:00 01/18/20 08:27 Nystatin Powder 15 Gm Bot TOP 1 applic BID NAE Administration Ondansetron HCl 4 mg 01/11/20 20:33 01/15/20 09:31 Ondansetron Pf 4 Mg/2 Ml Vial IVP 4 mg Q6H PRN Administration Nausea/Vomiting Pantoprazole Sodium 40 mg 01/16/20 21:00 01/18/20 08:30 Pantoprazole 40 Mg Vial IVP 40 mg BID NAE Administration Potassium Chloride 40 meq 01/18/20 07:30 01/18/20 08:26 Potassium Chloride 20 Meq Tab PO 01/18/20 11:00 40 meq NOW NAE Administration Sertraline HCl 150 mg 01/12/20 09:00 01/18/20 08:27 Sertraline Hcl 100 Mg Tab PO Not Given DAILY NAE Sodium Chloride 10 ml 01/18/20 09:00 01/18/20 09:35 Flush - Normal Saline 10 Ml Syringe IVF Not Given Q12HR NAE - Exam General Appearance: NAD, awake alert, ill appearing Heart: RRR, no murmur, no gallops, no rubs, normal peripheral pulses Respiratory: CTAB, no wheezes, no rales, no ronchi, normal chest expansion, no tachypnea Gastrointestinal: soft, non-tender, non-distended, normal bowel sounds, no palpable masses, no hepatomegaly, no splenomegaly Extremities: no cyanosis, no clubbing, no edema Skin - other findings: rash under breasts Psychiatric: normal affect, normal behavior, A&O x 3 Hosp A/P (1) Septic shock Code(s): A41.9 - SEPSIS, UNSPECIFIED ORGANISM; R65.21 - SEVERE SEPSIS WITH SEPTIC SHOCK Status: Acute (2) Type 2 myocardial infarction Code(s): I21.A1 - MYOCARDIAL INFARCTION TYPE 2 Status: Acute (3) Encephalopathy acute Code(s): G93.40 - ENCEPHALOPATHY, UNSPECIFIED Status: Acute (4) Acute kidney injury Code(s): N17.9 - ACUTE KIDNEY FAILURE, UNSPECIFIED Status: Acute (5) Hyponatremia Code(s): E87.1 - HYPO-OSMOLALITY AND HYPONATREMIA Status: Acute (6) Hypokalemia Code(s): E87.6 - HYPOKALEMIA Status: Acute (7) Thrombocytopenia Code(s): D69.6 - THROMBOCYTOPENIA, UNSPECIFIED Status: Acute (8) New onset atrial fibrillation Code(s): I48.91 - UNSPECIFIED ATRIAL FIBRILLATION Status: Acute (9) Morbid obesity with BMI of 50.0-59.9, adult Code(s): E66.01 - MORBID (SEVERE) OBESITY DUE TO EXCESS CALORIES; Z68.43 - BODY MASS INDEX [BMI] 50.0-59.9, ADULT Status: Chronic (10) Physical deconditioning Code(s): R53.81 - OTHER MALAISE Status: Chronic (11) Anxiety and depression Code(s): F41.9 - ANXIETY DISORDER, UNSPECIFIED; F32.9 - MAJOR DEPRESSIVE DISORDER, SINGLE EPISODE, UNSPECIFIED Status: Chronic (12) UTI (urinary tract infection) Status: Acute Qualifiers: Urinary tract infection type: acute cystitis Hematuria presence: without hematuria Qualified Code(s): N30.00 - Acute cystitis without hematuria (13) Lactic acidosis Code(s): E87.2 - ACIDOSIS Status: Acute (14) Dyslipidemia Code(s): E78.5 - HYPERLIPIDEMIA, UNSPECIFIED Status: Chronic (15) GERD (gastroesophageal reflux disease) Code(s): K21.9 - GASTRO-ESOPHAGEAL REFLUX DISEASE WITHOUT ESOPHAGITIS Status: Chronic Qualifiers: Esophagitis presence: without esophagitis Qualified Code(s): K21.9 - Gastro-esophageal reflux disease without esophagitis - Plan Septic shock resolved. Patient is off vasopressors. Blood culture positive for staphylococcus epidermidis, gram positive sonny, staphylococcus capitis and presumptive corynebacterium sp. Currently on vancomycin. -----> will discontinue that A. fib--probably related to acute stress of septic shock Echocardiogram--- shows normal EF. No valvular vegetations or other abnormalities noted. -Given her history of coronary artery disease obesity as well as diabetic and limited ambulation she is at high risk for DVT and it is appropriate to start her on anticoagulant even though she is only 59-year-old. -Eliquis 5 mg twice a day.The patient's heart rate is controlled. Hypokalemia-potassium chloride 40 mEq IV ordered Poor p.o. intake -Will order appetite stimulant Megace -Ensure with each meals. CVA with significant dysarthria -EEG showed diffuse slowing with no specific findings related to seizures. - Echocardiogram--- shows normal EF. No valvular vegetations or other abnormalities noted. -Repeat CT done on did not show any significant abnormalities. And no mass or bleed. Mastoid sinusitis. -No MRI tried twice due to her obesity they are not able to do it. Even though initial CT did not show any abnormality given the clinical impressi on of significant dysarthria she will likely have cerebellar stroke. -She has no significant sensory impairment facial droopiness. Her strength is quite impaired however that probably due to her overall debilitation rather than focus weakness due to stroke. -Since this is a cerebellar stroke she does not require anticoagulation technically, however as explained before, she would benefit with daily baby aspirin and/or AC for secondary stroke prevnetion -A1c 5.6 TSH in the normal range. B12 also in the normal range. Hyperlipidemia - her Ldl is 126 -She is on Lipitor - Morbid obese Debilitation due to obesity Physical Deconditioning-generalized weakness. ----Physical therapy consulted as she needs to be mobilized. Students note has been reviewed with the student and necessary changes has been made at today's progress note. 1st Severe thrombocytopenia - does not have any skin changes suggestive of petechial rash for ongoing platelet drop. GI note reviewed. Her hemoglobin 10.8. Platelets consistently around 25,000. Fibrin and fibrin split products are in the normal range D-dimer 0.33. Consulted hematology yesterday and it appears they want to do platelet transfusion today. She is not getting any antiplatelet and anticoagulant even though her speech strongly suggestive of cerebellar stroke. -Difficult scenario we cannot start her on either 1 of that given her significan t thrombocytopenia requiring platelet transfusion. CT angiogram no significant stenosis service carotid Doppler. Gain we cannot get the MRI due to her obesity. -Also MRI may not have much impact on the current management. Neurology note reviewed. Patient's mentation at baseline. No PPI allergy -will remove that from the allergy list and continue with the PPI IV twice a day and transition to p.o. twice a day at least for a month and then once daily. Neurology on board GI signed off 01/17 Thrombocytopenia -Platelets increased to 50,000 after platelet transfusion. No skin changes suggestive of petechial rash. Her mouth looks much better than yesterday. No sign of bleeding in the mouth. -Likely due to sepsis from UTI. Did not receive heparin during last visit in November so not likely HIT. ---Also fibrin products are all in the normal range unlikely DIC -Reviewed hematology report----they are okay with starting the patient on daily baby aspirin Dysarthria-improving -We will start her on daily baby aspirin along with statin - Hypokalemia- replace Will check TSH, vitamin D as well given her debilitation and the lot of shakiness. Her mag is in the normal range. Patient mentation at baseline. Continue to monitor. Attempt is made to try to get the MRI at [place]. I talked to the transfer center. We will see whether she meets the criteria to get the MRI there. I talked to the caregiver. Patient wants to be DNR. Orders are placed. Vaginal bleed -This has been addressed during her last hospitalization. I talked to the chemist intern at that time. There is not much they can do at this point. He does not appear any urgent intervention required. Bleeding is not profuse she is hemodynamically stable. Will follow closely. Her plan is discussed with the student in detail and the student's progress note is edited accordingly.
[2020-01-18] MEDS ORDERED: Morphine 2 MG/ML VIAL SLOW IVP PRN (12:25)
--- NOTE | 2020-01-18 13:27 | PDOC.MOPN ---
Interval History: confused today, family at bedside. States has scant vaginal bleed. - Vital Signs Vital Signs: Vital Signs (12 hours) Temp Pulse Resp BP Pulse Ox 01/18/20 11:00 99.0 F 101 H 20 111/79 95 01/18/20 08:20 95 01/18/20 07:12 98.5 F 102 H 22 H 93/66 95 Weight Admit Weight 290 lb Weight 315 lb Most Recent Monitor Data Heart Rate from ECG 99 NIBP 99/71 NIBP BP-Mean 80 Respiration from ECG 21 SpO2 97 - Physical Exam General: Cooperative HEENT: Atraumatic Lungs: Clear to auscultation Cardiovascular: Regular rate Abdomen: Normal bowel sounds Neurological: Normal speech - Labs Result Diagrams: 01/18/20 05:40 01/18/20 05:40 Lab results: Laboratory Results - last 24 hr 01/18/20 05:40: WBC 9.0, RBC 3.42 L, Hgb 10.2 L, Hct 29.4 L, MCV 86.1, MCH 29.9, MCHC 34.8, RDW 12.4, Plt Count 50 L, MPV 9.0, Neutrophils % (Manual) 69, Band Neuts % (Manual) 3 L, Lymphocytes % (Manual) 16 L, Monocytes % (Manual) 9, Metamyelocytes % (Man) 3 H 01/18/20 05:40: Sodium 144, Potassium 3.2 L, Chloride 117 H, Carbon Dioxide 16 L, Anion Gap 14, BUN 15, Creatinine 0.71, Estimated GFR (MDRD) 85, Glucose 87, Calcium 8.5 01/16/20 06:27: Diff Path Review 01/16/20 04:13: Blood Type O NEGATIVE, Antibody Screen NEGATIVE Status: lab reviewed by me A/P - Problem (1) Thrombocytopenia Current Visit: Yes Code(s): D69.6 - THROMBOCYTOPENIA, UNSPECIFIED Status: Acute (2) New onset atrial fibrillation Current Visit: Yes Code(s): I48.91 - UNSPECIFIED ATRIAL FIBRILLATION Status: Acute (3) Septic shock Current Visit: Yes Code(s): A41.9 - SEPSIS, UNSPECIFIED ORGANISM; R65.21 - SEVERE SEPSIS WITH SEPTIC SHOCK Status: Acute - Plan Plan: 1. platelets 50K today after transfusion, recheck daily 2. no petechiae, purpura, wet purpura 3. ok for daily ASA 81 mg 4. family declined continuity reader consult for vaginal bleeding.
[2020-01-18] MEDS ORDERED: Potassium Chloride 40 MEQ in Sodium Chloride 0.45% 1,000 ML IV SCH (13:30)
[2020-01-18 14:57] LABS: Vitamin D, 25 Hydroxy 26.2 ng/ml (> 30.0)
[2020-01-18 15:02] LABS: Thyroid Stimulating Hormone 2.4367 uIU/mL (0.35-4.94)
--- NOTE | 2020-01-18 16:11 | CT ---
CTA OF THE HEAD WITH AND WITHOUT IV CONTRAST AND 3-D REFORMATTED IMAGING. CTA OF THE NECK WITH IV CONTRAST AND 3-D REFORMATTED IMAGING. INDICATION: 59-year-old female with history of slurred speech status post TPA COMPARISON: CT of the brain without contrast dated January 13, 2020 FINDINGS: CTA OF THE HEAD WITH AND WITHOUT CONTRAST: NONCONTRAST CT OF BRAIN: Hemorrhage: None Ischemia/Infarction: None. Midline Shift: None. Hydrocephalus: None. Skull and Extracranial Soft tissues: There is mastoid effusion involving the right mastoid air cells which is stable. CTA OF THE BRAIN: Right ICA: Patent. Right MCA: Patent. Right ANDRIY: Patent. ACOM: Patent. Left ICA: Patent. Left MCA: Patent. Left ANDRIY: Patent. PCOMs: Patent. Vertebral arteries: Patent. Basilar Artery: Patent. social services director: Patent. Incidentals: No abnormal enhancement CTA OF THE NECK WITH CONTRAST: Right CCA: Patent. Right ICA: Patent. Right Subclavian: Patent. Right Vertebral Artery: Patent. Left CCA: Patent. Left ICA: Patent. Left Subclavian: Patent. Left Vertebral Artery: Patent. Aerodigestive tract: Clear. Parotids/Submandibular/Thyroid glands: Normal. Lymph nodes: No pathologically enlarged lymph nodes. Lung Apices: There is airspace consolidation in the right upper lobe and right lower lobe suspicious for pneumonia. There is a [id number] right-sided pleural effusion Bones: No acute osseous abnormality. Incidentals: None. IMPRESSION: 1. No hemodynamically significant stenosis, occlusion or aneurysmal formation. 2. No acute intracranial abnormality. 3. Persistent complete right mastoid effusion. 4. Right upper lobe and right lower lobe pneumonia with parapneumonic effusion Transcribed Date/Time: 01/18/2020 4:10 PM
[2020-01-18] MEDS: Atorvastatin Calcium 40 MG TAB PO SCH (20:38)
[2020-01-19] MEDS: Acetaminophen 500 MG TAB PO PRN (00:05)
[2020-01-19] MEDS: Sodium Chloride 0.45% 1,000 ML IV SCH ×3 (00:07→16:24)
[2020-01-19 05:31] LABS: #Eosinphils 0.1 thou/uL (0.0-0.7); #Lymphocytes 1.5 thou/uL (1.20-3.40); #Monocytes 0.8 thou/uL (0.11-0.59); #Neutrophils 6.5 thou/uL (1.40-6.50); %Basophils 0.1 % (0.0-1.0); %Eosinophils 1.5 % (0.0-10.0); %Lymphocytes 16.4 % (21.0-51.0); %Monocytes 9.4 % (0.0-10.0); %Neutrophils 72.6 % (42.0-75.0); Hemoglobin 10.4 g/dL (12.0-16.0); Mean Corpuscular HGB CONC 35.8 g/dL (32.0-36.0); Mean Corpuscular Hemoglobin 30.9 pg (27.0-31.0); Mean Corpuscular Volume 86.3 fL (78.0-98.0); Mean Platelet Volume 9.3 fL (7.4-10.4); Platelet Count 45 thou/uL (130-400); RBC Distribution Width 12.4 % (11.5-14.5); Red Blood Cell (RBC) Count 3.36 mill/uL (4.20-5.40); White Blood Cell (WBC) Count 8.9 thou/uL (4.8-10.8)
[2020-01-19 05:50] LABS: Anion Gap 14 mmol/L (10-20); BUN (Urea Nitrogen) 13 mg/dL (9.8-20.1); Calc. Creatinine Clearance 189 mL/min (70-130); Calcium 8.6 mg/dL (7.8-10.44); Carbon Dioxide 18 mmol/L (22-29); Chloride 117 mmol/L (98-107); Estimated GFR-MDRD 80; Glucose 75 mg/dL (70-105); Sodium 145 mmol/L (136-145)
[2020-01-19] MEDS: Nystatin Powder 15 GM BOT TOP SCH ×2 (09:03→21:30)
[2020-01-19] MEDS: Pantoprazole 40 MG VIAL IVP SCH ×2 (09:06→21:30)
--- NOTE | 2020-01-19 09:25 | PDOC.HOSPP ---
- Subjective Encounter Date: 01/19/20 Encounter Time: 09:10 Subjective: Pt. is in bed asleep. She is difficult to wake and responds with nods to all questions. Nurse is in the room and states no changes. She is having intermittent febrile episodes, tachypnea, and tachycardia. Son wants to change status back to full code. - Objective Vital Signs & Weight: Vital Signs (12 hours) Temp Pulse Resp BP BP Pulse Ox 01/19/20 07:24 98.8 F 112 H 22 H 93/65 95 01/19/20 01:06 98.7 F 01/18/20 23:24 100.3 F H 97 20 111/79 96 Weight Admit Weight 290 lb Weight 318 lb 11.2 oz Most Recent Monitor Data Heart Rate from ECG 99 NIBP 99/71 NIBP BP-Mean 80 Respiration from ECG 21 SpO2 97 I&O: 01/18/20 01/19/20 01/20/20 06:59 06:59 06:59 Intake Total 250 1800 Balance 250 1800 Result Diagrams: 01/19/20 04:58 01/19/20 04:58 Hospitalist ROS - Medication Medications: Active Medications Generic Name Dose Route Start Last Admin Trade Name Freq PRN Reason Stop Dose Admin Acetaminophen 500 mg 01/12/20 07:44 01/13/20 10:37 Acetaminophen 500 Mg Tab PO 500 mg Q6HR PRN Administration Pain Acidophilus 1 tab 01/12/20 09:00 01/18/20 08:25 Lactinex Tablet PO Not Given DAILY NAE Atorvastatin Calcium 40 mg 01/12/20 21:00 01/18/20 20:38 Atorvastatin Calcium 40 Mg Tab PO 40 mg HS NAE Administration Cholecalciferol 2,000 units 01/12/20 09:00 01/18/20 08:27 Cholecalciferol 1,000 Units (25 Mcg) Tab PO Not Given DAILY NAE Ferrous Sulfate 325 mg 01/12/20 09:00 01/18/20 08:27 Ferrous Sulfate 325 Mg Tab PO Not Given DAILY NAE Levofloxacin 750 mg/ Device 150 mls @ 100 mls/hr 01/13/20 18:00 01/17/20 17:38 IVPB 150 mls Q2D NAE Administration Sodium Chloride 1,000 mls @ 50 mls/hr 01/18/20 23:30 01/19/20 09:02 1/2 Normal Saline IV 1,000 mls .Q20H NAE Administration Megestrol Acetate 400 mg 01/16/20 17:00 01/18/20 17:46 Megestrol Acetate 800 Mg/20 Ml Udcup PO Not Given AC NAE Morphine Sulfate 2 mg 01/18/20 12:25 01/18/20 12:34 Morphine 2 Mg/Ml Vial SLOW IVP 2 mg Q6H PRN Administration Moderate to Severe Pain (6-10) Nystatin 0 gm 01/12/20 09:00 01/19/20 09:03 Nystatin Powder 15 Gm Bot TOP 1 applic BID NAE Administration Ondansetron HCl 4 mg 01/11/20 20:33 01/15/20 09:31 Ondansetron Pf 4 Mg/2 Ml Vial IVP 4 mg Q6H PRN Administration Nausea/Vomiting Pantoprazole Sodium 40 mg 01/16/20 21:00 01/19/20 09:06 Pantoprazole 40 Mg Vial IVP 40 mg BID NAE Administration Sertraline HCl 150 mg 01/12/20 09:00 01/18/20 08:27 Sertraline Hcl 100 Mg Tab PO Not Given DAILY NAE Sodium Chloride 10 ml 01/18/20 09:00 01/19/20 09:02 Flush - Normal Saline 10 Ml Syringe IVF Not Given Q12HR ANE - Exam General Appearance: NAD Heart: RRR, no murmur, no gallops, no rubs, normal peripheral pulses Respiratory: CTAB, no wheezes, no rales, no ronchi, normal chest expansion, no tachypnea Gastrointestinal: soft, non-tender, non-distended, normal bowel sounds, no pal pable masses, no hepatomegaly, no splenomegaly Extremities: no cyanosis, no clubbing, no edema Hosp A/P (1) Septic shock Code(s): A41.9 - SEPSIS, UNSPECIFIED ORGANISM; R65.21 - SEVERE SEPSIS WITH SEPTIC SHOCK Status: Acute (2) Type 2 myocardial infarction Code(s): I21.A1 - MYOCARDIAL INFARCTION TYPE 2 Status: Acute (3) Encephalopathy acute Code(s): G93.40 - ENCEPHALOPATHY, UNSPECIFIED Status: Acute (4) Acute kidney injury Code(s): N17.9 - ACUTE KIDNEY FAILURE, UNSPECIFIED Status: Acute (5) Hyponatremia Code(s): E87.1 - HYPO-OSMOLALITY AND HYPONATREMIA Status: Acute (6) Hypokalemia Code(s): E87.6 - HYPOKALEMIA Status: Acute (7) Thrombocytopenia Code(s): D69.6 - THROMBOCYTOPENIA, UNSPECIFIED Status: Acute (8) New onset atrial fibrillation Code(s): I48.91 - UNSPECIFIED ATRIAL FIBRILLATION Status: Acute (9) Morbid obesity with BMI of 50.0-59.9, adult Code(s): E66.01 - MORBID (SEVERE) OBESITY DUE TO EXCESS CALORIES; Z68.43 - BODY MASS INDEX [BMI] 50.0-59.9, ADULT Status: Chronic (10) Physical deconditioning Code(s): R53.81 - OTHER MALAISE Status: Chronic (11) Anxiety and depression Code(s): F41.9 - ANXIETY DISORDER, UNSPECIFIED; F32.9 - MAJOR DEPRESSIVE DISORDER, SINGLE EPISODE, UNSPECIFIED Status: Chronic (12) UTI (urinary tract infection) Status: Acute Qualifiers: Urinary tract infection type: acute cystitis Hematuria presence: without hematuria Qualified Code(s): N30.00 - Acute cystitis without hematuria (13) Lactic acidosis Code(s): E87.2 - ACIDOSIS Status: Acute (14) Dyslipidemia Code(s): E78.5 - HYPERLIPIDEMIA, UNSPECIFIED Status: Chronic (15) GERD (gastroesophageal reflux disease) Code(s): K21.9 - GASTRO-ESOPHAGEAL REFLUX DISEASE WITHOUT ESOPHAGITIS Status: Chronic Qualifiers: Esophagitis presence: without esophagitis Qualified Code(s): K21.9 - Gastro-esophageal reflux disease without esophagitis - Plan Septic shock resolved. Patient is off vasopressors. Blood culture positive for staphylococcus epidermidis, gram positive sonny, staphylococcus capitis and presumptive corynebacterium sp. Currently on vancomycin. -----> will discontinue that A. fib--probably related to acute stress of septic shock Echocardiogram--- shows normal EF. No valvular vegetations or other abnormalities noted. -Given her history of coronary artery disease obesity as well as diabetic and limited ambulation she is at high risk for DVT and it is appropriate to start her on anticoagulant even though she is only 59-year-old. -Eliquis 5 mg twice a day.The patient's heart rate is controlled. Hypokalemia-potassium chloride 40 mEq IV ordered Poor p.o. intake -Will order appetite stimulant Megace -Ensure with each meals. CVA with significant dysarthria -EEG showed diffuse slowing with no specific findings related to seizures. - Echocardiogram--- shows normal EF. No valvular vegetations or other abnormalities noted. -Repeat CT done on did not show any significant abnormalities. And no mass or bleed. Mastoid sinusitis. -No MRI tried twice due to her obesity they are not able to do it. Even though initial CT did not show any abnormality given the clinical impression of significant dysarthria she will likely have cerebellar stroke. -She has no significant sensory impairment facial droopiness. Her strength is quite impaired however that probably due to her overall debilitation rather than focus weakness due to stroke. -Since this is a cerebellar stroke she does not require anticoagulation technically, however as explained before, she would benefit with daily baby aspirin and/or AC for secondary stroke prevnetion -A1c 5.6 TSH in the normal range. B12 also in the normal range. Hyperlipidemia - her Ldl is 126 -She is on Lipitor - Morbid obese Debilitation due to obesity Physical Deconditioning-generalized weakness. ----Physical therapy consulted as she needs to be mobilized. Students note has been reviewed with the student and necessary changes has been made at today's progress note. 1st Severe thrombocytopenia - does not have any skin changes suggestive of petechial rash for ongoing platelet drop. GI note reviewed. Her hemoglobin 10.8. Platelets consistently around 25,000. Fibrin and fibrin split products are in the normal range D-dimer 0.33. Consulted hematology yesterday and it appears they want to do platelet transfusion today. She is not getting any antiplatelet and anticoagulant even though her speech strongly suggestive of cerebellar stroke. -Difficult scenario we cannot start her on either 1 of that given her significant thrombocytopenia requiring platelet transfusion. CT angiogram no significant stenosis service carotid Doppler. Gain we cannot get the MRI due to her obesity. -Also MRI may not have much impact on the current management. Neurology note reviewed. Patient's mentation at baseline. No PPI allergy -will remove that from the allergy list and continue with the PPI IV twice a day and transition to p.o. twice a day at least for a month and then once daily. Neurology on board GI signed off 01/17 Thrombocytopenia -Platelets increased to 50,000 after platelet transfusion. No skin changes suggestive of petechial rash. Her mouth looks much better than yesterday. No sign of bleeding in the mouth. -Likely due to sepsis from UTI. Did not receive heparin during last visit in November so not likely HIT. ---Also fibrin products are all in the normal range unlikely DIC -Reviewed hematology report----they are okay with starting the patient on daily baby aspirin Dysarthria-improving -We will start her on daily baby aspirin along with statin Hypokalemia- replace Will check TSH, vitamin D as well given her debilitation and the lot of shakiness. Her mag is in the normal range. Patient mentation at baseline. Continue to monitor. Attempt is made to try to get the MRI at [facility]. I talked to the transfer center. We will see whether she meets the criteria to get the MRI there. I talked to the caregiver. Patient wants to be DNR. Orders are placed. Vaginal bleed -This has been addressed during her last hospitalization. I talked to the director product safety at that time. There is not much they can do at this point. He does not appear any urgent intervention required. Bleeding is not profuse she is hemodynamically stable. Will follow closely. Her plan is discussed with the student in detail and the student's progress note is edited accordingly. 01/18 Thrombocytopenia -Platelets have dropped to 45,000. There is no evidence of petechiae, purpura, or active bleeding. Decrease is probably due to redistribution. -Was started on ASA 81 mg -Continue to monitor platelets daily -If it drops further we can consider putting her on prednisone as a trial. Sepsis [fever, tachycardia and tachypnea] but normal white count--- secondary to likely pulmonary source -Pt. has been having febrile episodes as well as tachycardia and tachypnea. NEWS2 score of 6 currently. -Blood cultures 01/15 showed no growth; will repeat blood culture due to declining status -ID consult has been ordered. -Will start vancomycin and meropenem--allergic to penicillin noted but will keep a close eye on her for any cross allergic reaction to MonoPenam -CXR ordered to assess for possible pneumonia, pulmonary infiltrates -Potassium, B12 and TSH are within normal range. -Vitamin D low at 26.2 -- Ordered cholecalciferol 2000 units daily -Folate low at 1.9 --Ordered Folic acid 1mg daily Patient is back to Full Code status per son's request. -Palliative care has been consulted. Pt. had requested DNAR status when her mental status was good. Pt's son had requested full code until yesterday when he requested DNAR and then later in the same day he changed his mind and wants his mother to be full code. Discussed with the student and reviewed her notes and edited according to jaiden watkins's plan.
[2020-01-19] MEDS: Ferrous Sulfate 325 MG TAB PO SCH (12:47)
[2020-01-19] MEDS: Megestrol Acetate 800 MG/20 ML UDCUP PO SCH ×3 (12:47→16:21)
[2020-01-19] MEDS: Lactinex Tablet PO SCH (12:47)
[2020-01-19] MEDS: Lisinopril 2.5 MG TAB PO SCH (12:47)
[2020-01-19] MEDS: Aspirin 81 mg Enteric Coated Tablet PO SCH (12:47)
[2020-01-19] MEDS: Cholecalciferol 1,000 UNITS (25 MCG) TAB PO SCH (13:12)
[2020-01-19] MEDS ORDERED: Meropenem 2 GM in Admixture Fee 1 EACH IVPB SCH (14:00)
[2020-01-19 14:39] LABS: Heparin-Induced Ab (HITA) 0.085 OD (0.000-0.400)
[2020-01-19] MEDS: Meropenem 2 GM in Sodium Chloride 0.9% 100 ML IVPB SCH ×2 (14:41→21:35)
--- NOTE | 2020-01-19 19:08 | CON ---
DATE OF CONSULTATION: 01/19/2020 REASON FOR CONSULTATION: Fever of uncertain etiology. HISTORY OF PRESENT ILLNESS: Ms. Calvo is a 59-year-old, who has a history of hypertension, morbid obesity, pulmonary hypertension with cor pulmonale, and sleep apnea, who has had most of her medical care provided at [facility] since 2016. The patient was admitted there few times because of complications related to her chronic respiratory and cardiovascular illnesses including heart failure, pneumonia, pyelonephritis in 2019. In September 2019, she was admitted to the medical ICU for acute on chronic respiratory failure with hypoxia and hypercapnia. The patient does have chronic hypoventilation and wears oxygen 2 L nasal cannula at home chronically 24 hours a day. At [facility] in September this year, she had a CT scan of the chest showed low lung volumes, pericardial effusion, subcutaneous edema. She had a CT of head, which did not show any acute findings. Abdomen and pelvis CT with nodular left adrenal gland, hepatic cyst. She had blood gas performed, which showed a pH of 7.2, pCO2 of 90, and she was placed on BiPAP, but continued to have desaturation, altered mental state, and she was intubated and then treated in the ICU at [facility]. She stayed there until October 04 for about a week and the discharge diagnosis was acute on chronic respiratory failure with hypoxia and hypercapnia. She also was found to have cellulitis in the abdominal wall, and upon discharge, she received albuterol, Norvasc, iron, irbesartan, montelukast, ondansetron, sertraline, and cefdinir, as well as Coreg. She was readmitted a few days later on the after falling at home, and upon her discharge, when she got home, she was unable to get out of her recliner and then EMS was activated because she fell. This time, it was more of a placement issue and because of inability to have proper care at home, she was placed in a [facility] after several facilities rejecting her case. So, it looks like she actually went home with various providers arranged to visit her. She went home on albuterol, Norvasc, aspirin, Coreg, vitamin D, ferrous sulfate, irbesartan, lovastatin, montelukast, ondansetron, Zoloft. Cefdinir was discontinued. Subsequently, the patient ended up in the hospital at [facility] just 2 or 3 days later and there were some insurance issues, so they had to admit her for preauthorization for rehab. When she came in, a CBC was within normal limits, platelets 154,000. She was discharged on cefdinir, Coreg, Norvasc, aspirin, and then, I think she was transferred eventually to a [facility] and she was admitted on December 23, referred because of reported abdominal pain, nausea, vomiting. Dr. Michele admitted the patient, did an EGD, which demonstrated the gastric ulcers and gastritis, so she was treated for that and she was readmitted just a few days later to the Hospitalist Service because of confusional state. On arrival, she was reported as alert and oriented. BP was 101/76, pulse 84, respirations 15, O2 saturation 97 on 2 L. She had hypotension after admission with pulse going up to 102. She had nystagmus described and CT of head did not show any acute findings. There was evidence of lactic acidosis, troponin 0.051, and EKG with atrial fibrillation. Creatinine 1.38. Urinalysis with protein 50, wbc's greater than 50. WBC count in the peripheral blood was 10.2. She was given IV fluids and started on vancomycin and levofloxacin. The initial impression was sepsis, possible UTI, possible CVA, non-STEMI type 2, hyponatremia, KIRILL, and atrial fibrillation. She has remained afebrile until the past 2 days, when temperature went up to 100 and then 101.3. Her O2 saturations have ranged from 100 down to 95 and she was on 2 L and now she is on again 2.5 and then 2 L again. For the most part, she was not tachycardic, but now she has demonstrated tachycardia lately. The patient had a CT angiogram of the neck with and without contrast and it showed patent arteries. Serendipitously, there was evidence of airspace consolidation in the right upper lobe and right lower lobe, suspicious for pneumonia with a small to moderate right-sided pleural effusion. She had an echocardiogram with EF 55% to 60%. Because of development of worsening temperature elevation, Dr. Mills has broadened spectrum of coverage with meropenem in addition to the previous antimicrobials. Currently, Ms. Calvo is obtunded. She does not follow commands, does not interact with the examiner. She has not been drinking or eating anything really, and she has not had diarrhea. She has a few areas of skin breakdown in the groins. REVIEW OF SYSTEMS: Not possible. PAST MEDICAL HISTORY: Morbid obesity, obstructive sleep apnea, hypoventilation syndrome with O2 supplementation at home, evidence of hypercapnic and hypoxic respiratory failure with recent admission to [facility], prior history of pneumonia a few months ago at [facility], mobility impairment with recent mcc admission because of that, atrial fibrillation, gastritis with gastric ulcer diagnosed through EGD by Dr. Michele, hypertension, GERD, venous insufficiency, degenerative joint disease. PAST SURGICAL HISTORY: Hernia repair; knee arthroscopy; oophorectomy; removal of a breast tumor, it was not malignant. CURRENT MEDICATIONS: 1. Floranex. 2. Ecotrin. 3. Lipitor. 4. Tessalon. 5. Dulcolax. 6. Feosol. 7. Folvite. 8. Robitussin. 9. Zestril. 10. Claritin. 11. Megace. 12. Morphine. 13. Mycostatin. 14. Meropenem. 15. Vancomycin. 16. Levofloxacin. ALLERGIES: CEPHALEXIN, CLINDAMYCIN, DOXYCYCLINE, OXYCODONE, PENICILLINS, ALLERGY TO SULFA DRUGS WELL. PREDNISONE, NOT TRUE ALLERGY, BUT PALPITATIONS. SOCIAL HISTORY: Never smoker. No drug use. No alcoholic beverage use. Had been living with family, but due to problems with activities of daily living and self care, she was transferred to [facility], where she has been for the past 3 to 4 months. FAMILY HISTORY: Type 2 diabetes, heart disease. PHYSICAL EXAMINATION: VITAL SIGNS: T-max 101 just a few hours ago. She had been afebrile for most of her stay here. BP 102/67, pulse 104, respirations 20, and O2 saturation 95. SKIN: Shows areas of intertriginous maceration and abrasion, right and left groins. She has a peripheral IV access, and voiding in the diaper. GENERAL: The patient is obtunded, does not interact with the examiner, does not follow commands. In fact, she resists exam. HEENT: She has a very dry oral cavity with scabs and ulceration in the dorsum of her tongue and soft palate/hard palate, it has a dark color material. It was hard to evaluate her orbits because she would not open her eyes. Pupils seem to be reactive and equal. LUNGS: With diminished breath sounds at the bases. Hard to examine the lung area due to lack of cooperation. HEART: Markedly diminished heart sounds. No obvious murmurs. ABDOMEN: With very prominent panniculus. Soft. No guarding. No bladder distention. EXTREMITIES: She is able to move all extremities equally. She basically was withdrawing every time I tried to stimulate her plantar for reflexes. NEUROLOGIC: She was obtunded, did not interact with the examiner, did not follow commands. LABORATORY DATA: White cell count starts at 7.3 and went up to 14 and then it is down to 8.9. The platelets were 74 when she came in and they were down to 23 and now it is 45. Previous platelet counts were within normal limits back to September 2019. At [facility], the platelets were down to 100,000 consistently through all the admissions. Differential, initially 74% neutrophils and now 72. INR at 1.0. Sodium 144, creatinine 0.71. Vitamin B12 of 403. Calcium 8.5. Total protein 3, albumin 3.9, globulin was low, bilirubin 1.6, AST 36, ALT 30, alkaline phosphatase 53. Urinalysis with greater than 50 wbc's, leukocyte esterase 500. SARS-CoV-2 PCR not detected. Heparin-induced antibody was 0.085, which was negative. She had an abdomen and pelvis CT in November, which showed gallbladder calculi, a low- density lesion in central liver, potentially a large cyst. The spleen was large, measuring 15 cm, and the abnormalities in the lungs that were detected by the head angiogram CT. ASSESSMENT: Morbid obesity, cardiomyopathy, atrial fibrillation, hypoventilation syndrome requiring O2 supplementation at home with prior episode of hypercapnic respiratory failure which required intubation at [facility] just a few months ago, history of pneumonia in the past, altered mental state, recurrence of fever, encephalopathy. Likely R lung pneumonia, possibly from aspiration. DISCUSSION: The likely scenario here is hypoventilation syndrome, aspiration pneumonia, hypercapnic respiratory failure. The patient will need continuation of meropenem. Discontinue levofloxacin and vancomycin. Order, I guess the first chest x-ray, which I do not see one ordered before this admission. May need a CT of her chest, but we need a blood gas and evaluate for hypercapnic respiratory failure. She may need transfer for BiPAP to the IMCU, but I do not know if they have beds available there. Job ID: [id number] HOLDEN
--- NOTE | 2020-01-19 19:21 | RAD ---
ONE VIEW CHEST: 01/19/20 HISTORY: Follow-up pneumonia. COMPARISON: CTA neck on 01/16/20. FINDINGS: There is parenchymal air space opacity within the right upper lung zone worrisome for pneumonia. Left lung base is obscured due to overlying soft tissue density. The cardiac silhouette is magnified by p rojection. There is prominence of the left hilar structures which may be related to vascular structu res. No other interval change. IMPRESSION: Pneumonia right upper lung zone. Follow-up to complete resolution is recommended. POS: BÁRBARA
[2020-01-19] MEDS ORDERED: Vancomycin 1.5 GRAM/300 ML BAG 1.5 GM in Premix Bag 1 BAG IVPB SCH (21:00)
[2020-01-19] MEDS: Atorvastatin Calcium 40 MG TAB PO SCH ×2 (21:30→21:45)
[2020-01-20] MEDS: Acetaminophen 650 MG Suppository PR PRN ×2 (05:22→21:29)
[2020-01-20] MEDS: Sodium Chloride 0.45% 1,000 ML IV SCH (05:39)
[2020-01-20] MEDS: Meropenem 2 GM in Sodium Chloride 0.9% 100 ML IVPB SCH ×3 (06:45→21:14)
[2020-01-20 07:08] LABS: #Basophils 0.1 thou/uL (0.0-0.2); #Eosinphils 0.2 thou/uL (0.0-0.7); #Lymphocytes 1.5 thou/uL (1.20-3.40); #Neutrophils 6.3 thou/uL (1.40-6.50); %Basophils 0.8 % (0.0-1.0); %Lymphocytes 16.8 % (21.0-51.0); %Monocytes 11.3 % (0.0-10.0); %Neutrophils 69.2 % (42.0-75.0); Hemoglobin 10.6 g/dL (12.0-16.0); Mean Corpuscular HGB CONC 34.4 g/dL (32.0-36.0); Mean Corpuscular Hemoglobin 30.1 pg (27.0-31.0); Mean Corpuscular Volume 87.7 fL (78.0-98.0); Mean Platelet Volume 9.9 fL (7.4-10.4); Platelet Count 39 thou/uL (130-400); RBC Distribution Width 12.7 % (11.5-14.5); Red Blood Cell (RBC) Count 3.51 mill/uL (4.20-5.40); White Blood Cell (WBC) Count 9.1 thou/uL (4.8-10.8)
[2020-01-20 07:31] LABS: Anion Gap 17 mmol/L (10-20); BUN (Urea Nitrogen) 15 mg/dL (9.8-20.1); Calc. Creatinine Clearance 191 mL/min (70-130); Calcium 8.6 mg/dL (7.8-10.44); Carbon Dioxide 15 mmol/L (22-29); Chloride 119 mmol/L (98-107); Estimated GFR-MDRD 81; Glucose 73 mg/dL (70-105); Sodium 147 mmol/L (136-145)
[2020-01-20] MEDS: Megestrol Acetate 800 MG/20 ML UDCUP PO SCH ×3 (08:21→16:49)
[2020-01-20] MEDS: Aspirin 81 mg Enteric Coated Tablet PO SCH (09:44)
[2020-01-20] MEDS: Ferrous Sulfate 325 MG TAB PO SCH (09:44)
[2020-01-20] MEDS: Cholecalciferol 1,000 UNITS (25 MCG) TAB PO SCH (09:44)
[2020-01-20] MEDS: Folic Acid 1 MG TAB PO SCH (09:44)
[2020-01-20] MEDS: Lisinopril 2.5 MG TAB PO SCH (09:45)
[2020-01-20] MEDS: Lactinex Tablet PO SCH (09:45)
[2020-01-20] MEDS: Nystatin Powder 15 GM BOT TOP SCH ×2 (09:45→21:14)
--- NOTE | 2020-01-20 10:09 | PDOC.HOSPP ---
- Objective Vital Signs & Weight: Vital Signs (12 hours) Temp Pulse Resp BP Pulse Ox 01/20/20 07:18 99.2 F 108 H 22 H 97/66 91 L 01/20/20 05:22 100.6 F H 01/20/20 04:42 100.6 F H 117 H 20 112/80 94 L 01/19/20 23:35 97.7 F 102 H 20 98/55 L 92 L Weight Admit Weight 290 lb Weight 318 lb 11.2 oz Most Recent Monitor Data Heart Rate from ECG 99 NIBP 99/71 NIBP BP-Mean 80 Respiration from ECG 21 SpO2 97 I&O: 01/19/20 01/20/20 01/21/20 06:59 06:59 06:59 Intake Total 1800 600 700 Balance 1800 600 700 Result Diagrams: 01/20/20 06:45 01/20/20 06:45 Hospitalist ROS - Medication Medications: Active Medications Generic Name Dose Route Start Last Admin Trade Name Freq PRN Reason Stop Dose Admin Acetaminophen 500 mg 01/12/20 07:44 01/13/20 10:37 Acetaminophen 500 Mg Tab PO 500 mg Q6HR PRN Administration Pain Acetaminophen 650 mg 01/20/20 05:01 01/20/20 05:22 Acetaminophen 650 Mg Suppository GA 650 mg Q4H PRN Administration Headache/Fever or Pain Acidophilus 1 tab 01/12/20 09:00 01/20/20 09:45 Lactinex Tablet PO Not Given DAILY NAE Aspirin 81 mg 01/19/20 09:00 01/20/20 09:44 Aspirin 81 Mg Enteric Coated Tablet PO Not Given DAILY NAE Atorvastatin Calcium 40 mg 01/12/20 21:00 01/19/20 21:45 Atorvastatin Calcium 40 Mg Tab PO Not Given HS NAE Cholecalciferol 2,000 units 01/20/20 09:00 01/20/20 09:44 Cholecalciferol 1,000 Units (25 Mcg) Tab PO Not Given DAILY NAE Ferrous Sulfate 325 mg 01/12/20 09:00 01/20/20 09:44 Ferrous Sulfate 325 Mg Tab PO Not Given DAILY NAE Folic Acid 1 mg 01/20/20 09:00 01/20/20 09:44 Folic Acid 1 Mg Tab PO Not Given DAILY [facility] Sodium Chloride 1,000 mls @ 50 mls/hr 01/18/20 23:30 01/20/20 05:39 1/2 Normal Saline IV 1,000 mls .Q20H NAE Administration Meropenem 2 gm/ Sodium 100 mls @ 0 mls/hr 01/19/20 14:00 01/20/20 06:45 Chloride IVPB 100 mls Q8HR NAE Administration Lisinopril 2.5 mg 01/19/20 09:00 01/20/20 09:45 Lisinopril 2.5 Mg Tab PO Not Given DAILY NAE Megestrol Acetate 400 mg 01/16/20 17:00 01/20/20 08:21 Megestrol Acetate 800 Mg/20 Ml Udcup PO Not Given AC NAE Morphine Sulfate 2 mg 01/18/20 12:25 01/18/20 12:34 Morphine 2 Mg/Ml Vial SLOW IVP 2 mg Q6H PRN Administration Moderate to Severe Pain (6-10) Nystatin 0 gm 01/12/20 09:00 01/20/20 09:45 Nystatin Powder 15 Gm Bot TOP 1 applic BID NAE Administration Ondansetron HCl 4 mg 01/11/20 20:33 01/15/20 09:31 Ondansetron Pf 4 Mg/2 Ml Vial IVP 4 mg Q6H PRN Administration Nausea/Vomiting Pantoprazole Sodium 40 mg 01/16/20 21:00 01/19/20 21:30 Pantoprazole 40 Mg Vial IVP 40 mg BID NAE Administration Sertraline HCl 150 mg 01/12/20 09:00 01/20/20 09:45 Sertraline Hcl 100 Mg Tab PO Not Given DAILY NAE Sodium Chloride 10 ml 01/18/20 09:00 01/20/20 09:45 Flush - Normal Saline 10 Ml Syringe IVF Not Given Q12HR NAE Hosp A/P (1) Septic shock Code(s): A41.9 - SEPSIS, UNSPECIFIED ORGANISM; R65.21 - SEVERE SEPSIS WITH SEPTIC SHOCK Status: Acute (2) Type 2 myocardial infarction Code(s): I21.A1 - MYOCARDIAL INFARCTION TYPE 2 Status: Acute (3) Encephalopathy acute Code(s): G93.40 - ENCEPHALOPATHY, UNSPECIFIED Status: Acute (4) Acute kidney injury Code(s): N17.9 - ACUTE KIDNEY FAILURE, UNSPECIFIED Status: Acute (5) Hyponatremia Code(s): E87.1 - HYPO-OSMOLALITY AND HYPONATREMIA Status: Acute (6) Hypokalemia Code(s): E87.6 - HYPOKALEMIA Status: Acute (7) Thrombocytopenia Code(s): D69.6 - THROMBOCYTOPENIA, UNSPECIFIED Status: Acute (8) New onset atrial fibrillation Code(s): I48.91 - UNSPECIFIED ATRIAL FIBRILLATION Status: Acute (9) Morbid obesity with BMI of 50.0-59.9, adult Code(s): E66.01 - MORBID (SEVERE) OBESITY DUE TO EXCESS CALORIES; Z68.43 - BODY MASS INDEX [BMI] 50.0-59.9, ADULT Status: Chronic (10) Physical deconditioning Code(s): R53.81 - OTHER MALAISE Status: Chronic (11) Anxiety and depression Code(s): F41.9 - ANXIETY DISORDER, UNSPECIFIED; F32.9 - MAJOR DEPRESSIVE DISORDER, SINGLE EPISODE, UNSPECIFIED Status: Chronic (12) UTI (urinary tract infection) Status: Acute Qualifiers: Urinary tract infection type: acute cystitis Hematuria presence: without hematuria Qualified Code(s): N30.00 - Acute cystitis without hematuria (13) Lactic acidosis Code(s): E87.2 - ACIDOSIS Status: Acute (14) Dyslipidemia Code(s): E78.5 - HYPERLIPIDEMIA, UNSPECIFIED Status: Chronic (15) GERD (gastroesophageal reflux disease) Code(s): K21.9 - GASTRO-ESOPHAGEAL REFLUX DISEASE WITHOUT ESOPHAGITIS Status: Chronic Qualifiers: Esophagitis presence: without esophagitis Qualified Code(s): K21.9 - Gastro-esophageal reflux disease without esophagitis - Plan Septic shock resolved. Patient is off vasopressors. Blood culture positive for staphylococcus epidermidis, gram positive sonny, staphylococcus capitis and presumptive corynebacterium sp. Currently on vancomycin. -----> will discontinue that A. fib--probably related to acute stress of septic shock Echocardiogram--- shows normal EF. No valvular vegetations or other abnormalities noted. -Given her history of coronary artery disease obesity as well as diabetic and limited ambulation she is at high risk for DVT and it is appropriate to start her on anticoagulant even though she is only 59-year-old. -Eliquis 5 mg twice a day.The patient's heart rate is controlled. Hypokalemia-potassium chloride 40 mEq IV ordered Poor p.o. intake -Will order appetite stimulant Megace -Ensure with each meals. CVA with significant dysarthria -EEG showed diffuse slowing with no specific findings related to seizures. - Echocardiogram--- shows normal EF. No valvular vegetations or other abnormalities noted. -Repeat CT done on did not show any significant abnormalities. And no mass or bleed. Mastoid sinusitis. -No MRI tried twice due to her obesity they are not able to do it. Even though initial CT did not show any abnormality given the clinical impression of significant dysarthria she will likely have cerebellar stroke. -She has no significant sensory impairment facial droopiness. Her strength is quite impaired however that probably due to her overall debilitation rather than focus weakness due to stroke. -Since this is a cerebellar stroke she does not require anticoagulation technically, however as explained before, she would benefit with daily baby aspirin and/or AC for secondary stroke prevnetion -A1c 5.6 TSH in the normal range. B12 also in the normal range. Hyperlipidemia - her Ldl is 126 -She is on Lipitor - Morbid obese Debilitation due to obesity Physical Deconditioning-generalized weakness. ----Physical therapy consulted as she needs to be mobilized. Students note has been reviewed with the student and necessary changes has been made at today's progress note. 1st Severe thrombocytopenia - does not have any skin changes suggestive of petechial rash for ongoing platelet drop. GI note reviewed. Her hemoglobin 10.8. Platelets consistently around 25,000. Fibrin and fibrin split products are in the normal range D-dimer 0.33. Consulted hematology yesterday and it appears they want to do platelet transfusion today. She is not getting any antiplatelet and anticoagulant even though her speech strongly suggestive of cerebellar stroke. -Difficult scenario we cannot start her on either 1 of that given her significant thrombocytopenia requiring platelet transfusion. CT angiogram no significant stenosis service carotid Doppler. Gain we cannot get the MRI due to her obesity. -Also MRI may not have much impact on the current management. Neurology note reviewed. Patient's mentation at baseline. No PPI allergy -will remove that from the allergy list and continue with the PPI IV twice a day and transition to p.o. twice a day at least for a month and then once daily. Neurology on board GI signed off 01/17 Thrombocytopenia -Platelets increased to 50,000 after platelet transfusion. No skin changes suggestive of petechial rash. Her mouth looks much better than yesterday. No sign of bleeding in the mouth. -Likely due to sepsis from UTI. Did not receive heparin during last visit in November so not likely HIT. ---Also fibrin products are all in the normal range unlikely DIC -Reviewed hematology report----they are okay with starting the patient on daily baby aspirin Dysarthria-improving -We will start her on daily baby aspirin along with statin Hypokalemia- replace Will check TSH, vitamin D as well given her debilitation and the lot of shakiness. Her mag is in the normal range. Patient mentation at baseline. Continue to monitor. Attempt is made to try to get the MRI at [place]. I talked to the transfer center. We will see whether she meets the criteria to get the MRI there. I talked to the caregiver. Patient wants to be DNR. Orders are placed. Vaginal bleed -This has been addressed during her last hospitalization. I talked to the spool salvager at that time. There is not much they can do at this point. He does not appear any urgent intervention required. Bleeding is not profuse she is hemodynamically stable. Will follow closely. Her plan is discussed with the student in detail and the student's progress note is edited accordingly. 01/18 Thrombocytopenia -Platelets have dropped to 45,000. There is no evidence of petechiae, purpura, or active bleeding. Decrease is probably due to redistribution. -Was started on ASA 81 mg -Continue to monitor platelets daily -If it drops further we can consider putting her on prednisone as a trial. Sepsis [fever, tachycardia and tachypnea] but normal white count--- secondary to likely pulmonary source -Pt. has been having febrile episodes as well as tachycardia and tachypnea. NEWS2 score of 6 currently. -Blood cultures 01/15 showed no growth; will repeat blood culture due to declining status -ID consult has been ordered. -Will start vancomycin and meropenem--allergic to penicillin noted but will keep a close eye on her for any cross allergic reaction to MonoPenam -CXR ordered to assess for possible pneumonia, pulmonary infiltrates -Potassium, B12 and TSH are within normal range. -Vitamin D low at 26.2 -- Ordered cholecalciferol 2000 units daily -Folate low at 1.9 --Ordered Folic acid 1mg daily Patient is back to Full Code status per son's request. -Palliative care has been consulted. Pt. had requested DNAR status when her mental status was good. Pt's son had requested full code until yesterday when he requested DNAR and then later in the same day he changed his mind and wants his mother to be full code. Discussed with the student and reviewed her notes and edited according to today's plan.
[2020-01-20] MEDS: Pantoprazole 40 MG VIAL IVP SCH ×2 (10:51→21:14)
[2020-01-20] MEDS: D5 1/2 NS w/40 mEq KCL 1,000 ML IV SCH (11:55)
--- NOTE | 2020-01-20 12:31 | CT ---
CT ANGIO CHEST PERFORMED WITH IV CONTRAST ENHANCEMENT WITH 3D RECONSTRUCTIONS: Date: 01/20/2020 HISTORY: Shortness of breath. COMPARISON: CT angio of neck dated 01/16/2020 which included the upper chest, and a CT abdomen and pelvis of 11/17. FINDINGS: There are fairly diffuse ground-glass parenchymal lung changes seen in both upper lobes, slightly mor e confluent infiltrate in the right upper lobe. In comparison to the 01/16/2020 CT study, the consoli dative lung changes in the right upper lobe show some improvement. There is a moderate right-sided pl eural effusion present. There is no significant mediastinal or hilar lymphadenopathy. There is good pulmonary artery opacific ation. I see no CT evidence for pulmonary embolus. Incompletely characterized right lobe liver lesion is again demonstrated, somewhat oblong in shape, m easuring 5.[address] Hounsfield unit numbers are in the cystic range, but they were higher on the previous CT abdomen. Further characterization of this with ultrasound may be helpful. IMPRESSION: 1. No CT evidence for pulmonary embolus. 2. Bilateral predominantly diffuse ground-glass parenchymal changes in both upper lobes, more conflu ent infiltrate within the right upper lobe. The right upper lobe changes actually have improved sligh tly as compared to the previous CT study. There is a moderate right pleural effusion. 3. No CT for pulmonary embolus. 4. Incompletely characterized right lobe liver lesion. I would suggest initial evaluation with ultra sound. POS: YELENA
--- NOTE | 2020-01-20 12:50 | PDOC.HOSPP ---
- Subjective Encounter Date: 01/20/20 Encounter Time: 10:00 Subjective: Patient looks quite lethargic. No obvious signs of any bleeding. Platelets still dropping. She had another episode of temperature this morning. she is also tachycardic. - Objective Vital Signs & Weight: Vital Signs (12 hours) Temp Pulse Resp BP Pulse Ox 01/20/20 09:30 95 01/20/20 07:18 99.2 F 108 H 22 H 97/66 91 L 01/20/20 05:22 100.6 F H 01/20/20 04:42 100.6 F H 117 H 20 112/80 94 L Weight Admit Weight 290 lb Weight 318 lb 11.2 oz Most Recent Monitor Data Heart Rate from ECG 99 NIBP 99/71 NIBP BP-Mean 80 Respiration from ECG 21 SpO2 97 I&O: 01/19/20 01/20/20 01/21/20 06:59 06:59 06:59 Intake Total 1800 600 700 Balance 1800 600 700 Result Diagrams: 01/20/20 06:45 01/20/20 06:45 Hospitalist ROS - Medication Medications: Active Medications Generic Name Dose Route Start Last Admin Trade Name Freq PRN Reason Stop Dose Admin Acetaminophen 500 mg 01/12/20 07:44 01/13/20 10:37 Acetaminophen 500 Mg Tab PO 500 mg Q6HR PRN Administration Pain Acetaminophen 650 mg 01/20/20 05:01 01/20/20 05:22 Acetaminophen 650 Mg Suppository SC 650 mg Q4H PRN Administration Headache/Fever or Pain Acidophilus 1 tab 01/12/20 09:00 01/20/20 09:45 Lactinex Tablet PO Not Given DAILY NAE Aspirin 81 mg 01/19/20 09:00 01/20/20 09:44 Aspirin 81 Mg Enteric Coated Tablet PO Not Given DAILY NAE Atorvastatin Calcium 40 mg 01/12/20 21:00 01/19/20 21:45 Atorvastatin Calcium 40 Mg Tab PO Not Given HS [facility] Cholecalciferol 2,000 units 01/20/20 09:00 01/20/20 09:44 Cholecalciferol 1,000 Units (25 Mcg) Tab PO Not Given DAILY NAE Ferrous Sulfate 325 mg 01/12/20 09:00 01/20/20 09:44 Ferrous Sulfate 325 Mg Tab PO Not Given DAILY NAE Folic Acid 1 mg 01/20/20 09:00 01/20/20 09:44 Folic Acid 1 Mg Tab PO Not Given DAILY NAE Meropenem 2 gm/ Sodium 100 mls @ 0 mls/hr 01/19/20 14:00 01/20/20 06:45 Chloride IVPB 100 mls Q8HR NAE Administration Potassium Chloride/Dextrose/Sod Cl 1,000 mls @ 50 mls/hr 01/20/20 10:15 01/20/20 11:55 D5 1/2 Ns W/40 Meq Kcl IV Not Given .Q20H NAE Lisinopril 2.5 mg 01/19/20 09:00 01/20/20 09:45 Lisinopril 2.5 Mg Tab PO Not Given DAILY NAE Megestrol Acetate 400 mg 01/16/20 17:00 01/20/20 10:50 Megestrol Acetate 800 Mg/20 Ml Udcup PO 400 mg AC NAE Administration Morphine Sulfate 2 mg 01/18/20 12:25 01/18/20 12:34 Morphine 2 Mg/Ml Vial SLOW IVP 2 mg Q6H PRN Administration Moderate to Severe Pain (6-10) Nystatin 0 gm 01/12/20 09:00 01/20/20 09:45 Nystatin Powder 15 Gm Bot TOP 1 applic BID NAE Administration Ondansetron HCl 4 mg 01/11/20 20:33 01/15/20 09:31 Ondansetron Pf 4 Mg/2 Ml Vial IVP 4 mg Q6H PRN Administration Nausea/Vomiting Pantoprazole Sodium 40 mg 01/16/20 21:00 01/20/20 10:51 Pantoprazole 40 Mg Vial IVP 40 mg BID NAE Administration Sertraline HCl 150 mg 01/12/20 09:00 01/20/20 09:45 Sertraline Hcl 100 Mg Tab PO Not Given DAILY NAE Sodium Chloride 10 ml 01/18/20 09:00 01/20/20 09:45 Flush - Normal Saline 10 Ml Syringe IVF Not Given Q12HR NAE - Exam General Appearance: ill appearing Eye: PERRL, anicteric sclera ENT: normocephalic atraumatic Neck: supple Heart: RRR, normal peripheral pulses Respiratory: rales, rhonchi Gastrointestinal: soft, normal bowel sounds, distended Neurological: no focal deficits Psychiatric: oriented to person, oriented to place Hosp A/P (1) Septic shock Code(s): A41.9 - SEPSIS, UNSPECIFIED ORGANISM; R65.21 - SEVERE SEPSIS WITH SEPTIC SHOCK Status: Acute (2) Type 2 myocardial infarction Code(s): I21.A1 - MYOCARDIAL INFARCTION TYPE 2 Status: Acute (3) Encephalopathy acute Code(s): G93.40 - ENCEPHALOPATHY, UNSPECIFIED Status: Acute (4) Acute kidney injury Code(s): N17.9 - ACUTE KIDNEY FAILURE, UNSPECIFIED Status: Acute (5) Hyponatremia Code(s): E87.1 - HYPO-OSMOLALITY AND HYPONATREMIA Status: Acute (6) Hypokalemia Code(s): E87.6 - HYPOKALEMIA Status: Acute (7) Thrombocytopenia Code(s): D69.6 - THROMBOCYTOPENIA, UNSPECIFIED Status: Acute (8) New onset atrial fibrillation Code(s): I48.91 - UNSPECIFIED ATRIAL FIBRILLATION Status: Acute (9) Morbid obesity with BMI of 50.0-59.9, adult Code(s): E66.01 - MORBID (SEVERE) OBESITY DUE TO EXCESS CALORIES; Z68.43 - BODY MASS INDEX [BMI] 50.0-59.9, ADULT Status: Chronic (10) Physical deconditioning Code(s): R53.81 - OTHER MALAISE Status: Chronic (11) Anxiety and depression Code(s): F41.9 - ANXIETY DISORDER, UNSPECIFIED; F32.9 - MAJOR DEPRESSIVE DISORDER, SINGLE EPISODE, UNSPECIFIED Status: Chronic (12) UTI (urinary tract infection) Status: Acute Qualifiers: Urinary tract infection type: acute cystitis Hematuria presence: without hematuria Qualified Code(s): N30.00 - Acute cystitis without hematuria (13) Lactic acidosis Code(s): E87.2 - ACIDOSIS Status: Acute (14) Dyslipidemia Code(s): E78.5 - HYPERLIPIDEMIA, UNSPECIFIED Status: Chronic (15) GERD (gastroesophageal reflux disease) Code(s): K21.9 - GASTRO-ESOPHAGEAL REFLUX DISEASE WITHOUT ESOPHAGITIS Status: Chronic Qualifiers: Esophagitis presence: without esophagitis Qualified Code(s): K21.9 - Gastro-esophageal reflux disease without esophagitis - Plan Septic shock resolved. Patient is off vasopressors. Blood culture positive for staphylococcus epidermidis, gram positive sonny, staphylococcus capitis and presumptive corynebacterium sp. Currently on vancomycin. -----> will discontinue that A. fib--probably related to acute stress of septic shock Echocardiogram--- shows normal EF. No valvular vegetations or other abnormalities noted. -Given her history of coronary artery disease obesity as well as diabetic and limited ambulation she is at high risk for DVT and it is appropriate to start her on anticoagulant even though she is only 59-year-old. -Eliquis 5 mg twice a day.The patient's heart rate is controlled. Hypokalemia-potassium chloride 40 mEq IV ordered Poor p.o. intake -Will order appetite stimulant Megace -Ensure with each meals. CVA with significant dysarthria -EEG showed diffuse slowing with no specific findings related to seizures. - Echocardiogram--- shows normal EF. No valvular vegetations or other abnormalities noted. -Repeat CT done on did not show any significant abnormalities. And no mass or bleed. Mastoid sinusitis. -No MRI tried twice due to her obesity they are not able to do it. Even though initial CT did not show any abnormality given the clinical impression of significant dysarthria she will likely have cerebellar stroke. -She has no significant sensory impairment facial droopiness. Her strength is quite impaired however that probably due to her overall debilitation rather than focus weakness due to stroke. -Since this is a cerebellar stroke she does not require anticoagulation technically, however as explained before, she would benefit with daily baby aspirin and/or AC for secondary stroke prevnetion -A1c 5.6 TSH in the normal range. B12 also in the normal range. Hyperlipidemia - her Ldl is 126 -She is on Lipitor - Morbid obese Debilitation due to obesity Physical Deconditioning-generalized weakness. ----Physical therapy consulted as she needs to be mobilized. Students note has been reviewed with the student and necessary changes has been made at today's progress note. 1st Severe thrombocytopenia - does not have any skin changes suggestive of petechial rash for ongoing platelet drop. GI note reviewed. Her hemoglobin 10.8. Platelets consistently around 25,000. Fibrin and fibrin split products are in the normal range D-dimer 0.33. Consulted hematology yesterday and it appears they want to do platelet transfusion today. She is not getting any antiplatelet and anticoagulant even though her speech strongly suggestive of cerebellar stroke. -Difficult scenario we cannot start her on either 1 of that given her significant thrombocytopenia requiring platelet transfusion. CT angiogram no significant stenosis service carotid Doppler. Gain we cannot get the MRI due to her obesity. -Also MRI may not have much impact on the current management. Neurology note reviewed. Patient's mentation at baseline. No PPI allergy -will remove that from the allergy list and continue with the PPI IV twice a day and transition to p.o. twice a day at least for a month and then once daily. Neurology on board GI signed off 01/17 Thrombocytopenia -Platelets increased to 50,000 after platelet transfusion. No skin changes suggestive of petechial rash. Her mouth looks much better than yesterday. No sign of bleeding in the mouth. -Likely due to sepsis from UTI. Did not receive heparin during last visit in November so not likely HIT. ---Also fibrin products are all in the normal range unlikely DIC -Reviewed hematology report----they are okay with starting the patient on daily baby aspirin Dysarthria-improving -We will start her on daily baby aspirin along with statin Hypokalemia- replace Will check TSH, vitamin D as well given her debilitation and the lot of shakiness. Her mag is in the normal range. Patient mentation at baseline. Continue to monitor. Attempt is made to try to get the MRI at [place]. I talked to the transfer center. We will see whether she meets the criteria to get the MRI there. I talked to the caregiver. Patient wants to be DNR. Orders are placed. Vaginal bleed -This has been addressed during her last hospitalization. I talked to the fish frog or oyster farmer at that time. There is not much they can do at this point. He does not appear any urgent intervention required. Bleeding is not profuse she is hemodynamically stable. Will follow closely. Her plan is discussed with the student in detail and the student's progress note is edited accordingly. 01/18 Thrombocytopenia -Platelets have dropped to 45,000. There is no evidence of petechiae, purpura, or active bleeding. Decrease is probably due to redistribution. -Was started on ASA 81 mg -Continue to monitor platelets daily -If it drops further we can consider putting her on prednisone as a trial. Sepsis [fever, tachycardia and tachypnea] but normal white count--- secondary to likely pulmonary source -Pt. has been having febrile episodes as well as tachycardia and tachypnea. NEWS2 score of 6 currently. -Blood cultures 01/15 showed no growth; will repeat blood culture due to declini ng status -ID consult has been ordered. -Will start vancomycin and meropenem--allergic to penicillin noted but will keep a close eye on her for any cross allergic reaction to carbapenams -CXR ordered to assess for possible pneumonia, pulmonary infiltrates -Potassium, B12 and TSH are within normal range. -Vitamin D low at 26.2 -- Ordered cholecalciferol 2000 units daily -Folate low at 1.9 --Ordered Folic acid 1mg daily Patient is back to Full Code status per son's request. -Palliative care has been consulted. Pt. had requested DNAR status when her mental status was good. Pt's son had requested full code until yesterday when he requested DNAR and then later in the same day he changed his mind and wants his mother to be full code. Discussed with the student and reviewed her notes and edited according to today's plan. 4th Due to fever and worsening infiltrate in the chest x-ray, we did did the CT scan which is negative for pulmonary embolism. However diffuse groundglass breast parenchymal changes in both upper lobes as well as infiltrate in the right upper lobe. Moderate right pleural effusion. There is a questionable right lobe liver lesion - will follow up with the ultrasound. Possible interstitial lung disease versus organizing pneumonia -She is currently on meropenem. -Blood cultures done on January 18 will follow on it so far negative result. Wait for palliative care recommendations. Overall poor prognosis given her comorbidities and obesity.
[2020-01-20] MEDS: D5W-AA 4.25% with LYTES 1,000 ML IV SCH (13:12)
[2020-01-20] MEDS ORDERED: Iopamidol-370 76% 500 ML 1 ML ONE (13:28)
--- NOTE | 2020-01-20 16:11 | ULT ---
ULTRASOUND ABDOMEN LIMITED: (RIGHT UPPER QUADRANT) DATE: 01/20/2020 HISTORY: 54-year-old female with hepatic lesion found on CT. FINDINGS: Common duct: 4 mm. Gallbladder: Multiple moderate to large gallstones. Wall thickness is variable, borderline thickened . No pericholecystic fluid or excessive luminal distention. Liver: Somewhere near the junction between right and left lobes of the liver, there is a well circum scribed, approximately 5 x 3 x 3 cm cyst, that corresponds to the hepatic lesion found on CT's of 06/2019 and 12/06/2019. No solid hepatic mass identified, but the rest of the liver parenchyma is poo rly visualized. Right kidney: No hydronephrosis. Pancreas: Poorly visualized. There is a right pleural effusion. IMPRESSION: 1) 5 cm hepatic cyst. 2) Cholelithiasis. BYRON Mishra POS: DENNIS
[2020-01-20] MEDS: Atorvastatin Calcium 40 MG TAB PO SCH ×2 (21:14→21:24)
[2020-01-21] MEDS: Meropenem 2 GM in Sodium Chloride 0.9% 100 ML IVPB SCH ×3 (05:24→21:38)
[2020-01-21] MEDS: D5 1/2 NS w/40 mEq KCL 1,000 ML IV SCH (05:53)
[2020-01-21] MEDS: D5W-AA 4.25% with LYTES 1,000 ML IV SCH ×2 (09:26→23:33)
[2020-01-21] MEDS: Pantoprazole 40 MG VIAL IVP SCH ×2 (09:27→21:37)
[2020-01-21] MEDS: Cholecalciferol 1,000 UNITS (25 MCG) TAB PO SCH (11:06)
[2020-01-21] MEDS: Megestrol Acetate 800 MG/20 ML UDCUP PO SCH ×3 (11:06→17:20)
[2020-01-21] MEDS: Aspirin 81 mg Enteric Coated Tablet PO SCH (11:06)
[2020-01-21] MEDS: Folic Acid 1 MG TAB PO SCH (11:07)
[2020-01-21] MEDS: Lactinex Tablet PO SCH (11:07)
[2020-01-21] MEDS: Ferrous Sulfate 325 MG TAB PO SCH (11:07)
[2020-01-21 11:12] LABS: SARS-CoV-2 IgG Ab Non-Reactive (NonReactive); SARS-CoV-2 IgG Index 0.02 S/CO (< 1.40)
[2020-01-21] MEDS: Nystatin Powder 15 GM BOT TOP SCH ×2 (11:14→21:38)
[2020-01-21] MEDS: Lisinopril 2.5 MG TAB PO SCH (11:16)
--- NOTE | 2020-01-21 13:31 | PDOC.HOSPP ---
- Subjective Encounter Date: 01/21/20 Encounter Time: 08:50 Subjective: Pt. is awake and in bed. She is responsive to questions with severe dysarthria. There is dried blood visible in her nose and mouth. Nurse is in the room at this time and states pt has been refusing to take her medications and food. She is having low-grade fevers, is hypotensive and tachycardic. She has been placed on DNAR again. There will be a family meeting tomorrow at 11 am to discuss hospice. - Objective Vital Signs & Weight: Vital Signs (12 hours) Temp Pulse Resp BP BP BP Pulse Ox 01/21/20 12:00 98.3 F 107 H 20 111/75 94 L 01/21/20 11:16 100 107/79 01/21/20 08:00 98.0 F 112 H 22 H 101/71 95 01/21/20 04:46 99.2 F 109 H 20 96/64 92 L Weight Admit Weight 290 lb Weight 318 lb 1.6 oz Most Recent Monitor Data Heart Rate from ECG 99 NIBP 99/71 NIBP BP-Mean 80 Respiration from ECG 21 SpO2 97 I&O: 01/20/20 01/21/20 01/22/20 06:59 06:59 06:59 Intake Total 600 1930 Balance 600 1930 Result Diagrams: 01/20/20 06:45 01/20/20 06:45 Additional Labs: Accuchecks 01/21/20 04:45 POC Glucose 106 H Hospitalist ROS - Medication Medications: Active Medications Generic Name Dose Route Start Last Admin Trade Name Freq PRN Reason Stop Dose Admin Acetaminophen 500 mg 01/12/20 07:44 01/13/20 10:37 Acetaminophen 500 Mg Tab PO 500 mg Q6HR PRN Administration Pain Acetaminophen 650 mg 01/20/20 05:01 01/20/20 21:29 Acetaminophen 650 Mg Suppository IL 650 mg Q4H PRN Administration Headache/Fever or Pain Acidophilus 1 tab 01/12/20 09:00 01/21/20 11:07 Lactinex Tablet PO 1 tab DAILY NAE Administration Aspirin 81 mg 01/19/20 09:00 01/21/20 11:06 Aspirin 81 Mg Enteric Coated Tablet PO 81 mg DAILY NAE Administration Atorvastatin Calcium 40 mg 01/12/20 21:00 01/20/20 21:24 Atorvastatin Calcium 40 Mg Tab PO Not Given HS NAE Cholecalciferol 2,000 units 01/20/20 09:00 01/21/20 11:06 Cholecalciferol 1,000 Units (25 Mcg) Tab PO 2,000 units DAILY NAE Administration Ferrous Sulfate 325 mg 01/12/20 09:00 01/21/20 11:07 Ferrous Sulfate 325 Mg Tab PO 325 mg DAILY NAE Administration Folic Acid 1 mg 01/20/20 09:00 01/21/20 11:07 Folic Acid 1 Mg Tab PO 1 mg DAILY NAE Administration Meropenem 2 gm/ Sodium 100 mls @ 0 mls/hr 01/19/20 14:00 01/21/20 05:24 Chloride IVPB 100 mls Q8HR NAE Administration Potassium Chloride/Dextrose/Sod Cl 1,000 mls @ 50 mls/hr 01/20/20 10:15 01/21/20 05:53 D5 1/2 Ns W/40 Meq Kcl IV Not Given .Q20H NAE Amino Acids/Electrolytes/Dextrose 1,000 mls @ 80 mls/hr 01/20/20 12:15 01/21/20 09:26 Clinimix E 4.25/5 IV 1,000 mls INF NAE Administration Lisinopril 2.5 mg 01/19/20 09:00 01/21/20 11:16 Lisinopril 2.5 Mg Tab PO Not Given DAILY NAE Megestrol Acetate 400 mg 01/16/20 17:00 01/21/20 12:59 Megestrol Acetate 800 Mg/20 Ml Udcup PO 400 mg AC NAE Administration Morphine Sulfate 2 mg 01/18/20 12:25 01/18/20 12:34 Morphine 2 Mg/Ml Vial SLOW IVP 2 mg Q6H PRN Administration Moderate to Severe Pain (6-10) Nystatin 0 gm 01/12/20 09:00 01/21/20 11:14 Nystatin Powder 15 Gm Bot TOP 1 applic BID NAE Administration Ondansetron HCl 4 mg 01/11/20 20:33 01/15/20 09:31 Ondansetron Pf 4 Mg/2 Ml Vial IVP 4 mg Q6H PRN Administration Nausea/Vomiting Pantoprazole Sodium 40 mg 01/16/20 21:00 01/21/20 09:27 Pantoprazole 40 Mg Vial IVP 40 mg BID NAE Administration Sertraline HCl 150 mg 01/12/20 09:00 01/21/20 11:07 Sertraline Hcl 100 Mg Tab PO 150 mg DAILY NAE Administration Sodium Chloride 10 ml 01/18/20 09:00 01/21/20 11:06 Flush - Normal Saline 10 Ml Syringe IVF 10 ml Q12HR NAE Administration - Exam General Appearance: NAD, awake alert, ill appearing Heart: RRR, no murmur, no gallops, no rubs, normal peripheral pulses Respiratory: CTAB, no wheezes, no rales, normal chest expansion, no tachypnea Respiratory - other findings: crackles bilaterally Gastrointestinal: soft, non-distended, normal bowel sounds, no palpable masses, no hepatomegaly, no splenomegaly, tender to palpation Extremities: no cyanosis, no clubbing, no edema Skin: normal turgor, no lesions, no rashes Hosp A/P (1) Septic shock Code(s): A41.9 - SEPSIS, UNSPECIFIED ORGANISM; R65.21 - SEVERE SEPSIS WITH SEPTIC SHOCK Status: Acute (2) Type 2 myocardial infarction Code(s): I21.A1 - MYOCARDIAL INFARCTION TYPE 2 Status: Acute (3) Encephalopathy acute Code(s): G93.40 - ENCEPHALOPATHY, UNSPECIFIED Status: Acute (4) Acute kidney injury Code(s): N17.9 - ACUTE KIDNEY FAILURE, UNSPECIFIED Status: Acute (5) Hyponatremia Code(s): E87.1 - HYPO-OSMOLALITY AND HYPONATREMIA Status: Acute (6) Hypokalemia Code(s): E87.6 - HYPOKALEMIA Status: Acute (7) Thrombocytopenia Code(s): D69.6 - THROMBOCYTOPENIA, UNSPECIFIED Status: Acute (8) New onset atrial fibrillation Code(s): I48.91 - UNSPECIFIED ATRIAL FIBRILLATION Status: Acute (9) Morbid obesity with BMI of 50.0-59.9, adult Code(s): E66.01 - MORBID (SEVERE) OBESITY DUE TO EXCESS CALORIES; Z68.43 - BODY MASS INDEX [BMI] 50.0-59.9, ADULT Status: Chronic (10) Physical deconditioning Code(s): R53.81 - OTHER MALAISE Status: Chronic (11) Anxiety and depression Code(s): F41.9 - ANXIETY DISORDER, UNSPECIFIED; F32.9 - MAJOR DEPRESSIVE DISORDER, SINGLE EPISODE, UNSPECIFIED Status: Chronic (12) UTI (urinary tract infection) Status: Acute Qualifiers: Urinary tract infection type: acute cystitis Hematuria presence: without hematuria Qualified Code(s): N30.00 - Acute cystitis without hematuria (13) Lactic acidosis Code(s): E87.2 - ACIDOSIS Status: Acute (14) Dyslipidemia Code(s): E78.5 - HYPERLIPIDEMIA, UNSPECIFIED Status: Chronic (15) GERD (gastroesophageal reflux disease) Code(s): K21.9 - GASTRO-ESOPHAGEAL REFLUX DISEASE WITHOUT ESOPHAGITIS Status: Chronic Qualifiers: Esophagitis presence: without esophagitis Qualified Code(s): K21.9 - Gastro-esophageal reflux disease without esophagitis - Plan Septic shock resolved. Patient is off vasopressors. Blood culture positive for staphylococcus epidermidis, gram positive sonny, staphylococcus capitis and presumptive corynebacterium sp. Currently on vancomycin. -----> will discontinue that A. fib--probably related to acute stress of septic shock Echocardiogram--- shows normal EF. No valvular vegetations or other abnormalities noted. -Given her history of coronary artery disease obesity as well as diabetic and limited ambulation she is at high risk for DVT and it is appropriate to start her on anticoagulant even though she is only 59-year-old. -Eliquis 5 mg twice a day.The patient's heart rate is controlled. Hypokalemia-potassium chloride 40 mEq IV ordered Poor p.o. intake -Will order appetite stimulant Megace -Ensure with each meals. CVA with significant dysarthria -EEG showed diffuse slowing with no specific findings related to seizures. - Echocardiogram--- shows normal EF. No valvular vegetations or other abnormalities noted. -Repeat CT done on did not show any significant abnormalities. And no mass or bleed. Mastoid sinusitis. -No MRI tried twice due to her obesity they are not able to do it. Even though initial CT did not show any abnormality given the clinical impression of significant dysarthria she will likely have cerebellar stroke. -She has no significant sensory impairment facial droopiness. Her strength is quite impaired however that probably due to her overall debilitation rather than focus weakness due to stroke. -Since this is a cerebellar stroke she does not require anticoagulation technically, however as explained before, she would benefit with daily baby aspirin and/or AC for secondary stroke prevnetion -A1c 5.6 TSH in the normal range. B12 also in the normal range. Hyperlipidemia - her Ldl is 126 -She is on Lipitor - Morbid obese Debilitation due to obesity Physical Deconditioning-generalized weakness. Hypoventilation syndrome Severe thrombocytopenia - -Likely due to sepsis from UTI. Did not receive heparin during last visit in November so not likely HIT. ---Also fibrin products are all in the normal range unlikely DIC -Hematology was consulted - o okay with the baby aspirin -Status post 1 pack of platelet transfusion CT angiogram no significant stenosis service carotid Doppler. Gain we cannot get the MRI due to her obesity. -Also MRI may not have much impact on the current management. Attempt is made to try to get the MRI at [facility]. I talked to the transfer center. We will see whether she meets the criteria to get the MRI there. I talked to the caregiver. Patient wants to be DNR. Orders are placed. Vaginal bleed -This has been addressed during her last hospitalization. I talked to the hand dry cleaner at that time. There is not much they can do at this point. He does not appear any urgent intervention required. Bleeding is not profuse she is hemodynamically stable. Will follow closely. Her plan is discussed with the student in detail and the student's progress note is edited accordingly. 01/18 Thrombocytopenia -Platelets have dropped to 45,000. There is no evidence of petechiae, purpura, or active bleeding. Decrease is probably due to redistribution. -Was started on ASA 81 mg -Continue to monitor platelets daily -If it drops further we can consider putting her on prednisone as a trial. Sepsis [fever, tachycardia and tachypnea] but normal white count--- secondary to likely pulmonary source -Pt. has been having febrile episodes as well as tachycardia and tachypnea. NEWS2 score of 6 currently. -Blood cultures 01/15 showed no growth; will repeat blood culture due to declining status -ID consult has been ordered. -Will start vancomycin and meropenem--allergic to penicillin noted but will keep a close eye on her for any cross allergic reaction to carbapenams -CXR ordered to assess for possible pneumonia, pulmonary infiltrates -Potassium, B12 and TSH are within normal range. -Vitamin D low at 26.2 -- Ordered cholecalciferol 2000 units daily -Folate low at 1.9 --Ordered Folic acid 1mg daily Patient is back to Full Code status per son's request. -Palliative care has been consulted. Pt. had requested DNAR status when her men jeff status was good. Pt's son had requested full code until yesterday when he requested DNAR and then later in the same day he changed his mind and wants his mother to be full code. Discussed with the student and reviewed her notes and edited according to today's plan. 4th Due to fever and worsening infiltrate in the chest x-ray, we did did the CT scan which is negative for pulmonary embolism. However diffuse groundglass breast parenchymal changes in both upper lobes as well as infiltrate in the right upper lobe. Moderate right pleural effusion. There is a questionable right lobe liver lesion - will follow up with the ultrasound. Possible interstitial lung disease versus organizing pneumonia -She is currently on meropenem. -Blood cultures done on January 18 will follow on it so far negative result. Wait for palliative care recommendations. Overall poor prognosis given her comorbidities and obesity. 01/20 Pt. continues to have low-grade fevers, is hypotensive and tachypneic -CT was negative for PE but had moderate right pleural effusion. -US follow-up of right lobe liver lesion on CT showed a cyst 5x3x3 consistent [address] previous [address] on 01/19 and 12/05. -US also significant for multiple moderate-large gallstones and borderline thickened gallbladder wall--cholelithiasis suspected ---LFTs ordered to assess for elevated ALP to rule out bile duct obstruction with gall stones. -COVID IgG Ab was non-reactive -Blood cultures continue to show no growth --Pt. is back to DNAR status. - -Poor prognosis due to pt refusing to eat or take medications as well as comorbidities. A family meeting has been scheduled at 11 am tomorrow so palliative care and pt's caregiver can talk to the son about hospice. by Dr. Durham Patient seen and examined individually. The friend is at bedside. Patient not at baseline mentation quite fatigued and lethargic not actively involving the conversation. -Appreciate palliative care involvement with the family interaction. I talked to the care provider couple of times and the the son will be updated again. It is not unreasonable to be evaluated by hospice at this point.
[2020-01-21 14:48] LABS: #Basophils 0.1 thou/uL (0.0-0.2); #Eosinphils 0.2 thou/uL (0.0-0.7); #Lymphocytes 1.5 thou/uL (1.20-3.40); #Monocytes 0.9 thou/uL (0.11-0.59); %Eosinophils 2.5 % (0.0-10.0); %Lymphocytes 17.4 % (21.0-51.0); %Monocytes 10.8 % (0.0-10.0); %Neutrophils 68.3 % (42.0-75.0); Hemoglobin 10.4 g/dL (12.0-16.0); Mean Corpuscular HGB CONC 35.9 g/dL (32.0-36.0); Mean Corpuscular Hemoglobin 31.2 pg (27.0-31.0); Mean Platelet Volume 8.9 fL (7.4-10.4); Platelet Count 74 thou/uL (130-400); RBC Distribution Width 12.7 % (11.5-14.5); Red Blood Cell (RBC) Count 3.33 mill/uL (4.20-5.40); White Blood Cell (WBC) Count 8.8 thou/uL (4.8-10.8)
[2020-01-21 15:11] LABS: Anion Gap 13 mmol/L (10-20); BUN (Urea Nitrogen) 19 mg/dL (9.8-20.1); Calc. Creatinine Clearance 186 mL/min (70-130); Calcium 8.7 mg/dL (7.8-10.44); Carbon Dioxide 19 mmol/L (22-29); Chloride 117 mmol/L (98-107); Estimated GFR-MDRD 78; Glucose 120 mg/dL (70-105); Potassium 3.4 mmol/L (3.5-5.1); Sodium 146 mmol/L (136-145)
[2020-01-21 15:13] LABS: ALT (SGPT) 15 U/L (8-55); AST (SGOT) 10 U/L (5-34); Albumin 2.5 g/dL (3.5-5.0); Alkaline Phosphatase 36 U/L (40-110); Bilirubin, Direct 0.4 mg/dL (0.1-0.3); Bilirubin, Total 0.9 mg/dL (0.2-1.2); Protein, Total 5.1 g/dL (6.0-8.3)
[2020-01-21] MEDS: Atorvastatin Calcium 40 MG TAB PO SCH (21:38)
[2020-01-22] MEDS: D5 1/2 NS w/40 mEq KCL 1,000 ML IV SCH (04:20)
[2020-01-22] MEDS: Meropenem 2 GM in Sodium Chloride 0.9% 100 ML IVPB SCH ×2 (05:59→15:09)
[2020-01-22] MEDS: Aspirin 81 mg Enteric Coated Tablet PO SCH (09:13)
[2020-01-22] MEDS: Megestrol Acetate 800 MG/20 ML UDCUP PO SCH ×3 (09:13→16:39)
[2020-01-22] MEDS: Lactinex Tablet PO SCH (09:14)
[2020-01-22] MEDS: Ferrous Sulfate 325 MG TAB PO SCH (09:14)
[2020-01-22] MEDS: Cholecalciferol 1,000 UNITS (25 MCG) TAB PO SCH (09:14)
[2020-01-22] MEDS: Folic Acid 1 MG TAB PO SCH (09:14)
[2020-01-22] MEDS: Pantoprazole 40 MG VIAL IVP SCH (09:15)
[2020-01-22] MEDS: Nystatin Powder 15 GM BOT TOP SCH (09:15)
[2020-01-22] MEDS: Lisinopril 2.5 MG TAB PO SCH (09:28)
--- NOTE | 2020-01-22 10:30 | PDOC.HOSPP ---
- Subjective Encounter Date: 01/22/20 Encounter Time: 08:30 Subjective: Pt. is sleeping and difficult to wake. Platelets have increased. She has been afebrile but remains tachycardic and tachypneic. Pt. on peripheral parenteral nutrition. - Objective Vital Signs & Weight: Vital Signs (12 hours) Temp Pulse Resp BP Pulse Ox 01/22/20 09:28 110 H 01/22/20 07:11 98.5 F 110 H 22 H 105/72 93 L 01/22/20 00:00 98.3 F Weight Admit Weight 290 lb Weight 318 lb 1.6 oz Most Recent Monitor Data Heart Rate from ECG 99 NIBP 99/71 NIBP BP-Mean 80 Respiration from ECG 21 SpO2 97 I&O: 01/21/20 01/22/20 01/23/20 06:59 06:59 06:59 Intake Total 1930 1140 Balance 1930 1140 Result Diagrams: 01/21/20 14:27 01/21/20 14:27 Hospitalist ROS - Medication Medications: Active Medications Generic Name Dose Route Start Last Admin Trade Name Gerardq PRN Reason Stop Dose Admin Acetaminophen 500 mg 01/12/20 07:44 01/13/20 10:37 Acetaminophen 500 Mg Tab PO 500 mg Q6HR PRN Administration Pain Acetaminophen 650 mg 01/20/20 05:01 01/20/20 21:29 Acetaminophen 650 Mg Suppository LA 650 mg Q4H PRN Administration Headache/Fever or Pain Acidophilus 1 tab 01/12/20 09:00 01/22/20 09:14 Lactinex Tablet PO 1 tab DAILY NAE Administration Aspirin 81 mg 01/19/20 09:00 01/22/20 09:13 Aspirin 81 Mg Enteric Coated Tablet PO 81 mg DAILY NAE Administration Atorvastatin Calcium 40 mg 01/12/20 21:00 01/21/20 21:38 Atorvastatin Calcium 40 Mg Tab PO Not Given HS NAE Cholecalciferol 2,000 units 01/20/20 09:00 01/22/20 09:14 Cholecalciferol 1,000 Units (25 Mcg) Tab PO 2,000 units DAILY NAE Administration Ferrous Sulfate 325 mg 01/12/20 09:00 01/22/20 09:14 Ferrous Sulfate 325 Mg Tab PO 325 mg DAILY NAE Administration Folic Acid 1 mg 01/20/20 09:00 01/22/20 09:14 Folic Acid 1 Mg Tab PO 1 mg DAILY NAE Administration Meropenem 2 gm/ Sodium 100 mls @ 0 mls/hr 01/19/20 14:00 01/22/20 05:59 Chloride IVPB 100 mls Q8HR NAE Administration Potassium Chloride/Dextrose/Sod Cl 1,000 mls @ 50 mls/hr 01/20/20 10:15 01/22/20 04:20 D5 1/2 Ns W/40 Meq Kcl IV Not Given .Q20H NAE Amino Acids/Electrolytes/Dextrose 1,000 mls @ 80 mls/hr 01/20/20 12:15 23:33 Clinimix E 4.25/5 IV 1,000 mls INF NAE Administration Lisinopril 2.5 mg 01/19/20 09:00 01/22/20 09:28 Lisinopril 2.5 Mg Tab PO Not Given DAILY NAE Megestrol Acetate 400 mg 01/16/20 17:00 01/22/20 09:13 Megestrol Acetate 800 Mg/20 Ml Udcup PO 400 mg AC NAE Administration Morphine Sulfate 2 mg 01/18/20 12:25 01/18/20 12:34 Morphine 2 Mg/Ml Vial SLOW IVP 2 mg Q6H PRN Administration Moderate to Severe Pain (6-10) Nystatin 0 gm 01/12/20 09:00 01/22/20 09:15 Nystatin Powder 15 Gm Bot TOP 1 applic BID NAE Administration Ondansetron HCl 4 mg 01/11/20 20:33 01/15/20 09:31 Ondansetron Pf 4 Mg/2 Ml Vial IVP 4 mg Q6H PRN Administration Nausea/Vomiting Pantoprazole Sodium 40 mg 01/16/20 21:00 01/22/20 09:15 Pantoprazole 40 Mg Vial IVP 40 mg BID NAE Administration Sertraline HCl 150 mg 01/12/20 09:00 01/22/20 09:14 Sertraline Hcl 100 Mg Tab PO 150 mg DAILY NAE Administration Sodium Chloride 10 ml 01/18/20 09:00 01/22/20 09:16 Flush - Normal Saline 10 Ml Syringe IVF 10 ml Q12HR NAE Administration - Exam General Appearance: NAD, ill appearing ENT: dry oral mucosa Heart: RRR, no murmur, no gallops, no rubs, normal peripheral pulses Respiratory: CTAB, no wheezes, no rales, no ronchi, normal chest expansion, tachypneic Respiratory - other findings: crackles Gastrointestinal: soft, non-tender, non-distended, normal bowel sounds, no palpable masses, no hepatomegaly, no splenomegaly Extremities: no cyanosis, no clubbing, no edema Hosp A/P (1) Septic shock Code(s): A41.9 - SEPSIS, UNSPECIFIED ORGANISM; R65.21 - SEVERE SEPSIS WITH SEPTIC SHOCK Status: Acute (2) Type 2 myocardial infarction Code(s): I21.A1 - MYOCARDIAL INFARCTION TYPE 2 Status: Acute (3) Encephalopathy acute Code(s): G93.40 - ENCEPHALOPATHY, UNSPECIFIED Status: Acute (4) Acute kidney injury Code(s): N17.9 - ACUTE KIDNEY FAILURE, UNSPECIFIED Status: Acute (5) Hyponatremia Code(s): E87.1 - HYPO-OSMOLALITY AND HYPONATREMIA Status: Acute (6) Hypokalemia Code(s): E87.6 - HYPOKALEMIA Status: Acute (7) Thrombocytopenia Code(s): D69.6 - THROMBOCYTOPENIA, UNSPECIFIED Status: Acute (8) New onset atrial fibrillation Code(s): I48.91 - UNSPECIFIED ATRIAL FIBRILLATION Status: Acute (9) Morbid obesity with BMI of 50.0-59.9, adult Code(s): E66.01 - MORBID (SEVERE) OBESITY DUE TO EXCESS CALORIES; Z68.43 - BODY MASS INDEX [BMI] 50.0-59.9, ADULT Status: Chronic (10) Physical deconditioning Code(s): R53.81 - OTHER MALAISE Status: Chronic (11) Anxiety and depression Code(s): F41.9 - ANXIETY DISORDER, UNSPECIFIED; F32.9 - MAJOR DEPRESSIVE DISORDER, SINGLE EPISODE, UNSPECIFIED Status: Chronic (12) UTI (urinary tract infection) Status: Acute Qualifiers: Urinary tract infection type: acute cystitis Hematuria presence: without hematuria Qualified Code(s): N30.00 - Acute cystitis without hematuria (13) Lactic acidosis Code(s): E87.2 - ACIDOSIS Status: Acute (14) Dyslipidemia Code(s): E78.5 - HYPERLIPIDEMIA, UNSPECIFIED Status: Chronic (15) GERD (gastroesophageal reflux disease) Code(s): K21.9 - GASTRO-ESOPHAGEAL REFLUX DISEASE WITHOUT ESOPHAGITIS Status: Chronic Qualifiers: Esophagitis presence: without esophagitis Qualified Code(s): K21.9 - Gastro-esophageal reflux disease without esophagitis - Plan Septic shock resolved. Patient is off vasopressors. Blood culture positive for staphylococcus epidermidis, gram positive sonny, staphylococcus capitis and presumptive corynebacterium sp. Currently on vancomycin. -----> will discontinue that A. fib--probably related to acute stress of septic shock Echocardiogram--- shows normal EF. No valvular vegetations or other abnormaliti es noted. -Given her history of coronary artery disease obesity as well as diabetic and limited ambulation she is at high risk for DVT and it is appropriate to start her on anticoagulant even though she is only 59-year-old. -Eliquis 5 mg twice a day.The patient's heart rate is controlled. Hypokalemia-potassium chloride 40 mEq IV ordered Poor p.o. intake -Will order appetite stimulant Megace -Ensure with each meals. CVA with significant dysarthria -EEG showed diffuse slowing with no specific findings related to seizures. - Echocardiogram--- shows normal EF. No valvular vegetations or other abnormalities noted. -Repeat CT done on did not show any significant abnormalities. And no mass or bleed. Mastoid sinusitis. -No MRI tried twice due to her obesity they are not able to do it. Even though initial CT did not show any abnormality given the clinical impression of significant dysarthria she will likely have cerebellar stroke. -She has no significant sensory impairment facial droopiness. Her strength is quite impaired however that probably due to her overall debilitation rather than focus weakness due to stroke. -Since this is a cerebellar stroke she does not require anticoagulation technically, however as explained before, she would benefit with daily baby aspirin and/or AC for secondary stroke prevnetion -A1c 5.6 TSH in the normal range. B12 also in the normal range. Hyperlipidemia - her Ldl is 126 -She is on Lipitor Morbid obese Debilitation due to obesity Physical Deconditioning-generalized weakness. Hypoventilation syndrome Severe thrombocytopenia -Likely due to sepsis from UTI. Did not receive heparin during last visit in November so not likely HIT. ---Also fibrin products are all in the normal range unlikely DIC -Hematology was consulted - o okay with the baby aspirin -Status post 1 pack of platelet transfusion CT angiogram no significant stenosis service carotid Doppler. Gain we cannot get the MRI due to her obesity. -Also MRI may not have much impact on the current management. Attempt is made to try to get the MRI at [facility]. I talked to the transfer center. We will see whether she meets the criteria to get the MRI there. I talked to the caregiver. Patient wants to be DNR. Orders are placed. Vaginal bleed -This has been addressed during her last hospitalization. I talked to the counselling psychologist at that time. There is not much they can do at this point. He does not appear any urgent intervention required. Bleeding is not profuse she is hemodynamically stable. Will follow closely. Her plan is discussed with the student in detail and the student's progress note is edited accordingly. 01/18 Thrombocytopenia -Platelets have dropped to 45,000. There is no evidence of petechiae, purpura, or active bleeding. Decrease is probably due to redistribution. -Was started on ASA 81 mg -Continue to monitor platelets daily -If it drops further we can consider putting her on prednisone as a trial. Sepsis [fever, tachycardia and tachypnea] but normal white count--- secondary to likely pulmonary source -Pt. has been having febrile episodes as well as tachycardia and tachypnea. NEWS2 score of 6 currently. -Blood cultures 01/15 showed no growth; will repeat blood culture due to declining status -ID consult has been ordered. -Will start vancomycin and meropenem--allergic to penicillin noted but will keep a close eye on her for any cross allergic reaction to carbapenams -CXR ordered to assess for possible pneumonia, pulmonary infiltrates -Potassium, B12 and TSH are within normal range. -Vitamin D low at 26.2 -- Ordered cholecalciferol 2000 units daily -Folate low at 1.9 --Ordered Folic acid 1mg daily Patient is back to Full Code status per son's request. -Palliative care has been consulted. Pt. had requested DNAR status when her mental status was good. Pt's son had requested full code until yesterday when he requested DNAR and then later in the same day he changed his mind and wants his mother to be full code. Discussed with the student and reviewed her notes and edited according to today's plan. 4th Due to fever and worsening infiltrate in the chest x-ray, we did did the CT scan which is negative for pulmonary embolism. However diffuse groundglass breast parenchymal changes in both upper lobes as well as infiltrate in the right upper lobe. Moderate right pleural effusion. There is a questionable right lobe liver lesion - will follow up with the ultrasound. Possible interstitial lung disease versus organizing pneumonia -She is currently on meropenem. -Blood cultures done on January 18 will follow on it so far negative result. Wait for palliative care recommendations. Overall poor prognosis given her comorbidities and obesity. 01/20 Pt. continues to have low-grade fevers, is hypotensive and tachypneic -CT was negative for PE but had moderate right pleural effusion. -US follow-up of right lobe liver lesion on CT showed a cyst 5x3x3 consistent [address] CT on 01/19 and 12/05. -US also significant for multiple moderate-large gallstones and borderline thickened gallbladder wall--cholelithiasis suspected ---LFTs ordered to assess for elevated ALP to rule out bile duct obstruction with gall stones. -COVID IgG Ab was non-reactive -Blood cultures continue to show no growth --Pt. is back to DNAR status. - -Poor prognosis due to pt refusing to eat or take medications as well as comorbidities. A family meeting has been scheduled at 11 am tomorrow so palliative care and pt's caregiver can talk to the son about hospice. by Dr. Durham Patient seen and examined individually. The friend is at bedside. Patient not at baseline mentation quite fatigued and lethargic not actively involving the conversation. -Appreciate palliative care involvement with the family interaction. I talked to the care provider couple of times and the the son will be updated again. It is not unreasonable to be evaluated by hospice at this point. 01/21 -Pt. has hypoalbuminemia and ALP was low--this is possibly due to malnutrition as pt had been refusing to eat--------> so acute cholecystitis is ruled out. --Currently on parenteral nutrition -AST, ALT and Total bilirubin were within normal range; direct bilirubin was only mildly elevated --Do not suspect bile obstruction at this time Hypotension -Due to hypoalbuminemia causing low oncotic pressure -I will discontinue given the very low-dose of lisinopril which will not make much impact. Bolus normal saline to keep the systolic above 85. I talked to the in store demonstrator - if family is not opting for hospice then need to evaluate for PEG tube but I believe strongly that is not going to improve the quality of life. -Recommending Hospice--family meeting later today to discuss hospice care with son. Care discussed with the student and I agree with the plan as listed here.
[2020-01-22] MEDS ORDERED: Sodium Chloride 0.9% 200 ML IV SCH (12:00)
[2020-01-22 12:50] VITALS: BMI 58.1
[2020-01-22] MEDS: D5W-AA 4.25% with LYTES 1,000 ML IV SCH (13:44)
--- NOTE | 2020-01-22 15:56 | PRG ---
DATE OF SERVICE: 01/22/2020 SUBJECTIVE: Ms. Calvo is obtunded. She is not very responsive. OBJECTIVE: VITAL SIGNS: The temperature appears to have normalized. She is still tachycardic and tachypneic, saturating 92 to 94 on nasal cannula at 2.5 L. BP 93/74. HEENT: The mouth is very dry. She has a Dobhoff tube now or an NG tube. HEART: S1 and S2, regular rate. LUNGS: With diminished breath sounds at the bases. No obvious crackles or wheezing. ABDOMEN: Soft. Not distended or tender. : She is voiding in the diaper. NEUROLOGIC: She is very obtunded. LABORATORY DATA: White cell count 8.8, hemoglobin 10.4, platelets 74,000, and hemoglobin 10.4. Creatinine 0.76, bilirubin 0.4, albumin 2.5. SARS-CoV was not detected on January 10 and not detected by antibody either on January 20, so that pretty much rules out SARS-CoV infection. Microbiology with contaminated blood samples from admission and repeat specimens were negative. They could not obtain a blood gas because she was agitated. She had an abdominal ultrasound, which showed hepatic cyst, cholelithiasis, but no cholecystitis. She is currently receiving meropenem. ASSESSMENT AND DISCUSSION: Morbid obesity, cardiomyopathy, atrial fibrillation, hypoventilation syndrome requiring O2 supplementation at home with prior episode of hypercapnic respiratory failure which required intubation at [facility] just a few months ago, and now, altered mental state, pneumonia, relative hypoxemia, possible aspiration and possible hypoventilation syndrome. It is important for us to obtain an arterial blood gas as she may be having a CO2 narcosis, so I will try to get Respiratory Therapy to retry the blood gas collection. Continue antimicrobials. P.S.: in discussions with the nurse I discovered that there is intention of transferring pt to hospice care after discussions with family, so will cancell ABG. Cont. confort measures only. Job ID: [id number] MTDD
[2020-01-22 16:41] VITALS: BP 85/60; TEMP 98.6
[2020-01-22] MEDS ORDERED: Sodium Chloride 0.9% 200 ML IVPB PRN (17:24)
[2020-01-22] MEDS ORDERED: Sodium Chloride 0.9% 200 ML IVPB SCH (17:30)
--- NOTE | 2020-01-23 11:20 | PDOC.DS.DS ---
Provider - Provider Date of Admission: 01/11/20 19:38 Admitting Provider: Lawson Waters MD Primary Care Physician: Katrina Mendez MD Course - Hospital Course Hospital Course: (1) Septic shock Code(s): A41.9 - SEPSIS, UNSPECIFIED ORGANISM; R65.21 - SEVERE SEPSIS WITH SEPTIC SHOCK Status: Acute (2) Type 2 myocardial infarction Code(s): I21.A1 - MYOCARDIAL INFARCTION TYPE 2 Status: Acute (3) Encephalopathy acute Code(s): G93.40 - ENCEPHALOPATHY, UNSPECIFIED Status: Acute (4) Acute kidney injury Code(s): N17.9 - ACUTE KIDNEY FAILURE, UNSPECIFIED Status: Acute (5) Hyponatremia Code(s): E87.1 - HYPO-OSMOLALITY AND HYPONATREMIA Status: Acute (6) Hypokalemia Code(s): E87.6 - HYPOKALEMIA Status: Acute (7) Thrombocytopenia Code(s): D69.6 - THROMBOCYTOPENIA, UNSPECIFIED Status: Acute (8) New onset atrial fibrillation Code(s): I48.91 - UNSPECIFIED ATRIAL FIBRILLATION Status: Acute (9) Morbid obesity with BMI of 50.0-59.9, adult Code(s): E66.01 - MORBID (SEVERE) OBESITY DUE TO EXCESS CALORIES; Z68.43 - BODY MASS INDEX [BMI] 50.0-59.9, ADULT Status: Chronic (10) Physical deconditioning Code(s): R53.81 - OTHER MALAISE Status: Chronic (11) Anxiety and depression Code(s): F41.9 - ANXIETY DISORDER, UNSPECIFIED; F32.9 - MAJOR DEPRESSIVE DISORDER, SINGLE EPISODE, UNSPECIFIED Status: Chronic (12) UTI (urinary tract infection) Status: Acute Qualifiers: Urinary tract infection type: acute cystitis Hematuria presence: without hematuria Qualified Code(s): N30.00 - Acute cystitis without hematuria (13) Lactic acidosis Code(s): E87.2 - ACIDOSIS Status: Acute (14) Dyslipidemia Code(s): E78.5 - HYPERLIPIDEMIA, UNSPECIFIED Status: Chronic (15) GERD (gastroesophageal reflux disease) Code(s): K21.9 - GASTRO-ESOPHAGEAL REFLUX DISEASE WITHOUT ESOPHAGITIS Status: Chronic Qualifiers: Esophagitis presence: without esophagitis Qualified Code(s): K21.9 - Gastro-esophageal reflux disease without esophagitis Patient had a lengthy stay with a septic shock UTI atrial fibrillation management. Please see daily progress notes for more details. Due to her obesity and the several acute comorbidities her functional status declined over the course of her stay. CODE STATUS changed to DN AR. Hospice evaluation was in process on sixth evening. Patient had a hypotension on the day of sixth and mentally she was declining faster. Patient demised at 7:03 PM on sixth. Primary cause of her demise--sepsis due to urinary tract infection and coexisting several other acute morbidities including CVA, thrombocytopenia Secondary cause of demise morbid obesity leading to severe deconditioning and failure to thrive Resuscitation Status: 01/21/20 10:25 Resuscitation Status Routine Resuscitation Status: DNAR: NO Resuscitation Discussed with: Discussed with the patient and the caregiver - Labs Lab Results: 01/21/20 14:27 01/21/20 14:27 Abnormal Lab Results - Last 48 hrs 01/21/20 14:27: Sodium 146 H, Potassium 3.4 L, Chloride 117 H, Carbon Dioxide 19 L 01/21/20 14:27: RBC 3.33 L, Hgb 10.4 L, Hct 29.0 L, MCH 31.2 H, Plt Count 74 L, Lymphocytes % 17.4 L, Monocytes % 10.8 H, Monocytes # 0.9 H 01/21/20 14:27: Direct Bilirubin 0.4 H, Alkaline Phosphatase 36 L, Serum Total Protein 5.1 L, Albumin 2.5 L Microbiology - Entire Visit 01/16/20 08:13 Venous blood - Left Hand Blood Culture - Final NO GROWTH IN 5 DAYS 01/16/20 08:12 Venous blood - Right Hand Blood Culture - Final NO GROWTH IN 5 DAYS 01/19/20 14:39 Venous blood - Left Hand Blood Culture - Preliminary NO GROWTH AT 48 HOURS 01/19/20 14:39 Venous blood - Left Arm Blood Culture - Preliminary NO GROWTH AT 48 HOURS 01/16/20 18:45 Stool Stool Occult Blood (NAPOLEON) - Final 01/11/20 16:56 Venous blood - Left Hand Blood Culture - Final Staphylococcus epidermidis Presumptive Corynebacterium sp 01/11/20 16:56 Venous blood - Left Arm Blood Culture - Final Staphylococcus epidermidis Staphylococcus capitis Gram Positive Janak 01/11/20 16:49 Urine Straight Catheter Urine Culture - Final Escherichia coli - Physical Exam Vitals: Weight Admit Weight 290 lb Weight 318 lb Most Recent Monitor Data Heart Rate from ECG 99 NIBP 99/71 NIBP BP-Mean 80 Respiration from ECG 21 SpO2 97 Physical Exam: The patient was seen and examined on the day of discharge. Problem - Problem (1) Septic shock Code(s): A41.9 - SEPSIS, UNSPECIFIED ORGANISM; R65.21 - SEVERE SEPSIS WITH SEPTIC SHOCK Status: Acute (2) Type 2 myocardial infarction Code(s): I21.A1 - MYOCARDIAL INFARCTION TYPE 2 Status: Acute (3) Encephalopathy acute Code(s): G93.40 - ENCEPHALOPATHY, UNSPECIFIED Status: Acute (4) Acute kidney injury Code(s): N17.9 - ACUTE KIDNEY FAILURE, UNSPECIFIED Status: Acute (5) Hyponatremia Code(s): E87.1 - HYPO-OSMOLALITY AND HYPONATREMIA Status: Acute (6) Hypokalemia Code(s): E87.6 - HYPOKALEMIA Status: Acute (7) Thrombocytopenia Code(s): D69.6 - THROMBOCYTOPENIA, UNSPECIFIED Status: Acute (8) New onset atrial fibrillation Code(s): I48.91 - UNSPECIFIED ATRIAL FIBRILLATION Status: Acute (9) Morbid obesity with BMI of 50.0-59.9, adult Code(s): E66.01 - MORBID (SEVERE) OBESITY DUE TO EXCESS CALORIES; Z68.43 - BODY MASS INDEX [BMI] 50.0-59.9, ADULT Status: Chronic (10) Physical deconditioning Code(s): R53.81 - OTHER MALAISE Status: Chronic (11) Anxiety and depression Code(s): F41.9 - ANXIETY DISORDER, UNSPECIFIED; F32.9 - MAJOR DEPRESSIVE DISORDER, SINGLE EPISODE, UNSPECIFIED Status: Chronic (12) UTI (urinary tract infection) Status: Acute Qualifiers: Urinary tract infection type: acute cystitis Hematuria presence: without hematuria Qualified Code(s): N30.00 - Acute cystitis without hematuria (13) Lactic acidosis Code(s): E87.2 - ACIDOSIS Status: Acute (14) Dyslipidemia Code(s): E78.5 - HYPERLIPIDEMIA, UNSPECIFIED Status: Chronic (15) GERD (gastroesophageal reflux disease) Code(s): K21.9 - GASTRO-ESOPHAGEAL REFLUX DISEASE WITHOUT ESOPHAGITIS Status: Chronic Qualifiers: Esophagitis presence: without esophagitis Qualified Code(s): K21.9 - Gastro-esophageal reflux disease without esophagitis Plan - Discharge Medications Home Medications: Medication Instructions Recorded Confirmed Type Aspirin [Ecotrin Low Strength] 81 mg PO DAILY 10/10/19 01/11/20 History Carvedilol [Coreg] 25 mg PO BID 10/10/19 01/11/20 History Cholecalciferol (Vitamin D3) 2,000 unit PO DAILY 10/10/19 01/11/20 History [Vitamin D3] Ferrous Sulfate [Iron] 325 mg PO DAILY 10/10/19 01/11/20 History Ondansetron [Zofran ODT] 4 mg PO Q6HR 12/22/19 01/11/20 History Sertraline HCl [Zoloft] 150 mg PO DAILY 12/22/19 01/11/20 History Acetaminophen [Tylenol] 500 mg PO Q6HR PRN 01/11/20 01/11/20 History Amlodipine [Norvasc] 5 mg PO DAILY 01/11/20 01/11/20 History Clotrimazole 1% Cream [Lotrimin 1% 1 applic TOP BID PRN 01/11/20 01/11/20 History Cream] Famotidine 40 mg PO DAILY 01/11/20 01/11/20 History Lactobacillus [Floranex] 1 tab PO DAILY 01/11/20 01/11/20 History Nystatin 1,000,000 gm MC BID 01/11/20 01/11/20 History Omeprazole Magnesium [Prilosec] 40 mg PO 01/11/20 History Allergies: cephalexin [From Keflex] Allergy (Verified 01/11/20 22:33) clindamycin Allergy (Verified 01/11/20 22:33) doxycycline Allergy (Verified 01/11/20 22:33) Hives oxycodone [From Percocet] Allergy (Verified 01/11/20 22:33) Penicillins Allergy (Verified 01/11/20 22:33) prednisone Allergy (Verified 01/11/20 22:33) Sulfa (Sulfonamide Antibiotics) Allergy (Verified 01/11/20 22:33) - Follow up Plan Referrals: Katrina Mendez MD [Primary Care Provider] - Disposition: Quality - Care Measures CORE MEASURES:: N/A
--- NOTE | 2020-01-23 17:16 | EKG ---
Test Reason : Blood Pressure : / mmHG Vent. Rate : 099 BPM Atrial Rate : 096 BPM P-R Int : 000 ms QRS Dur : 092 ms QT Int : 346 ms P-R-T Axes : 000 099 221 degrees QTc Int : 444 ms Atrial fibrillation Rightward axis Inferior infarct , age undetermined Abnormal ECG Confirmed by STEPHANIA GALVIN, PETER Adam ([id number]), newspaper managing editor DEWAYNE GONZALEZ ([id number]) on 01/23/2020 5:16:18 PM Referred By: Confirmed By:PETER CAT MD
== END 2020-01-22 19:03 | disposition expired | DRG 871 ==
LOC: ERS 14:32 → CCU 19:38 → T4-B 01-13 12:56
PROVIDERS: ADMIT Student in an Organized Health Care Education/Training Program; ATTEND Internal Medicine
PROC: 3E033XZ Introduction of Vasopressor into Peripheral Vein, Percutaneous Approach (ICD-10-PCS; principal; 2020-01-11)
PROC: 02HV33Z Insertion of Infusion Device into Superior Vena Cava, Percutaneous Approach (ICD-10-PCS; 2020-01-11)
PROC: 30233R1 Transfusion of Nonautologous Platelets into Peripheral Vein, Percutaneous Approach (ICD-10-PCS; 2020-01-17)
DX: A41.51 Sepsis due to Escherichia coli [E. coli] (principal); R65.21 Severe sepsis with septic shock; I21.A1 Myocardial infarction type 2; J69.0 Pneumonitis due to inhalation of food and vomit; N17.9 Acute kidney failure, unspecified; G93.40 Encephalopathy, unspecified; E87.2 Acidosis; N30.00 Acute cystitis without hematuria; E87.1 Hypo-osmolality and hyponatremia; Z68.43 Body mass index [BMI] 50.0-59.9, adult; K92.1 Melena; I42.9 Cardiomyopathy, unspecified; E66.2 Morbid (severe) obesity with alveolar hypoventilation; Z20.828 Contact with and (suspected) exposure to other viral communicable diseases; Z66 Do not resuscitate; Z51.5 Encounter for palliative care; I35.0 Nonrheumatic aortic (valve) stenosis; N93.9 Abnormal uterine and vaginal bleeding, unspecified; E78.5 Hyperlipidemia, unspecified; E87.6 Hypokalemia; D69.6 Thrombocytopenia, unspecified; F41.9 Anxiety disorder, unspecified; K21.9 Gastro-esophageal reflux disease without esophagitis; I83.90 Asymptomatic varicose veins of unspecified lower extremity; F32.9 Major depressive disorder, single episode, unspecified; E78.00 Pure hypercholesterolemia, unspecified; I10 Essential (primary) hypertension; I48.91 Unspecified atrial fibrillation; Z88.0 Allergy status to penicillin; Z88.1 Allergy status to other antibiotic agents; Z88.8 Allergy status to other drugs, medicaments and biological substances; Z88.2 Allergy status to sulfonamides; Z79.82 Long term (current) use of aspirin; Z79.899 Other long term (current) drug therapy; Z74.01 Bed confinement status; Z99.2 Dependence on renal dialysis; Z99.81 Dependence on supplemental oxygen; Z82.49 Family history of ischemic heart disease and other diseases of the circulatory system; E88.09 Other disorders of plasma-protein metabolism, not elsewhere classified; I69.322 Dysarthria following cerebral infarction; R62.51 Failure to thrive (child)
CPT/HCPCS: 36415; 36416; 36430; 36556; 51701; 70450; 70496; 70498; 71045; 71275; 76705; 80048; 80053; 80061; 80076; 80202; 81003; 81015; 82274; 82306; 82553; 82607; 82746; 83036; 83605; 83690; 83735; 84443; 84484; 85025; 85060; 85362; 85379; 85384; 85610; 85730; 86769; 86850; 86900; 86901; 87040; 87077; 87086; 87149; 87186; 87635; 93005; 93306; 93880; 94760; 95712; 95819; 95957; 96360; 96365; 96367; 96368; C9113; J1650; J1956; J2185; J2270; J2405; J3370; J3475; J3480; J3490; J7030; J7050; P9035; P9047; Q9967; U0003